=== PATIENT | male | born 1945 | race Caucasian/White ===

== ENCOUNTER → 2019-01-22 12:51 | Outpatient (CLI) | payer MEDICARE, MEDICAID, SELFPAY ==
--- NOTE | 2019-01-22 13:02 | XR_ITS ---
PROCEDURE: XR KNEE LT 3V CLINICAL INDICATION: POST TRAUMATIC OSTEOARTHRITIS COMPARISON: No exams were available for comparison FINDINGS: No fracture or dislocation. No lytic or blastic change. There is normal mineralization. There are mild osteoarthritic changes involving all 3 compartments. Other findings:There is a small suprapatellar effusion. Generalized vascular calcification noted. IMPRESSION: Mild osteoarthritis. Small suprapatellar effusion Dictated by: Joaquin Gonzalez MD 01/22/2019 16:25 Electronically signed by Joaquin Gonzalez MD in [place] 01/22/2019 16:25
--- NOTE | 2019-01-22 13:02 | XR_ITS ---
PROCEDURE: XR CERVICAL SPINE 5V CLINICAL INDICATION: NECK PIN Neck pain COMPARISON: No exams were available for comparison FINDINGS: Normal alignment. No fracture or dislocation. Multilevel degenerative disc disease from C3 to C7. Facet and uncovertebral hypertrophy with mild foraminal narrowing on the right at C3-C4 C4-C5 and C5-C6 and on the left at C3-C4 C4-C5 and C5-C6. Incidental carotid artery calcification noted. IMPRESSION: Degenerative changes of the cervical spine as described above Dictated by: Joaquin Gonzalez MD 01/22/2019 16:24 Electronically signed by Joaquin Gonzalez MD in [place] 01/22/2019 16:24
== END ==
PROVIDERS: PCP Family Medicine; Visit Provider Family Medicine
DX: M54.2 Cervicalgia (principal); M17.32 Unilateral post-traumatic osteoarthritis, left knee
CPT/HCPCS: 72050; 73562

== ENCOUNTER → 2019-02-12 13:25 | Outpatient (CLI) | payer MEDICARE, MEDICAID, SELFPAY ==
--- NOTE | 2019-02-12 13:28 | MR_ITS ---
PROCEDURE: MR CERVICAL SPINE WO CON CLINICAL INDICATION: ARTHROPATHY OF CERVICAL SPINE Neck pain extending to the back of the head COMPARISON: XR CERVICAL SPINE 5V from 01/22/2019 TECHNIQUE: Standard multiplanar multiecho sequences are performed without contrast. 3-D MIP and myelographic images are also rendered and reviewed FINDINGS: Normal alignment. Cranial cervical junction has an unremarkable appearance. There is multilevel degenerative disc disease as outlined below. C2-C3: Unremarkable. C3-C4: There degenerative disc disease with bulging disc and ridging of the endplates which is eccentric toward the right along with facet and uncovertebral hypertrophy with severe right-sided foraminal narrowing and right lateral recess narrowing and moderate to severe left-sided foraminal narrowing. C4-C5: Degenerate disc disease with bulging disc with uncovertebral hypertrophy and bilateral foraminal narrowing. C5-C6: Degenerate disc disease with bulging disc along with facet hypertrophic change with moderate to severe bilateral foraminal narrowing. C6-C7: Degenerate disc disease with bulging disc with October tuber 0 hypertrophy and moderate to severe right foraminal narrowing and severe left-sided foraminal and lateral recess narrowing. C7-T1: Mild degenerative disc disease. T1-T2: Mild degenerative disc disease with 3 mm anterolisthesis of T1. There degenerative disc disease also at T2-T3 and T3-T4. There is bulging disc at T3-T4 which is only imaged in the sagittal plane. The No canal stenosis or extruded herniated disc IMPRESSION: Cervical spondylosis with multilevel degenerative disc disease along with bulging disc and uncovertebral hypertrophy with multiple levels of foraminal and lateral recess narrowing. Please see above for detailed description at each level. Dictated by: Joaquin Gonzalez MD 02/14/2019 09:55 Electronically signed by Joaquin Gonzalez MD in [place] 02/14/2019 09:55
== END ==
PROVIDERS: PCP Psychiatry & Neurology Sleep Medicine; Visit Provider Family Medicine
DX: M47.812 Spondylosis without myelopathy or radiculopathy, cervical region (principal)
CPT/HCPCS: 72141; 76376

== ENCOUNTER → 2020-07-07 07:03 | Outpatient (CLI) | payer MEDICARE, OTHER, SELFPAY ==
[2020-07-07 08:43] LABS: Coronavirus 19 IgG Antibody Negative (Negative); Coronavirus 19 IgM Antibody Negative (Negative)
== END ==
PROVIDERS: Visit Provider Surgery
DX: Z01.812 Encounter for preprocedural laboratory examination (principal); Z20.822 Contact with and (suspected) exposure to COVID-19; Z12.11 Encounter for screening for malignant neoplasm of colon; Z13.810 Encounter for screening for upper gastrointestinal disorder; R10.13 Epigastric pain
CPT/HCPCS: 36415; 86328

== ENCOUNTER 2020-07-08 08:08 | Day surgery (SDC) | payer MEDICARE, OTHER, SELFPAY ==
[2020-07-04 13:36] VITALS: BMI 23.1
[2020-07-08 08:24] VITALS: BP 134/89; PULSE 78; RESP 18; TEMP 36.6; O2SAT 96
--- NOTE | 2020-07-08 08:51 | HMH.ANESCL ---
[facility] Anesthesia Checklist - Patient Identification Patient Identification: Arm Band - Structural Data Admitted From: Home Planned Operative Procedure/s: egd/colonoscopy Consent for Planned Operative Procedure(s) Verified: Yes Verified Documents: Surgical Consent, History and Physical - NPO Status Verified Time NPO: 00:00 - Additional verifications Anesthesia Reactions: No Hx Blood Transfusions: No Blood Transfusion Reaction: No - Airway Assessment C-Spine Mobility Assessed: Yes (mp2) TMJ Mobility Assessed: Yes Dentition: Edentulous - Neurological Assessment Level of Consciousness: Awake, Alert - Anesthesia Plan Anesthesia Risk discussed: Yes Anesthesia Plan: Verified ASA Class: II Anesthesia Type: MAC [facility] History I have reviewed the patient's past medical history: Yes 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: Reports:: Anxiety, Hyperlipidemia, Hypertension Denies:: Cancer, Diabetes Mellitus Type 1, Diabetes Mellitus Type 2, Internal Pacemaker, Lung Disease, MRSA, Seizures *Have you ever received a pneumonia vaccine?: Yes *Have you received a flu vaccine this season?: No Other 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: Reports: Hypothyroidism. Denies: Blood Transfusion Reaction Anesthesia experience/problems:: nac Other Surgeries: Yes: Colonoscopy, Hernia Repair, Other. No: Pacemaker Amputation: No Fractures: No - *Social History Last grade of school completed: 7th or 8th Smoking Status: Never smoker Tobacco Type: cigarettes #Yrs smoked (if former smoker): 25 Alcohol Intake: current Alcohol Intake Frequency:: holidays/special occasions only Substance Use Type: denies use, other *Occupational Status:: retired Housing: house Household Members: family *Travel in the last 8 weeks: None Family Hx:: Cancer
[2020-07-08 09:25] VITALS: O2SAT 97
[2020-07-08 10:16] VITALS: BP 114/81; PULSE 77; RESP 12; TEMP 36.6; O2SAT 92
--- NOTE | 2020-07-08 10:23 | HMH.SCOPE ---
- Procedure: Date: 07/08/20 Patient Date of :: 1945 Procedure Performed:: Esophagogastroduodenoscopy with biopsies Total colonoscopy to terminal ileum with polypectomy using biopsy forceps and snare Indications:: Patient is a 74-year-old male from [facility] referred by Dr. Tidwell at this time due to some symptoms of abdominal cramping and rectal bleeding. Patient is somewhat of a poor historian. I had performed colonoscopy on him on 02/13/2019. He had numerous polyps NINE of which were adenomatous polyps. I had recommended colonoscopy within 2 years. He does have apparent family history of polyps and he states that his father had 2 colon resections for polyps. He was referred because recently he had developed lower abdominal cramping type pain with rectal bleeding. He states that 10 years ago he was clinically diagnosed with an ulcer. He also has associated pain when eating. He is on sucralfate. Performing Provider:: Geoffrey Gomez MD Referring Provider:: Velasquez Tidwell MD Sedation:: MAC sedation Procedure:: He was positioned in lateral decubitus position. Adequate intravenous sedation was achieved. Olympus endoscope was inserted over the oropharynx. Advanced through the esophagus. Esophagus overall appeared normal except distally there was a couple of islands of possible Sanchez's esophagus. Gastroesophageal junction was encountered at approximately 40 cm from the incisors. Stomach was cannulated and insufflated. There is diffuse nonerosive mild to moderate gastritis. Gastric antral mucosal biopsies obtained for CLOtest for H. pylori. Biopsy was obtained of the antrum and mid body and sent as gastric biopsy for histopathologic analysis. Pylorus was traversed. Duodenal bulb and duodenal sweep appeared unremarkable. Endoscope was withdrawn into the distal esophagus and biopsies were obtained at the gastroesophageal junction to rule out Sanchez's esophagus. Endoscope was withdrawn. Next attention was turned to colonoscopy. He was positioned in lateral decubitus position. Adequate intravenous sedation was achieved with anesthesia titration of propofol. Patient did have some visible internal hemorrhoids. Digital examination was performed which was unremarkable. Variable stiffness Olympus colonoscope was inserted via the anus. It was advanced to the cecum with some difficulty due to significant floppiness and redundancy of the sigmoid colon. Ultimately ileocecal valve and appendiceal orifice were identified. Colonic preparation was fair to poor but adequate visualization was achieved with thorough irrigation and suctioning. The colonoscope was advanced a short distance into the terminal ileum which was grossly normal. Colonoscope was withdrawn into the colon. There was a tiny diminutive polyp in the cecum removed with biopsy forceps. He did have some degree of pandiverticulosis. In the sigmoid colon there was an adenomatous polyp removed with cold cutting snare. There was AN area of focal inflammation with minor mucosal irregularity in the sigmoid colon which was biopsied. Retroflexion within the rectum revealed nonpathologic internal hemorrhoids. Colonoscope was withdrawn. 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 This seems to have resolved. If he has H. pylori positivity plan to treat this. If he has evidence of Sanchez's may need proton pump inhibitors. Given the suboptimal preparation and previous history of 9 adenomatous polyps less than 2 years ago recommend repeat colonoscopy in 2 years. Complicat
[2020-07-08 10:25] VITALS: BP 134/94; PULSE 66; RESP 12; O2SAT 93
[2020-07-08 10:35] VITALS: BP 131/85; PULSE 70; RESP 16; O2SAT 96
[2020-07-08 10:45] VITALS: BP 154/88; PULSE 65; RESP 16; TEMP 36.6; O2SAT 100
== END 2020-07-08 10:49 | disposition home or self-care (01) ==
LOC: OUTP 08:10
PROVIDERS: PCP Family Medicine; Visit Provider Surgery
PROC: 0DJ08ZZ Inspection of Upper Intestinal Tract, Via Natural or Artificial Opening Endoscopic (ICD-10-PCS; CPT 43235; principal; 2020-07-08 09:30)
DX: K22.9 Disease of esophagus, unspecified (principal); K29.60 Other gastritis without bleeding; K63.5 Polyp of colon; K63.9 Disease of intestine, unspecified; K57.30 Diverticulosis of large intestine without perforation or abscess without bleeding; K56.2 Volvulus; K64.0 First degree hemorrhoids; Z86.010 Personal history of colon polyps; Z83.71 Family history of colonic polyps; I10 Essential (primary) hypertension; E78.5 Hyperlipidemia, unspecified; F41.9 Anxiety disorder, unspecified
CPT/HCPCS: 43239; 45380; 45385; 87339; 88305; 88342

== ENCOUNTER → 2020-08-01 11:07 | Outpatient (CLI) | payer MEDICARE, OTHER, SELFPAY ==
[2020-08-01 11:28] LABS: Blood Urea Nitrogen 19 mg/dl (9-20); Estimated Glomerular Filt Rate 65 ml/min (>60); GFR (African American) 79 ML/MIN (>60)
== END ==
PROVIDERS: Visit Provider Surgery
DX: R10.9 Unspecified abdominal pain (principal)
CPT/HCPCS: 36415; 82565; 84520

== ENCOUNTER 2020-08-01 11:50 | Inpatient (IN) | payer MEDICARE, OTHER, SELFPAY ==
[2020-08-01] VITALS (11 sets, daily range): BP systolic 105–148; BP diastolic 49–77; PULSE 66–78; RESP 17–20; TEMP 27.2–38.1; O2SAT 89–98; BMI 23.1; BMI 22.8
--- NOTE | 2020-08-01 12:17 | CT_ITS ---
PROCEDURE: CT ABDOMEN PELVIS W CON CLINICAL INDICATION: mid abd pain Left-sided abdominal pain with weight loss COMPARISON: CT CT ANGIO CHEST from 04/11/2019 TECHNIQUE: IV Contrast: 75ML Isovue 370 Oral Contrast None Axial images obtained with sagittal and coronal reformats. All CT scans at the facility use one or more dose reduction, viz: automated exposure control, ma/kV adjustment per patient size (including targeted exams where dose is matched to indication, i.e. head), or iterative reconstruction technique. FINDINGS: LOWER THORAX: There are atelectatic changes involving the right lung base posteriorly. There is dense consolidation involving the left lower lobe lateral basilar segment. This has progressed since an older exam of 04/11/2019. The left hemidiaphragm is elevated. Coronary artery calcifications are noted. ABDOMEN & PELVIS: The liver has an unremarkable appearance. There is focal nodular thickening of the fundus of the gallbladder measuring 1.8 by 1 cm. The adrenal glands have an unremarkable appearance. There is a focal zone of decreased enhancement involving the posterior and inferior aspect of the spleen extending superiorly to the central aspect of the spleen. This is consistent with a splenic infarction. The splenic vein is enlarged with stranding of the fat around the splenic vein. These findings are suggestive of splenic vein thrombosis. The superior mesenteric vein and portal vein have an unremarkable appearance. There is haziness of the mesenteric fat in the left upper quadrant at the hilum of the spleen. The pancreas appears unremarkable. There is some thickening of the left pericolic gutter. There is haziness of the pericolic fat in this region as well and may be due to local reaction/inflammation from the splenic vein pathology as opposed to colonic inflammation.. Unremarkable appearing right kidney. 7.7 cm left renal cyst is noted. There is also a 14 mm left renal cyst. There is a mild amount of retained colonic feces. No evidence of appendicitis. There is colonic diverticulosis but no evidence of diverticulitis. Small amount fluid is present in the pelvis. Urinary bladder is slightly distended. Status post hernia repair with mesh centrally and in the left inguinal region in the lower pelvic area. No acute bony finding. IMPRESSION: 1. 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 2. Focal thickening of the fundus of the gallbladder. Differential diagnosis would include polyp, neoplasm, versus focal inflammatory change. Gallbladder ultrasound initially suggested for further evaluation. MRI may be needed at some point. 3. Increasing consolidation/volume loss of the anterior basilar segment of the left lower lobe with elevated left hemidiaphragm. 4. Colonic diverticulosis without evidence of diverticulitis. 5. Dr. Baird was notified of these findings by telephone 08/01/2020 at 2:15 p.m. Dictated by: Joaquin Gonzalez MD 08/01/2020 14:21 Joaquin Gonzalez MD in [place] 08/01/2020 14:21
[2020-08-01 12:26] LABS: Microscopic, Urine URINE MICROSCOPIC (MICROSCOPIC)
--- NOTE | 2020-08-01 12:29 | HMH.EDABDPAI ---
ED Disposition Clinical Impression: Splenic infarct, Thrombophlebitis Disposition: Admitted As Inpatient Condition on Discharge: Good Referrals: Sherry Tidwell MD [Primary Care Provider] - - Critical Care Critical Care Time: No Attestation: On 08/01/20, the high probability of a clinically significant, sudden or life threatening deterioration of the following system(s) required my full and direct attention, intervention and personal management. The time I documented below is in addition to time spent performing reported procedures but includes the following listed in this critical care notation. Medical Decision Making - Medical Records Medical records reviewed: Yes: I reviewed the patient's medical records. - Ildefonso Inquiry Pt receiving controlled substance: No Vital Signs: 08/01/20 11:51 08/01/20 13:00 08/01/20 13:45 Temperature 98.9 F Temperature Source Oral Pulse Rate 68 78 Pulse Rate [Left Radial] 71 Respiratory Rate 18 20 18 Blood Pressure 148/72 H 135/75 Blood Pressure [Right Arm] 131/75 Blood Pressure Mean [Right Arm] 93 Blood Pressure Source [Right Arm] Automatic Cuff Blood Pressure Position [Right Arm] Sitting 02 Sat by Pulse Oximetry 93 L 96 95 Oxygen Delivery Method Room Air - Lab Data Lab results reviewed: Yes: I reviewed the patient's lab results. Lab Results 08/01/20 12:05: Urine Color Dk yellow, Urine Appearance Clear, Urine pH 6.0, Ur Specific [place] >= 1.030, Urine Protein Trace, Urine Glucose (UA) Negative, Urine Ketones 1+, Urine Blood Trace-i, Urine Nitrate Negative, Urine Bilirubin Negative, Urine Urobilinogen 0.2, Ur Leukocyte Esterase 1+ A, Urine RBC 3-5, Urine WBC 10-20, Ur Squamous Epith Cells Occasional, Amorphous Sediment 1+, Urine Bacteria None 08/01/20 12:05: WBC 13.2 H, RBC 5.13, Hgb 16.0, Hct 47.3, MCV 92.2, MCH 31.1, MCHC 33.8, RDW 13.8, Plt Count 198, MPV 8.0, Neut % (Auto) 73.9, Lymph % (Auto) 17.4, [place] % (Auto) 8.2, Eos % (Auto) 0.3, Baso % (Auto) 0.2, Neut # (Auto) 9.8 H, Lymph # (Auto) 2.3, [place] # (Auto) 1.1 H, Eos # (Auto) 0.0, Baso # (Auto) 0.0 08/01/20 12:05: Sodium 137, Potassium 4.3, Chloride 101, Carbon Dioxide 25, Anion Gap 15.3 H, BUN 19, Creatinine 1.10, Estimated GFR 65, Est GFR ( Amer) 79, Glucose 110 H, Calcium 9.9, Total Bilirubin 1.2, AST 32, ALT 41, Alkaline Phosphatase 113, Total Protein 8.5 H, Albumin 4.7, Globulin 3.8 H, Albumin/Globulin Ratio 1.2, Lipase 65 08/01/20 14:00: Lactate 0.8 Result diagrams: 08/01/20 12:05 08/01/20 12:05 Orders (Tests/Meds): ED MEDICATIONS Generic Name Dose Route Start Last Admin Trade Name Freq PRN Reason Stop Dose Admin Acetaminophen 650 mg 08/01/20 14:54 Acetaminophen 325mg Tab PO 08/31/20 14:53 Q4HP PRN As Needed for Fever or Pain Heparin Sodium/Dextrose 500 mls @ 29 mls/hr 08/01/20 14:45 Heparin 25,000 Units In D5w 500ml Premix IV 08/31/20 14:44 .[id number] TARA 1,450 UNITS/HR Ondansetron HCl 4 mg 08/01/20 14:54 Ondansetron 4mg/2ml Vial IV 08/31/20 14:53 Q8HP PRN Nausea Pantoprazole Sodium 40 mg 08/02/20 09:00 Pantoprazole 40mg Tablet PO 09/01/20 08:59 DAILY TARA Discontinued Medications Generic Name Dose Route Start Last Admin Trade Name Freq PRN Reason Stop Dose Admin Heparin Sodium (Porcine) 6,500 unit 08/01/20 14:45 Heparin Sodium 5,000 Unit/Ml Vial IV 08/01/20 14:46 ONCE ONE Sodium Chloride 1,000 mls @ 999 mls/hr 08/01/20 12:30 08/01/20 12:24 Sod Chlor 0.9% 1000ml Bag IV 08/01/20 13:30 999 mls/hr .Q1H1M TARA Administration Iopamidol 75 ml 08/01/20 13:33 08/01/20 13:33 Iopamidol-370 (76%);100ml Bottle IV 08/01/20 13:34 75 ml ONCE ONE Administration Sodium Chloride 10 ml 08/01/20 13:33 08/01/20 13:33 Sodium Chloride 0.9% 10ml Syr (Rad Only) IV 08/01/20 13:34 10 ml ONCE ONE Administration ORDERS Category Date Time Status Activated Partial Thrombo Time Stat
[2020-08-01 12:31] LABS: Basophils % 0.2 % (0.1-2.0); Eosinophils % 0.3 % (0.1-12.0); Hematocrit 47.3 % (42.0-52.0); Lymphocytes # 2.3 K/mm3 (0.7-4.5); Lymphocytes % 17.4 % (10-50); Mean Corpuscular HGB Conc 33.8 g/dL (31.8-35.4); Mean Corpuscular Hemoglobin 31.1 pg (27.0-31.2); Mean Corpuscular Volume 92.2 fl (80-94); Monocytes # 1.1 K/mm3 (0.1-1.0); Monocytes % 8.2 % (1.7-9.3); Neutrophils # 9.8 K/mm3 (1.8-7.8); Neutrophils % 73.9 % (37.0-80.0); Platelet Count 198 K/mm3 (142-424); Red Blood Count 5.13 M/mm3 (4.60-6.20); Red Cell Distribution Width 13.8 % (11.5-17.5); White Blood Count 13.2 K/mm3 (4.8-10.8)
[2020-08-01 12:33] LABS: Appearance,Urine CLEAR (Clear); Blood, Urine TRACE-I (Negative); Color,Urine DK YELLOW (Yellow); Glucose,Urine (UA) Negative (Negative); Ketones,Urine 1+ (Negative); Leukocyte Esterase,Urine 1+ (Negative); Nitrate,Urine Negative (Negative); Protein,Urine TRACE (Negative); Specific Gravity, Urine >= 1.030 (1.005-1.030); Urobilinogen,Urine 0.2 EU/dl (0.2)
[2020-08-01 12:35] LABS: Potassium 4.3 mmoL/L (3.5-5.1)
[2020-08-01 12:36] LABS: Bilirubin,Urine Negative (Negative); Chloride 101 mmol/L (98-107)
[2020-08-01 12:37] LABS: Blood Urea Nitrogen 19 mg/dl (9-20); Estimated Glomerular Filt Rate 65 ml/min (>60); GFR (African American) 79 ML/MIN (>60)
[2020-08-01 12:38] LABS: Alanine Aminotransferase 41 U/L (12-78); Albumin Level 4.7 g/dl (3.5-5.0); Albumin/Globulin Ratio 1.2 (1.1-1.8); Alkaline Phosphatase 113 U/L (38-126); Aspartate Amino Transferase 32 U/L (17-59); Bilirubin,Total 1.2 mg/dl (0.2-1.3); Calcium 9.9 mg/dl (8.4-10.2); Carbon Dioxide 25 mmol/L (22.0-30.0); Globulin 3.8 g/dL (1.3-3.2); Glucose 110 mg/dl (74-100); Lipase 65 U/L (23-300); Total Protein,Serum 8.5 g/dl (6.3-8.2)
[2020-08-01 12:41] LABS: Amorphous Sediment,Urine 1+ /lpf; Squamous Epithelial Cell,Urine Occasional #/hpf (0-5)
[2020-08-01 13:49] LABS: Anion Gap 15.3 mEq/L (5-15); Sodium 137 mmol/L (136-145)
[2020-08-01 14:14] LABS: Lactic Acid 0.8 mmol/L (0.7-2.1)
--- NOTE | 2020-08-01 14:30 | PC.NURSE ---
Dr Baird spoke with dr lozano
--- NOTE | 2020-08-01 14:46 | PC.NURSE ---
dr francois spoke with [facility].
[2020-08-01 15:07] LABS: Activated Partial Thrombo Time 24.8 seconds (22.8-30.6)
--- NOTE | 2020-08-01 15:08 | PC.NURSE ---
LAb coming to get more blood for labs needed for pt. Waiting on blood work before heparin is started per
--- NOTE | 2020-08-01 15:26 | PC.NURSE ---
COVID SWAB SENT TO LAB
[2020-08-01 15:36] LABS: Activated Partial Thrombo Time 24.4 seconds (22.8-30.6)
--- NOTE | 2020-08-01 16:30 | PC.NURSE ---
FAMILY AT BEDSIDE
--- NOTE | 2020-08-01 16:43 | HMH.HP ---
*Admission Date: 08/01/20 <Lawrence Scanlona - 08/01/20 16:49> *Chief complaint: abdominal pain <Lawrence Scanlona - 08/01/20 17:08> *History of present illness: This is a 74-year-old male with a past medical history significant for hypertension, hyperlipidemia, anxiety, hernia repair with mesh in the remote past who presents to the emergency department for evaluation of umbilical abdominal pain that radiates to the left lower quadrant and has been intermittent over the last 3 weeks. No fevers or vomiting though he has had nausea. Decreased urination, but no dysuria. Was constipated initially, but now has resolved. Had a colonoscopy within the last several weeks that was unremarkable. Just saw Dr. Gomez today, with no acute recommendations, however patient daughter still concerned so present here for evaluation. There are no exacerbating or alleviating factors. Patient with CT scan that shows splenic vein thrombophlebitis with associated splenic infarct, also incidentally some thickening of the gallbladder wall focally. This can be further evaluated with an ultrasound not emergently. No signs of biliary obstruction. Lipase within normal limits. I discussed this case with Dr. Sharma, on-call for general surgery who recommended vascular consult which we do not have here. I have called vascular surgery at [facility], Dr. Tolentino, who did not recommend any vascular intervention: He did recommend evaluation by GI for consideration of cirrhosis or other GI anomalies, a heparin drip with ultimate transition to oral anticoagulants, hypercoagulable work-up and general surgery evaluation to see if they might want to do a splenectomy. I discussed this case with Dr. Tran, on-call for Dr. Tidwell and patient will be admitted for further management. I also let Dr. Gomez know about the patient's condition. Patient remains comfortable here, with a white blood cell count of 13,000, no fever. He does have a concentrated urine, was given fluids for this. (above as per ER physician) <GhislaineLynette - 08/01/20 17:08> [facility] History I have reviewed the patient's past medical history: Yes <GhislaineLynette - 08/01/20 16:49> 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: Reports:: Anxiety, Heart Murmur, Hyperlipidemia, Hypertension, Seizures Denies:: Cancer, Diabetes Mellitus Type 1, Diabetes Mellitus Type 2, Internal Pacemaker, Lung Disease, MRSA <Lynette Scanlon 08/01/20 16:49> *Have you ever received a pneumonia vaccine?: No <Lynette Scanlon 08/01/20 16:49> *Have you received a flu vaccine this season?: No <Lynette Scanlon 08/01/20 16:49> Other 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: Reports: Hypothyroidism. Denies: Blood Transfusion Reaction <Lynette Scanlon 08/01/20 16:49> Other Surgeries: Yes: Colonoscopy, EGD, Hernia Repair, Other. No: Pacemaker <Lynette Scanlon 08/01/20 16:49> Amputation: No <Lynette Scanlon 08/01/20 16:49> Fractures: No <Lynette Scanlon 08/01/20 16:49> - *Social History Smoking Status: Never smoker <Lynette Scanlon 08/01/20 16:49> Tobacco Type: cigarettes <Lynette Scanlon 08/01/20 16:49> #Yrs smoked (if former smoker): 25 <Lynette Scanlon 08/01/20 16:49> Alcohol Intake: current <Lynette Scanlon 08/01/20 16:49> Alcohol Intake Frequency:: holidays/special occasions only <Lynette Scanlon 08/01/20 16:49> Substance Use Type: denies use, other <Lynette Scanlon 08/01/20 16:49> *Occupational Status:: retired <Lynette Scanlon 08/01/20 16:49> Housing: house <Lynette Scanlon 08/01/20 16:49> Household Members: family <Lynette Scanlon 08/01/20 16:49> *Travel in the last 8 weeks: None <Lynette Scanlon 08/01/20 17:08> - Psychiatric History Pschychiatric History:: Reports:: Anxiety <Lynette Scanlon 08/01/20 16:49> Family Hx:: Cancer, Coronary Artery Disease <Lynette Scanlon 08/01/20 16:49> Review of Systems - Constitutional Reports weakness, Denies body ache(s), Denies chills, Denies fever(s) <Lynette Scanlon 08/01/20 17:08> - Eyes Denies blurry vision, Denies
--- NOTE | 2020-08-01 17:30 | PC.NURSE ---
PT GIVEN DIET TRAY
[2020-08-01 17:37] LABS: INR 1.08 (0.9-1.1); Prothrombin Time 12.7 seconds (10.1-12.5)
[2020-08-01 17:40] LABS: Activated Partial Thrombo Time 57.3 seconds (22.8-30.6)
--- NOTE | 2020-08-01 18:07 | PC.NURSE ---
Matti in pharmacy states that the heparin can stay at the rate it is for now. States that they do 4 consecutive ptt draws and then adjust after those. Will continue to monitor
--- NOTE | 2020-08-01 18:44 | PC.NURSE ---
[facility] CALLED ORDERS FOR HEPARIN BOLUS 3000 UNITS, AND INCREASE DRIP TO 1650 UNITS
--- NOTE | 2020-08-01 19:02 | PC.NURSE ---
DR CURRAN AT BEDSIDE
--- NOTE | 2020-08-01 19:19 | PC.NURSE ---
REPORT TO TAVO
--- NOTE | 2020-08-01 19:48 | PC.NURSE ---
PT ARRIVED TO FLOOR VIA W/C FROM ED W/STAFF AT 194
[2020-08-01 20:22] LABS: Activated Partial Thrombo Time 84.8 seconds (22.8-30.6)
--- NOTE | 2020-08-01 20:29 | PC.NURSE ---
Report received from ER. Heparin gtt infusing at 1650 units/hr. Also confirmed with Sherry Plasencia.
--- NOTE | 2020-08-01 21:00 | PC.NURSE ---
pt had no needs,restock gloves in room and snacks. Shreyas
[2020-08-01 21:33] LABS: Activated Partial Thrombo Time 70.5 seconds (22.8-30.6); INR 1.09 (0.9-1.1); Prothrombin Time 12.8 seconds (10.1-12.5)
--- NOTE | 2020-08-01 21:54 | PC.NURSE ---
Continue heparin gtt at 1650 units/hr per Sherry Plasencia.
[2020-08-02 00:51] LABS: Activated Partial Thrombo Time 55.5 seconds (22.8-30.6)
--- NOTE | 2020-08-02 03:08 | PC.NURSE ---
Pt is currently sleeping at this time. C/O abdominal discomfort early in shift. Morphine administered per jul. Pt has not c/o any additional pain thus far. Heparin gtt is infusing @ 1700 units/hr. aPTT and CBC at 0600. Lungs are clear. BS active x4. Pt has ambulated in room without difficulty. Call light within reach. No other concerns at this time. Will continue to monitor.
[2020-08-02 04:00] VITALS: BP 121/76; PULSE 69; RESP 16; TEMP 36.8; O2SAT 93
[2020-08-02 05:20] VITALS: BMI 22.8
--- NOTE | 2020-08-02 05:23 | PC.NURSE ---
pt has no needs. Ice water,trash,dirty linen and room straighten up.Shreyas
[2020-08-02 07:16] LABS: Basophils % 0.4 % (0.1-2.0); Eosinophils # 0.1 K/mm3 (0.0-0.4); Eosinophils % 0.9 % (0.1-12.0); Hematocrit 42.8 % (42.0-52.0); Hemoglobin 14.5 g/dL (14.1-18.0); Lymphocytes # 1.7 K/mm3 (0.7-4.5); Mean Corpuscular HGB Conc 33.7 g/dL (31.8-35.4); Mean Corpuscular Volume 91.9 fl (80-94); Mean Platelet Volume 8.2 fl (7.4-10.4); Monocytes # 1.1 K/mm3 (0.1-1.0); Neutrophils # 7.6 K/mm3 (1.8-7.8); Neutrophils % 72.7 % (37.0-80.0); Platelet Count 168 K/mm3 (142-424); Red Blood Count 4.66 M/mm3 (4.60-6.20); Red Cell Distribution Width 13.8 % (11.5-17.5); White Blood Count 10.4 K/mm3 (4.8-10.8)
[2020-08-02 07:31] LABS: Activated Partial Thrombo Time 50.5 seconds (22.8-30.6)
[2020-08-02 08:00] VITALS: BP 114/65; PULSE 97; RESP 18; TEMP 36.6; O2SAT 94
--- NOTE | 2020-08-02 08:48 | HMH.ACPN2 ---
Internal Medicine - PN: Subj *Date: 08/02/20 *Time: 08:48 Interval history: Patient feels a little better today, ate some breakfast. Exam Vital signs and Labs for Last 24 Hours: Temp Pulse Resp BP Pulse Ox 97.9 F 97 H 18 114/65 94 L 08/02/20 08:00 08/02/20 08:00 08/02/20 08:00 08/02/20 08:00 08/02/20 08:00 Laboratory Results - last 24 hr 08/01/20 12:05: Urine Color Dk yellow, Urine Appearance Clear, Urine pH 6.0, Ur Specific [place] >= 1.030, Urine Protein Trace, Urine Glucose (UA) Negative, Urine Ketones 1+, Urine Blood Trace-i, Urine Nitrate Negative, Urine Bilirubin Negative, Urine Urobilinogen 0.2, Ur Leukocyte Esterase 1+ A, Urine RBC 3-5, Urine WBC 10-20, Ur Squamous Epith Cells Occasional, Amorphous Sediment 1+, Urine Bacteria None 08/01/20 12:05: WBC 13.2 H, RBC 5.13, Hgb 16.0, Hct 47.3, MCV 92.2, MCH 31.1, MCHC 33.8, RDW 13.8, Plt Count 198, MPV 8.0, Neut % (Auto) 73.9, Lymph % (Auto) 17.4, [place] % (Auto) 8.2, Eos % (Auto) 0.3, Baso % (Auto) 0.2, Neut # (Auto) 9.8 H, Lymph # (Auto) 2.3, [place] # (Auto) 1.1 H, Eos # (Auto) 0.0, Baso # (Auto) 0.0 08/01/20 12:05: Sodium 137, Potassium 4.3, Chloride 101, Carbon Dioxide 25, Anion Gap 15.3 H, BUN 19, Creatinine 1.10, Estimated GFR 65, Est GFR ( Amer) 79, Glucose 110 H, Calcium 9.9, Total Bilirubin 1.2, AST 32, ALT 41, Alkaline Phosphatase 113, Total Protein 8.5 H, Albumin 4.7, Globulin 3.8 H, Albumin/Globulin Ratio 1.2, Lipase 65 08/01/20 12:15: APTT 24.8 08/01/20 14:00: Lactate 0.8 08/01/20 15:13: APTT 24.4 08/01/20 17:12: PT 12.7 H, INR 1.08, APTT 57.3 H* D 08/01/20 18:10: APTT 46.0 H D 08/01/20 19:57: APTT 84.8 H* D 08/01/20 21:05: PT 12.8 H, INR 1.09, APTT 70.5 H* D 08/02/20 00:10: APTT 55.5 H* D 08/02/20 06:12: APTT 50.5 H* 08/02/20 06:12: WBC 10.4, RBC 4.66, Hgb 14.5, Hct 42.8, MCV 91.9, MCH 31.0, MCHC 33.7, RDW 13.8, Plt Count 168, MPV 8.2, Neut % (Auto) 72.7, Lymph % (Auto) 16.0, [place] % (Auto) 10.0 H, Eos % (Auto) 0.9, Baso % (Auto) 0.4, Neut # (Auto) 7.6, Lymph # (Auto) 1.7, [place] # (Auto) 1.1 H, Eos # (Auto) 0.1, Baso # (Auto) 0.0 I & O for Last 24 hours: Intake & Output 07/30/20 07/31/20 08/01/20 08/02/20 23:59 23:59 23:59 23:59 Intake Total 240 / 240 Balance 240 / 240 Weight 178 lb 6 oz 178 lb 6.016 oz Microbiology Reports for the Last 24 Hours: Microbiology 08/01/20 15:20 Nasopharyngeal Coronavirus COVID-19 PCR - Final - Constitutional no acute distress - *Routine HEENT Exam Head: Present: normocephalic Eye: Present: EOMI ENT: Present: mucous membranes moist - *Routine Neck Exam Present: supple. Absent: lymphadenopathy - *Routine Respiratory Exam Present: CTA bilaterally - *Routine Cardiovascular Exam Present: RRR - *Routine Abdominal Exam Present: soft, normoactive bowel sounds, tenderness (LUQ) - *Routine Extremities Exam Absent: cyanosis, clubbing, edema - *Routine Skin Exam Present: warm. Absent: rash - *Routine Neurological Exam Present: alert Assessment and Plan (1) Splenic vein thrombosis Status: Acute Category: Medical Code(s): I82.890 - Acute embolism and thrombosis of other specified veins (2) Splenic infarct Status: Acute Category: Medical Code(s): D73.5 - Infarction of spleen (3) Abdominal pain Status: Acute Category: Medical Code(s): R10.9 - Unspecified abdominal pain (4) Hypothyroidism Status: Chronic Category: Medical Code(s): E03.9 - Hypothyroidism, unspecified (5) Hypertension Status: Chronic Category: Medical Code(s): I10 - Essential (primary) hypertension (6) Seizure disorder Status: Acute Category: Medical Code(s): G40.909 - Epilepsy, unspecified, not intractable, without status epilepticus (7) Anxiety Status: Acute Category: Medical Code(s): F41.9 - Anxiety disorder, unspecified - Assessment and plan all Dx Assessment and Plan for all problems:: Plan to start Coumadin this morning.
--- NOTE | 2020-08-02 12:10 | HMH.PHAHEP ---
[facility] Heparin Dosing - Demographic Data Admission date:: 08/01/20 Date: 08/01/20 Time: 15:00 Allergies/Adverse Reactions: Allergies Allergy/AdvReac Type Severity Reaction Status Date / Time No Known Allergies Allergy Verified 08/01/20 10:12 Height: 1.88 m Weight: 80.9 kg - Indication Medication therapy:: Heparin Patient Problems: Current Active Problems Splenic infarct (Acute) Hypothyroidism (Chronic) Hypertension (Chronic) Splenic vein thrombosis (Acute) Seizure disorder (Acute) Anxiety (Acute) Abdominal pain (Acute) Thrombophlebitis (Acute) Constipation (Acute) Gallbladder mass (Acute) CVA?: No Bleeding problem?: No Kidney disease?: No MD?: No Desired PTT range:: 50-70 seconds Comments:: 50-75 - Labs Anticoagulation Lab Results:: 08/01/20 08/02/20 12:05 06:12 Hgb 16.0 14.5 Hct 47.3 42.8 Plt Count 198 168 - Monitoring Dose Monitor 1 Date: 08/01/20 Time: 15:13 PTT Result:: 24.4 Infusion Rate:: 1450 UNITS/HR Comment:: 6500 UNIT BOLUS PLT 198K Dose Monitor 2 Date: 08/01/20 Time: 17:12 PTT Result:: 57.3 Infusion Rate:: 1450 UNITS/HR Dose Monitor 3 Date: 08/01/20 Time: 18:10 PTT Result:: 46.0 Infusion Rate:: 1650 UNITS/HR Comment:: 3000 UNIT BOLUS Dose Monitor 4 Date: 08/01/20 Time: 19:57 PTT Result:: 84.8 Infusion Rate:: 1650 UNITS/HR Dose Monitor 5 Date: 08/01/20 Time: 21:05 PTT Result:: 70.5 Infusion Rate:: 1650 UNITS/HR Dose Monitor 6 Date: 08/02/20 Time: 00:10 PTT Result:: 55.5 Infusion Rate:: 1650 UNITS/HR Dose Monitor 7 Date: 08/02/20 Time: 08:15 PTT Result:: 50.5 Infusion Rate:: INCREASE TO 1700 UNIT/HR Comment:: PLT 168K Dose Monitor 8 Date: 08/02/20 Time: 14:25 PTT Result:: 50.4 Infusion Rate:: PATIENT'S PTT CONTINUES TO DECREASE EVEN WITH SMALL INCREASE OF 50 UNITS/HR OF HEPARIN FROM 1650 UNITS/HR TO 1700 UNITS/HR. WILL INCREASE TO 1900 UNITS/HR AND RECHECK IN 6 HOURS. Dose Monitor 9 Date: 08/02/20 Time: 20:55 PTT Result:: 62.5 Infusion Rate:: CONTINUE WITH HEPARIN 1900 UNITS/HR AT THIS TIME. Dose Monitor 10 Date: 08/03/20 Time: 06:17 PTT Result:: 65.8 Infusion Rate:: RECOMMEND CONTINUING WITH CURRENT RATE OF HEPARIN 1900 UNITS/HR AT THIS TIME. WILL RECHECK TONIGHT AT 1800 AND IN THE AM AT 0600 PATIENT IS ALSO STARTED WARFARIN. Comment:: PLT 170K Dose Monitor 11 Date: 08/03/20 Time: 18:00 PTT Result:: 84.4 Infusion Rate:: DROPPING INFUSION RATE TO 1700 UNIT/HR. PATIENT CURRENTLY RECEIVING WARFARIN 5 MG DAILY AND HAS HAD 2 DOSE THUS FAR. PTT BUMPED UP FROM THE MID 60'S OVER THE LAST 24 HRS WHILE RUNNING AT 1900 UNITS/HR OF HEPARIN. Dose Monitor 12 Date: 08/04/20 Time: 06:00 PTT Result:: 52.2 Infusion Rate:: CONTINUE WITH CURRENT HEPARIN RATE OF 1700 UNITS/HR. WILL RECHECK AT 1800 PATIENT PTT DECREASED EXPECTED AND CONTINUES WITH WARFARIN 5 MG DAILY. Dose Monitor 13 Date: 08/04/20 Time: 18:00 PTT Result:: 51.4 Infusion Rate:: 1700 UNITS/HR Dose Monitor 14 Date: 08/05/20 Time: 06:00 PTT Result:: PTT 66.6 Infusion Rate:: DRIP D/C INR 2.11 - Core Measures Is INR > or = 2 at discharge?: Yes Most Recent Labs:: Laboratory Results - last 24 hr 08/01/20 12:05: Urine Color Dk yellow, Urine Appearance Clear, Urine pH 6.0, Ur Specific [place] >= 1.030, Urine Protein Trace, Urine Glucose (UA) Negative, Urine Ketones 1+, Urine Blood Trace-i, Urine Nitrate Negative, Urine Bilirubin Negative, Urine Urobilinogen 0.2, Ur Leukocyte Esterase 1+ A, Urine RBC 3-5, Urine WBC 10-20, Ur Squamous Epith Cells Occasional, Amorphous Sediment 1+, Urine Bacteria None 08/01/20 12:05: WBC 13.2 H, RBC 5.13, Hgb 16.0, Hct 47.3, MCV 92.2, MCH 31.1, MCHC 33.8, RDW 13.8, Plt Count 198, MPV 8.0, Neut % (Auto) 73.9, Lymph % (Auto) 17.4, [place] %
--- NOTE | 2020-08-02 13:47 | P.CONPHA_ITS ---
[facility] Pharmacy VTE Monitoring - Patient Demographics Admission date: 08/02/20 Report Date: 08/02/20 Time: 13:47 Allergies/Adverse Reactions: Patient Allergies No Known Allergies Allergy (Verified 08/01/20 10:12) Height: 1.88 m Weight: 80.9 kg Patient Problems: Current Active Problems Splenic infarct (Acute) Hypothyroidism (Chronic) Hypertension (Chronic) Splenic vein thrombosis (Acute) Seizure disorder (Acute) Anxiety (Acute) Abdominal pain (Acute) Thrombophlebitis (Acute) - VTE Risk Labs: VTE Related Lab Results Hgb 14.5 g/dL (14.1-18.0) 08/02/20 06:12 Hct 42.8 % (42.0-52.0) 08/02/20 06:12 Plt Count 168 K/mm3 (142-424) 08/02/20 06:12 PT 12.8 seconds (10.1-12.5) H 08/01/20 21:05 INR 1.09 (0.9-1.1) 08/01/20 21:05 APTT 50.5 seconds (22.8-30.6) H* 08/02/20 06:12 BUN 19 mg/dl (9-20) 08/01/20 12:05 Creatinine 1.10 mg/dl (0.66-1.25) 08/01/20 12:05 VTE Risk Level: Low Risk - Prophylaxis Types of VTE Prophylaxis: Pharmacological Pharmacologic Type: Heparin - VTE Diagnosis Confirmed Treatment or plan recommended: Add Heparin, Add Warfarin (PATIENT STARTED ON HEPARIN OVERNIGHT. WARFARIN ADDED THIS AM.)
[2020-08-02 14:44] LABS: Activated Partial Thrombo Time 50.4 seconds (22.8-30.6)
--- NOTE | 2020-08-02 15:20 | PC.NURSE ---
Pt is alert and oriented x4. Lungs are clear, bowel sounds active x4. Lower abdominal quads are tender to palpation. Pt reports some pain in lower abd quads that radiate into his back. He has utilized a urinal at the bedside. Urine is clear and straw in color. He has rested in bed and slept intermittently throughout the shift. Appetite has been good eating most of the food on his tray. He states his last BM was on 08/01. Heparin adjusted per pharmacy instruction. No other complaints verbalized. Will continue to monitor.
[2020-08-02 15:29] VITALS: BP 108/56; PULSE 79; RESP 19; TEMP 36.8; O2SAT 93
[2020-08-02 19:43] VITALS: BP 119/63; PULSE 73; RESP 28; TEMP 37.2; O2SAT 91
[2020-08-02 21:22] LABS: Activated Partial Thrombo Time 62.5 seconds (22.8-30.6)
--- NOTE | 2020-08-02 22:20 | PC.NURSE ---
Spoke with Sherry Plasencia in pharmacy. No changes to Heaprin gtt. Currently infusing at 1900 units/hr.
[2020-08-03] VITALS (8 sets, daily range): BP systolic 117–135; BP diastolic 71–80; PULSE 67–87; RESP 16–20; TEMP 36.6–37.3; O2SAT 88–95; BMI 22.6
--- NOTE | 2020-08-03 04:43 | PC.NURSE ---
No acute changes. Pt has rested well this shift. Continues to c/o discomfort and tenderness to abdomen. Declined pain medication. Pt has had good urine output. 800 cc. Lungs CTA. BS hyperactive. Medications administered per jul. Heparin gtt is infusing @ 1900 units/hr. aPTT to be drawn @ 0600. Will continue to monitor.
--- NOTE | 2020-08-03 06:38 | PC.NURSE ---
Pt placed on 2L O2 NC this AM due to sat of 89%. He is currently 92%.
[2020-08-03 07:14] LABS: Basophils % 0.2 % (0.1-2.0); Eosinophils # 0.1 K/mm3 (0.0-0.4); Eosinophils % 1.5 % (0.1-12.0); Hemoglobin 13.2 g/dL (14.1-18.0); Lymphocytes # 2.1 K/mm3 (0.7-4.5); Lymphocytes % 23.2 % (10-50); Mean Corpuscular HGB Conc 33.8 g/dL (31.8-35.4); Mean Corpuscular Hemoglobin 30.9 pg (27.0-31.2); Mean Corpuscular Volume 91.4 fl (80-94); Mean Platelet Volume 7.9 fl (7.4-10.4); Monocytes # 0.9 K/mm3 (0.1-1.0); Monocytes % 9.7 % (1.7-9.3); Neutrophils % 65.4 % (37.0-80.0); Platelet Count 170 K/mm3 (142-424); Red Blood Count 4.27 M/mm3 (4.60-6.20); Red Cell Distribution Width 13.5 % (11.5-17.5); White Blood Count 9.2 K/mm3 (4.8-10.8)
[2020-08-03 07:27] LABS: Activated Partial Thrombo Time 65.8 seconds (22.8-30.6)
--- NOTE | 2020-08-03 08:21 | PC.NURSE ---
Addendum entered by Cassy Waller RN 08/03/20 15:04: seizure pads removed per MD Original Note: Seizure pads per MD
--- NOTE | 2020-08-03 08:21 | HMH.ACPN2 ---
Internal Medicine - PN: Subj *Date: 08/03/20 *Time: 08:21 Interval history: Patient feels a little better this morning. Had some pain after eating breakfast. Exam Vital signs and Labs for Last 24 Hours: Temp Pulse Resp BP Pulse Ox 97.8 F 78 16 129/78 95 08/03/20 07:51 08/03/20 07:51 08/03/20 07:51 08/03/20 07:51 08/03/20 07:51 Laboratory Results - last 24 hr 08/02/20 14:25: APTT 50.4 H* 08/02/20 20:55: APTT 62.5 H* D 08/03/20 06:17: APTT 65.8 H* 08/03/20 06:17: WBC 9.2, RBC 4.27 L, Hgb 13.2 L, Hct 39.0 L, MCV 91.4, MCH 30.9, MCHC 33.8, RDW 13.5, Plt Count 170, MPV 7.9, Neut % (Auto) 65.4, Lymph % (Auto) 23.2, [place] % (Auto) 9.7 H, Eos % (Auto) 1.5, Baso % (Auto) 0.2, Neut # (Auto) 6.0, Lymph # (Auto) 2.1, [place] # (Auto) 0.9, Eos # (Auto) 0.1, Baso # (Auto) 0.0 I & O for Last 24 hours: Intake & Output 07/31/20 08/01/20 08/02/20 08/03/20 23:59 23:59 23:59 23:59 Intake Total 600 / 600 360 / 360 Output Total 700 / 700 800 / 800 Balance -100 / -100 -440 / -440 Weight 178 lb 6 oz 178 lb 5.663 oz 176 lb 2 oz Microbiology Reports for the Last 24 Hours: Microbiology 08/01/20 12:05 Urine,Clean Catch Urine Culture - Preliminary NO GROWTH AFTER 24 HOURS - Constitutional no acute distress - *Routine HEENT Exam Head: Present: normocephalic Eye: Present: EOMI ENT: Present: mucous membranes moist - *Routine Neck Exam Present: supple. Absent: lymphadenopathy - *Routine Respiratory Exam Present: CTA bilaterally - *Routine Cardiovascular Exam Present: RRR - *Routine Abdominal Exam Present: soft, normoactive bowel sounds, tenderness (LUQ). Absent: rebound, guarding - *Routine Extremities Exam Absent: cyanosis, clubbing, edema - *Routine Skin Exam Present: warm. Absent: rash - *Routine Neurological Exam Present: alert, oriented X3 Assessment and Plan (1) Splenic vein thrombosis Status: Acute Category: Medical Code(s): I82.890 - Acute embolism and thrombosis of other specified veins (2) Splenic infarct Status: Acute Category: Medical Code(s): D73.5 - Infarction of spleen (3) Abdominal pain Status: Acute Category: Medical Code(s): R10.9 - Unspecified abdominal pain (4) Hypothyroidism Status: Chronic Category: Medical Code(s): E03.9 - Hypothyroidism, unspecified (5) Hypertension Status: Chronic Category: Medical Code(s): I10 - Essential (primary) hypertension (6) Seizure disorder Status: Acute Category: Medical Code(s): G40.909 - Epilepsy, unspecified, not intractable, without status epilepticus (7) Anxiety Status: Acute Category: Medical Code(s): F41.9 - Anxiety disorder, unspecified - Assessment and plan all Dx Assessment and Plan for all problems:: Continue Heparin and Coumadin, check INR tomorrow morning.
--- NOTE | 2020-08-03 15:05 | PC.NURSE ---
Pt is alert and oriented x 4. Lungs are clear. He is currently on 1L NC. I attempted to wean O2 today, O2 sats were reading low 90's on 1L NC. RA sats were 86-88% so patient was placed back on 1L NC. He denies chest pain or soa. He states he is feeling better today. He states his appetite is better and abdominal pain isn't as bad. Urine is clear and straw, output this shift thus far has been 1300mls. No complaints verbalized and no change from morning assessment.
[2020-08-03 18:17] LABS: Activated Partial Thrombo Time 84.4 seconds (22.8-30.6)
--- NOTE | 2020-08-03 18:24 | PC.NURSE ---
HEPARIN DECREASED TO 1700 UNITS/HR PER J UPTON, PHARM
[2020-08-04 03:39] VITALS: BP 116/72; PULSE 99; RESP 18; TEMP 36.6; O2SAT 91
[2020-08-04 05:38] VITALS: BMI 22.6
--- NOTE | 2020-08-04 05:38 | PC.NURSE ---
Pt is A&O x4. Currently on RA with O2 sat of 91%. Lungs are CTA. BS active. C/O abdominal tenderness this shift, but declined any pain medication. Pt remains on Heparin gtt infusing @ 1700 units/hr. Pt has ambulated in room. Had one incontinent episode of urine this shift. No other concerns. Call light within reach. Seizure pads off per MD. Will continue to monitor.
[2020-08-04 07:19] LABS: Basophils % 0.3 % (0.1-2.0); Eosinophils # 0.2 K/mm3 (0.0-0.4); Eosinophils % 3.1 % (0.1-12.0); Hemoglobin 13.3 g/dL (14.1-18.0); Lymphocytes # 1.7 K/mm3 (0.7-4.5); Lymphocytes % 23.2 % (10-50); Mean Corpuscular HGB Conc 33.3 g/dL (31.8-35.4); Mean Corpuscular Hemoglobin 30.9 pg (27.0-31.2); Mean Corpuscular Volume 92.8 fl (80-94); Mean Platelet Volume 7.8 fl (7.4-10.4); Monocytes # 0.7 K/mm3 (0.1-1.0); Monocytes % 9.3 % (1.7-9.3); Neutrophils # 4.7 K/mm3 (1.8-7.8); Neutrophils % 64.1 % (37.0-80.0); Platelet Count 202 K/mm3 (142-424); Red Blood Count 4.31 M/mm3 (4.60-6.20); Red Cell Distribution Width 13.6 % (11.5-17.5); White Blood Count 7.3 K/mm3 (4.8-10.8)
[2020-08-04 07:26] LABS: Anion Gap 11.2 mEq/L (5-15); Blood Urea Nitrogen 12 mg/dl (9-20); Carbon Dioxide 25 mmol/L (22.0-30.0); Chloride 105 mmol/L (98-107); Creatinine Clearance Estimated 71 mL/min (50-200); Estimated Glomerular Filt Rate 82 ml/min (>60); GFR (African American) 99 ML/MIN (>60); Glucose 105 mg/dl (74-100); Potassium 4.2 mmoL/L (3.5-5.1); Sodium 137 mmol/L (136-145)
[2020-08-04 07:28] LABS: INR 1.19 (0.9-1.1); Prothrombin Time 13.9 seconds (10.1-12.5)
[2020-08-04 07:30] LABS: Activated Partial Thrombo Time 52.2 seconds (22.8-30.6)
--- NOTE | 2020-08-04 07:53 | HMH.ACPN2 ---
Internal Medicine - PN: Subj *Date: 08/04/20 *Time: 07:53 Interval history: Patient states he did not sleep. He is eating well. Bowels have not moved. He was voiding QS. He states his abdomen feels full after drinking water. He denies shortness of breath. He ambulates to the bathroom without difficulty. INR is 1.19 this a.m. Hemoglobin is 13.3 and hematocrit of 40. Blood chemistries are satisfactory. Exam Vital signs and Labs for Last 24 Hours: Temp Pulse Resp BP Pulse Ox 97.9 F 99 H 18 116/72 91 L 08/04/20 03:39 08/04/20 03:39 08/04/20 03:39 08/04/20 03:39 08/04/20 03:39 Laboratory Results - last 24 hr 08/03/20 17:55: APTT 84.4 H* D 08/04/20 06:47: WBC 7.3, RBC 4.31 L, Hgb 13.3 L, Hct 40.0 L, MCV 92.8, MCH 30.9, MCHC 33.3, RDW 13.6, Plt Count 202, MPV 7.8, Neut % (Auto) 64.1, Lymph % (Auto) 23.2, [place] % (Auto) 9.3, Eos % (Auto) 3.1, Baso % (Auto) 0.3, Neut # (Auto) 4.7, Lymph # (Auto) 1.7, [place] # (Auto) 0.7, Eos # (Auto) 0.2, Baso # (Auto) 0.0 08/04/20 06:47: PT 13.9 H, INR 1.19 H, APTT 52.2 H* D 08/04/20 06:47: Sodium 137, Potassium 4.2, Chloride 105, Carbon Dioxide 25, Anion Gap 11.2, BUN 12 D, Creatinine 0.90, Estimated Creat Clear 71, Estimated GFR 82, Est GFR ( Amer) 99 D, Glucose 105 H, Calcium 9.0 I & O for Last 24 hours: Intake & Output 08/01/20 08/02/20 08/03/20 08/04/20 11:59 11:59 11:59 11:59 Intake Total 240 / 240 720 / 720 1471 / 1471 Output Total 2250 / 2250 1550 / 1550 Balance 240 / 240 -1530 / -1530 -79 / -79 Weight 180 lb 178 lb 6.016 oz 176 lb 2 oz 176 lb 5.917 oz Microbiology Reports for the Last 24 Hours: Microbiology 08/01/20 12:05 Urine,Clean Catch Urine Culture - Final NO GROWTH AFTER 48 HOURS - Constitutional no acute distress Comments: Sitting in chair at bedside eating breakfast and appears comfortable - *Routine Respiratory Exam Present: crackles (Few bibasilar) - *Routine Cardiovascular Exam Present: RRR - *Routine Abdominal Exam Present: soft, normoactive bowel sounds. Absent: tenderness, distended - *Routine Extremities Exam Absent: edema, calf tenderness - *Routine Neurological Exam Present: alert, oriented X3 Assessment and Plan (1) Splenic vein thrombosis Status: Acute Category: Medical Code(s): I82.890 - Acute embolism and thrombosis of other specified veins (2) Splenic infarct Status: Acute Category: Medical Code(s): D73.5 - Infarction of spleen (3) Abdominal pain Status: Acute Category: Medical Code(s): R10.9 - Unspecified abdominal pain (4) Hypothyroidism Status: Chronic Category: Medical Code(s): E03.9 - Hypothyroidism, unspecified (5) Hypertension Status: Chronic Category: Medical Code(s): I10 - Essential (primary) hypertension (6) Seizure disorder Status: Acute Category: Medical Code(s): G40.909 - Epilepsy, unspecified, not intractable, without status epilepticus (7) Anxiety Status: Acute Category: Medical Code(s): F41.9 - Anxiety disorder, unspecified - Assessment and plan all Dx Assessment and Plan for all problems:: INR is not yet therapeutic. We will continue with Coumadin. We will add MiraLAX.
[2020-08-04 08:00] VITALS: BP 136/71; PULSE 88; RESP 18; TEMP 36.7; O2SAT 90
[2020-08-04 16:00] VITALS: BP 146/83; PULSE 87; RESP 20; TEMP 36.9; O2SAT 93
--- NOTE | 2020-08-04 18:27 | PC.NURSE ---
No acute changes. Pt remains on room air. Independent w/ ADL's. Ambulates back and forth to bathroom w/o safety concerns. Pt voiding w/o difficulty. Started on mirilax this AM, has had multiple small stools, was also given prune juice per pt request. Heparin gtt continues to infused @ 1700 units/hr. Call ani w/in reach. No concerns voiced.
[2020-08-04 18:40] LABS: Activated Partial Thrombo Time 51.4 seconds (22.8-30.6)
[2020-08-04 19:50] VITALS: BP 133/69; PULSE 84; RESP 16; TEMP 36.5; O2SAT 94
[2020-08-05 02:15] LABS: Anti-Cardio Antibody IgM <9 MPL U/mL (0-12); Anti-Cardiolipin Antibody IgG <9 GPL U/mL (0-14); Anti-Thrombin III Antigen 93 % (72-124); Anticardiolipin Ab,IgA,Qn <9 APL U/mL (0-11); Antithrombin Activity 96 % (75-135); Protein C Functional 64 % (73-180); Protein S Functional 89 % (63-140)
--- NOTE | 2020-08-05 03:18 | PC.NURSE ---
NO acute changes overnight, pt slept well through the night. Pt has no c/o pain. Lungs CTA, on room air. Pt able to ambulate to BR independently. Heparin gtt @ 1700 units/hr. Bowel sounds x4, abd soft and nontender. VSS, call light in reach, no concerns at this time.
[2020-08-05 03:49] VITALS: BP 133/71; PULSE 80; RESP 18; TEMP 36.6; O2SAT 92
[2020-08-05 04:58] VITALS: BMI 22.6
[2020-08-05 06:55] LABS: Basophils % 0.3 % (0.1-2.0); Eosinophils # 0.3 K/mm3 (0.0-0.4); Eosinophils % 4.1 % (0.1-12.0); Hematocrit 41.5 % (42.0-52.0); Hemoglobin 13.7 g/dL (14.1-18.0); Lymphocytes # 1.4 K/mm3 (0.7-4.5); Mean Corpuscular Hemoglobin 30.8 pg (27.0-31.2); Mean Corpuscular Volume 93.4 fl (80-94); Mean Platelet Volume 8.2 fl (7.4-10.4); Monocytes # 0.8 K/mm3 (0.1-1.0); Monocytes % 11.7 % (1.7-9.3); Neutrophils # 4.3 K/mm3 (1.8-7.8); Platelet Count 220 K/mm3 (142-424); Red Blood Count 4.45 M/mm3 (4.60-6.20); Red Cell Distribution Width 13.8 % (11.5-17.5); White Blood Count 6.8 K/mm3 (4.8-10.8)
[2020-08-05 07:05] LABS: INR 2.11 (0.9-1.1); Prothrombin Time 23.6 seconds (10.1-12.5)
[2020-08-05 07:22] VITALS: BP 135/81; PULSE 74; RESP 18; TEMP 36.6; O2SAT 94
[2020-08-05 07:28] LABS: Activated Partial Thrombo Time 66.6 seconds (22.8-30.6)
--- NOTE | 2020-08-05 08:03 | P.PN_ITS ---
Internal Medicine - PN: Subj *Date: 08/05/20 *Time: 08:03 Interval history: Patient's biggest concern today is that his bowels have not moved. According to nursing documentation he has had 2 stools. He adamantly denies having any. He states he is not passing gas. He says it is a big problem. He does have some abdominal discomfort mainly on the left side. He feels he is breathing okay and denies chest pain. But is afraid to eat. He is ambulated to the bathroom. INR today is 2.11. Exam Vital signs and Labs for Last 24 Hours: Temp Pulse Resp BP Pulse Ox 97.9 F 74 18 135/81 94 L 08/05/20 07:22 08/05/20 07:22 08/05/20 07:22 08/05/20 07:22 08/05/20 07:22 Laboratory Results - last 24 hr 08/01/20 15:13: Functional Protein C 64 L, Functional Protein S 89 08/01/20 15:13: Antithrombin III Ag 93, Antithrombin III Activ 96 08/01/20 15:13: Anti-Cardiolipin IgG Ab <9, Anti-Cardiolipin IgA Ab <9, Anti- Cardiolipin IgM Ab <9 08/04/20 18:13: APTT 51.4 H* 08/05/20 06:12: WBC 6.8, RBC 4.45 L, Hgb 13.7 L, Hct 41.5 L, MCV 93.4, MCH 30.8, MCHC 33.0, RDW 13.8, Plt Count 220, MPV 8.2, Neut % (Auto) 64.0, Lymph % (Auto) 20.0, [place] % (Auto) 11.7 H, Eos % (Auto) 4.1, Baso % (Auto) 0.3, Neut # (Auto) 4.3, Lymph # (Auto) 1.4, [place] # (Auto) 0.8, Eos # (Auto) 0.3, Baso # (Auto) 0.0 08/05/20 06:12: APTT 66.6 H* D 08/05/20 06:12: PT 23.6 H, INR 2.11 H I & O for Last 24 hours: Intake & Output 08/02/20 08/03/20 08/04/20 08/05/20 11:59 11:59 11:59 11:59 Intake Total 240 / 240 720 / 720 1711 / 1711 960 / 960 Output Total 2250 / 2250 1550 / 1950 1550 / 1550 Balance 240 / 240 -1530 / -1530 161 / -239 -590 / -590 Weight 178 lb 6.016 oz 176 lb 2 oz 176 lb 5.917 oz 176 lb 8 oz - Constitutional no acute distress Comments: Sitting up in the bed eating breakfast - *Routine Respiratory Exam Present: crackles (Bibasilar) - *Routine Cardiovascular Exam Present: RRR - *Routine Abdominal Exam Present: soft, normoactive bowel sounds, tenderness (Left quadrant), distended - *Routine Extremities Exam Present: full ROM. Absent: edema, calf tenderness - *Routine Neurological Exam Present: alert, oriented X3 Assessment and Plan (1) Splenic vein thrombosis Status: Acute Category: Medical Code(s): I82.890 - Acute embolism and thrombosis of other specified veins (2) Splenic infarct Status: Acute Category: Medical Code(s): D73.5 - Infarction of spleen (3) Abdominal pain Status: Acute Category: Medical Code(s): R10.9 - Unspecified abdominal pain (4) Hypothyroidism Status: Chronic Category: Medical Code(s): E03.9 - Hypothyroidism, uns pecified (5) Hypertension Status: Chronic Category: Medical Code(s): I10 - Essential (primary) hypertension (6) Seizure disorder Status: Acute Category: Medical Code(s): G40.909 - Epilepsy, unspecified, not intractable, without status epilepticus (7) Anxiety Status: Acute Category: Medical Code(s): F41.9 - Anxiety disorder, unspecified (8) Constipation Status: Acute Category: Medical Code(s): K59.00 - Constipation, unspecified - Assessment and plan all Dx Assessment and Plan for all problems:: INR is therapeutic. Can discontinue heparin drip. Continue with Coumadin. Give a Dulcolax suppository today. He needs to ambulate more today.
--- NOTE | 2020-08-05 09:34 | US_ITS ---
PROCEDURE: US ABDOMEN COMPLETE CLINICAL INDICATION: abnormal CT COMPARISON: CT CT ANGIO CHEST from 04/11/[address] ABDOMEN PELVIS W CON from 08/01/2020 FINDINGS: PANCREAS: The pancreas is not visualized due to the presence of overlying bowel gas. LIVER: No focal liver lesions demonstrated. Homogeneous echogenicity. No intrahepatic biliary ductal dilatation evident. There is appropriate direction of blood flow within a non dilated portal vein RIGHT KIDNEY: Unremarkable. Normal size and echogenicity. No hydronephrosis LEFT KIDNEY: There is focal anechoic lesion noted at the superior left kidney measuring up to 7.8 centimeters, demonstrates evidence of internal septations or complex features. GALLBLADDER: There is a focal nonmobile hyperechoic area noted at the gallbladder fundus measuring 1.5 x 1.2 centimeters. There is internal vascularity. The gallbladder otherwise demonstrates normal moderate wall thickness without evidence of pericholecystic fluid. No other evidence of gallstones. AORTA: No evidence of aneurysmal dilatation. SPLEEN: The spleen is enlarged measuring 13 centimeters in craniocaudal dimension. Heterogeneous echogenicity of the spleen is noted, likely secondary to known infarct. Few splenic calcifications are noted. ASCITES: None demonstrated. IMPRESSION: Focal hyperechoic lesion noted at the gallbladder fundus measuring 1.5 x 1.2 centimeters, demonstrates internal vascularity. This may represent a polyp. Neoplasm should be considered. MRCP and MRI of the gallbladder in liver mass protocol without and with contrast is suggested for further evaluation. Enlarged spleen. Heterogeneous echogenicity of the spleen, likely secondary to known infarct. This can be evaluated further evaluated on the MRI of the abdomen. Left renal anechoic lesion measuring 7.8 centimeters, likely simple cyst. Dictated by: Jessi Bustamante 08/05/2020 13:46 Jessi Bustamante in OV 08/05/2020 13:46
[2020-08-05 15:01] VITALS: BP 142/83; PULSE 107; RESP 19; TEMP 36.4; O2SAT 93
--- NOTE | 2020-08-05 15:21 | PC.NURSE ---
No acute changes this shift. Pt remains on room air. C/o abdominal tenderness in his L side, states he doesn't think pain meds are necessary as the pain comes and goes. Pt ambulates in the room independently w/o safety concerns. Voiding w/o difficulty. Pt reports 2 moderate sized brown soft BM's this shift. This nurse did visualize one BM, no blood or s/s of bleeding noted. Pt ambulated w/ standby assistance of staff in hallway. No needs voiced this shift. Currently sitting up in chair. Call ani w/in reach.
[2020-08-05 20:00] VITALS: BP 151/89; PULSE 89; RESP 17; TEMP 36.6; O2SAT 92
--- NOTE | 2020-08-06 03:36 | PC.NURSE ---
no acute changes overnight, pt slept well through the night. lungs CTA, on room air. No c/o pain. IV patent, SL. PT able to ambulate independently in in the room. bowel sounds x4, abd soft and nontender. VSS, call light in reach, no concerns at this time.
[2020-08-06 03:42] VITALS: BP 138/70; PULSE 80; RESP 21; TEMP 36.8; O2SAT 92
[2020-08-06 04:47] VITALS: BMI 22.6
[2020-08-06 07:23] VITALS: BP 141/71; PULSE 92; RESP 18; TEMP 36.7; O2SAT 93
--- NOTE | 2020-08-06 08:21 | HMH.ACPN2 ---
Internal Medicine - PN: Subj *Date: 08/06/20 *Time: 08:21 Interval history: Patient continues to have abdominal discomfort but nothing he cannot tolerate. He remains concerned about his bowels. He does admit to having a bowel movement but states it was not very much. He is eating okay. He did sleep during the night. He thinks he might be going home today. He denies chest pain and shortness of breath. He ambulates in the room without problems. He had an abdominal ultrasound yesterday With the following results: IMPRESSION: Focal hyperechoic lesion noted at the gallbladder fundus measuring 1.5 x 1.2 centimeters, demonstrates internal vascularity. This may represent a polyp. Neoplasm should be considered. MRCP and MRI of the gallbladder in liver mass protocol without and with contrast is suggested for further evaluation. Enlarged spleen. Heterogeneous echogenicity of the spleen, likely secondary to known infarct. This can be evaluated further evaluated on the MRI of the abdomen. Left renal anechoic lesion measuring 7.8 centimeters, likely simple cyst. Exam Vital signs and Labs for Last 24 Hours: Temp Pulse Resp BP Pulse Ox 98.0 F 92 H 18 141/71 H 93 L 08/06/20 07:23 08/06/20 07:23 08/06/20 07:23 08/06/20 07:23 08/06/20 07:23 I & O for Last 24 hours: Intake & Output 08/03/20 08/04/20 08/05/20 08/06/20 11:59 11:59 11:59 11:59 Intake Total 720 / 720 1711 / 1711 960 / 960 600 / 600 Output Total 2250 / 2250 1550 / 1950 2250 / 2250 1025 / 1025 Balance -1530 / -1530 161 / -239 -1290 / -1290 -425 / -425 Weight 176 lb 2 oz 176 lb 5.917 oz 176 lb 8 oz 176 lb - Constitutional no acute distress Comments: Sitting in comfort chair at bedside and appears comfortable - *Routine Respiratory Exam Present: crackles (Few bibasilar) - *Routine Cardiovascular Exam Present: RRR - *Routine Abdominal Exam Present: soft, normoactive bowel sounds, tenderness (Left quadrants), organomegaly (Large spleen palpable) - *Routine Extremities Exam Absent: edema, calf tenderness - *Routine Neurological Exam Present: alert, oriented X3 Assessment and Plan (1) Splenic vein thrombosis Status: Acute Category: Medical Code(s): I82.890 - Acute embolism and thrombosis of other specified veins (2) Splenic infarct Status: Acute Category: Medical Code(s): D73.5 - Infarction of spleen (3) Abdominal pain Status: Acute Category: Medical Code(s): R10.9 - Unspecified abdominal pain (4) Hypothyroidism Status: Chronic Category: Medical Code(s): E03.9 - Hypothyroidism, unspecified (5) Hypertension Status: Chronic Category: Medical Code(s): I10 - Essential (primary) hypertension (6) Seizure disorder Status: Acute Category: Medical Code(s): G40.909 - Epilepsy, unspecified, not intractable, without status epilepticus (7) Anxiety Status: Acute Category: Medical Code(s): F41.9 - Anxiety disorder, unspecified (8) Constipation Status: Acute Category: Medical Code(s): K59.00 - Constipation, unspecified - Assessment and plan all Dx Assessment and Plan for all problems:: Patient to be seen by gastroenterology today. INR is pending this a.m.
[2020-08-06 08:47] LABS: INR 3.05 (0.9-1.1); Prothrombin Time 30.1 seconds (10.1-12.5)
[2020-08-06 12:27] VITALS: BMI 22.6
[2020-08-06 16:00] VITALS: BP 122/86; PULSE 75; RESP 18; TEMP 36.9; O2SAT 94
--- NOTE | 2020-08-06 17:24 | PC.NURSE ---
Pt is alert and oriented x4 and able to voice his needs. He has ambulated in his room independently without complaints. He states he is feeling better today although he still has some abd pain in his LLQ at times. There has been no change from morning assessment. He is currently resting in his bed watching TV. Will continue to monitor.
[2020-08-06 19:31] VITALS: BP 141/79; PULSE 90; RESP 18; TEMP 36.6; O2SAT 94
[2020-08-07 04:00] VITALS: BP 116/69; PULSE 71; RESP 17; TEMP 36.7; O2SAT 92
[2020-08-07 05:00] VITALS: BMI 22.6
--- NOTE | 2020-08-07 05:29 | PC.NURSE ---
Pt resting comfortably with eyes closed. No laborious breathing noted. 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 Patient will have ABD MRI this am with possibility of ERCP. Will continue to monitor for any acute changes.
[2020-08-07 07:03] LABS: INR 2.44 (0.9-1.1)
[2020-08-07 07:33] VITALS: BP 124/74; PULSE 75; RESP 19; TEMP 36.6; O2SAT 96
--- NOTE | 2020-08-07 08:30 | HMH.ACPN2 ---
Internal Medicine - PN: Subj *Date: 08/07/20 *Time: 08:30 Interval history: Patient states he is having abdominal pain in his left lower quadrant that radiates to his groin. He states the pain was very significant last night bad last night and he was unable to sleep. He states he thinks it is due to his bowels as he has not had a bowel movement in 6 days. He denies any other pain and is n.p.o. for an abdominal MRI today. Exam Vital signs and Labs for Last 24 Hours: Temp Pulse Resp BP Pulse Ox 97.9 F 75 19 124/74 96 08/07/20 07:33 08/07/20 07:33 08/07/20 07:33 08/07/20 07:33 08/07/20 07:33 Laboratory Results - last 24 hr 08/06/20 07:32: PT 30.1 H, INR 3.05 H 08/07/20 05:55: PT 27.0 H, INR 2.44 H I & O for Last 24 hours: Intake & Output 08/04/20 08/05/20 08/06/20 08/07/20 11:59 11:59 11:59 11:59 Intake Total 1711 / 1711 960 / 960 600 / 600 480 / 480 Output Total 1550 / 1950 2250 / 2250 1250 / 1250 2325 / 2325 Balance 161 / -239 -1290 / -1290 -650 / -650 -1845 / -1845 Weight 176 lb 5.917 oz 176 lb 8 oz 176 lb 176 lb - Constitutional no acute distress - *Routine Respiratory Exam Present: rales (faint bibasilar) - *Routine Cardiovascular Exam Present: RRR - *Routine Abdominal Exam Present: soft, normoactive bowel sounds, tenderness (LLQ) - *Routine Extremities Exam Absent: cyanosis, clubbing, edema - *Routine Skin Exam Present: warm. Absent: rash - *Routine Neurological Exam Present: alert, oriented X3 Assessment and Plan (1) Splenic vein thrombosis Status: Acute Category: Medical Code(s): I82.890 - Acute embolism and thrombosis of other specified veins (2) Splenic infarct Status: Acute Category: Medical Code(s): D73.5 - Infarction of spleen (3) Abdominal pain Status: Acute Category: Medical Code(s): R10.9 - Unspecified abdominal pain (4) Hypothyroidism Status: Chronic Category: Medical Code(s): E03.9 - Hypothyroidism, unspecified (5) Hypertension Status: Chronic Category: Medical Code(s): I10 - Essential (primary) hypertension (6) Seizure disorder Status: Acute Category: Medical Code(s): G40.909 - Epilepsy, unspecified, not intractable, without status epilepticus (7) Anxiety Status: Acute Category: Medical Code(s): F41.9 - Anxiety disorder, unspecified (8) Constipation Status: Acute Category: Medical Code(s): K59.00 - Constipation, unspecified - Assessment and plan all Dx Assessment and Plan for all problems:: Patient is n.p.o. this morning for an abdominal MRI. Will start on stool softeners and MiraLAX has already been ordered for his constipation which is likely the etiology of his left lower quadrant pain.
--- NOTE | 2020-08-07 09:40 | PC.NURSE ---
Pt alert to person place and time.Fine crackles to left lower base. S1,S2. BS x4,abd soft. RR even and unlabored. Remains on RA. CB in reach. Pt walks ad catarino in room and stated he had a bm this am. Pt does c/o of mild pain in LLQ into groin. PO meds given per jul. Mx continues. VSS.
--- NOTE | 2020-08-07 10:28 | MR_ITS ---
PROCEDURE: MR ABDOMEN WO/W CON CLINICAL INDICATION: ABNORMAL CT COMPARISON: CT CT ABDOMEN PELVIS W CON from 08/01/2020 TECHNIQUE: Routine multiplanar multi echo sequences are performed without gadolinium enhancement. FINDINGS: Slightly motion limited study. There is heterogeneous T2 signal intensity is noted at the fundus of the gallbladder measuring approximately 1.3 x 1 centimeter. Post-contrast images demonstrate heterogeneous enhancement of the lesion at the fundus of the gallbladder. No significant stranding or focal lesions noted in the gallbladder fossa. No evidence of lymphadenopathy. Rest of the gallbladder demonstrates no evidence of abnormal enhancement. The findings are suspicious for sessile polyp versus neoplastic process. The common bile duct is normal in caliber. No intra or extrahepatic biliary dilation. The liver demonstrates homogeneous signal intensity without evidence of focal lesions. The pancreas appears unremarkable without evidence of focal lesions. No abnormal hypoenhancing lesions are noted. The pancreatic duct is not dilated. There is complex non opacification of the splenic vein on the delayed phase images consistent with known splenic vein thrombosis. Multiple focal areas of nonenhancing areas noted in the spleen with the T1 hyperintensity, consists stent with infarcts. No abnormal enhancement is noted. Bilateral adrenal glands are unremarkable. Multiple T2 hyperintense lesions are noted in the kidneys bilaterally, largest in the superior pole of the left kidney measuring 7.6 times 6.8 centimeters, demonstrates no evidence of enhancement, represent cysts. The visualized large and small bowel loops demonstrate no focal wall thickening, obstruction or adjacent inflammatory changes. The visualized lung bases are clear. IMPRESSION: Focal enhancing heterogeneous signal intensity lesion at the fundus of the gallbladder measuring 1.3 x 1 centimeter, raises the concern for sessile polyp versus mass lesion. Findings are consistent with splenic vein thrombosis, as noted on the prior CT. Multiple focal areas of wedge-shaped hypoenhancement noted on multiphasic images in the spleen, consistent with known infarcts. Bilateral renal cysts. Dictated by: Jessi Bustamante 08/07/2020 14:57 Jessi Bustamante in OV 08/07/2020 14:57
--- NOTE | 2020-08-07 11:07 | PC.NURSE ---
Pt off floor to MRI at this time.
--- NOTE | 2020-08-07 14:14 | PC.NURSE ---
Pt up to chair at this time with NAD. CB in reach. Pt denies pain at this time. Pt has had bm, but did go on and give stool softener per mar. Awaiting MRI results currently. Have given report to Diego Naidu RN
[2020-08-07 16:00] VITALS: BP 128/100; PULSE 80; RESP 16; TEMP 36.4; O2SAT 92
[2020-08-07 20:00] VITALS: BP 122/77; PULSE 80; PULSE 81; RESP 16; RESP 17; TEMP 36.6; O2SAT 92; O2SAT 94
[2020-08-08] VITALS: O2SAT 92
[2020-08-08 04:00] VITALS: BP 126/66; PULSE 80; RESP 17; TEMP 36.6; O2SAT 94
--- NOTE | 2020-08-08 04:46 | PC.NURSE ---
Spoke with Dr. Tran at 20:19 r/t NPO status; having been NPO since midnight prior evening for testing today. Dr. Tran gave v.o. for patient to have food until midnight on 08/07/20 just in case it is warranted for 08/08/20. Patient concerned and inquiring of test results and advised that physician will discuss with him in the AM. Patient verbalized understanding. Shows no s/s of acute distress noted at this time. Call light within reach, bed at lowest level for safety. Will continue to monitor.
[2020-08-08 05:00] VITALS: BMI 22.5
[2020-08-08 06:40] LABS: INR 2.61 (0.9-1.1); Prothrombin Time 28.7 seconds (10.1-12.5)
[2020-08-08 07:32] VITALS: BP 121/74; PULSE 74; RESP 18; TEMP 36.8; O2SAT 93
--- NOTE | 2020-08-08 08:17 | HMH.ACPN2 ---
Internal Medicine - PN: Subj *Date: 08/08/20 *Time: 08:17 Interval history: Patient states he slept very well last night. He is still having abdominal pain on his entire left side. He was able to have a bowel movement yesterday. Exam Vital signs and Labs for Last 24 Hours: Temp Pulse Resp BP Pulse Ox 98.2 F 74 18 121/74 93 L 08/08/20 07:32 08/08/20 07:32 08/08/20 07:32 08/08/20 07:32 08/08/20 07:32 Laboratory Results - last 24 hr 08/01/20 15:13: Factor V Leiden Interp Comment 08/08/20 06:14: PT 28.7 H, INR 2.61 H I & O for Last 24 hours: Intake & Output 08/05/20 08/06/20 08/07/20 08/08/20 11:59 11:59 11:59 11:59 Intake Total 960 / 960 600 / 600 480 / 480 Output Total 2250 / 2250 1250 / 1250 2575 / 2575 650 / 650 Balance -1290 / -1290 -650 / -650 -2095 / -2095 -650 / -650 Weight 176 lb 8 oz 176 lb 176 lb 175 lb 8 oz Radiology Reports for the Last 24 Hours: Abdominal MRI Focal enhancing heterogeneous signal intensity lesion at the fundus of the gallbladder measuring 1.3 x 1 centimeter, raises the concern for sessile polyp versus mass lesion. Findings are consistent with splenic vein thrombosis, as noted on the prior CT. Multiple focal areas of wedge-shaped hypoenhancement noted on multiphasic images in the spleen, consistent with known infarcts. Bilateral renal cysts. - Constitutional no acute distress - *Routine Respiratory Exam Present: CTA bilaterally - *Routine Cardiovascular Exam Present: RRR - *Routine Abdominal Exam Present: soft, normoactive bowel sounds, tenderness (LUQ and LLQ) - *Routine Extremities Exam Absent: cyanosis, clubbing, edema - *Routine Skin Exam Present: warm. Absent: rash - *Routine Neurological Exam Present: alert, oriented X3 Assessment and Plan (1) Splenic vein thrombosis Status: Acute Category: Medical Code(s): I82.890 - Acute embolism and thrombosis of other specified veins (2) Splenic infarct Status: Acute Category: Medical Code(s): D73.5 - Infarction of spleen (3) Abdominal pain Status: Acute Category: Medical Code(s): R10.9 - Unspecified abdominal pain (4) Hypothyroidism Status: Chronic Category: Medical Code(s): E03.9 - Hypothyroidism, unspecified (5) Hypertension Status: Chronic Category: Medical Code(s): I10 - Essential (primary) hypertension (6) Seizure disorder Status: Acute Category: Medical Code(s): G40.909 - Epilepsy, unspecified, not intractable, without status epilepticus (7) Anxiety Status: Acute Category: Medical Code(s): F41.9 - Anxiety disorder, unspecified (8) Constipation Status: Acute Category: Medical Code(s): K59.00 - Constipation, unspecified (9) Gallbladder mass Status: Acute Category: Medical Code(s): K82.8 - Other specified diseases of gallbladder - Assessment and plan all Dx Assessment and Plan for all problems:: Dr. Quispe is not available for consult this week. Abdominal MRI showed a lesion at the fundus of the gallbladder raising concern for a polyp versus a mass. Findings were also consistent with splenic vein thrombosis. Will discuss further care with Dr. Tidwell. Will start the patient on a diet. He can likely discharge and f/u outpatient with Jose Enrique.
[2020-08-08 08:36] LABS: Microscopic, Urine URINE MICROSCOPIC (MICROSCOPIC)
[2020-08-08 08:39] LABS: Appearance,Urine SL CLOUDY (Clear); Bilirubin,Urine Negative (Negative); Blood, Urine Negative (Negative); Color,Urine YELLOW (Yellow); Glucose,Urine (UA) Negative (Negative); Ketones,Urine Negative (Negative); Leukocyte Esterase,Urine Negative (Negative); Nitrate,Urine POSITIVE (Negative); Protein,Urine Negative (Negative); Specific Gravity, Urine 1.015 (1.005-1.030)
[2020-08-08 09:18] LABS: Bacteria,Urine 4+ /lpf; Triple Phosphate Crystal,Urine 2+ /lpf
--- NOTE | 2020-08-08 09:42 | HMH.PHAINT ---
DISCHARGE COUNSELING COMPLETED ON PATIENT. NEW PRESCRIPTIONS FOR MIRALAX, DOCUSATE, AND WARFARIN. NEW PRESCRIPTIONS SENT TO [facility] IN [place]. EDUCATION PROVIDED TO PATIENT FOR WARFARIN. PATIENT IS TO CONTINUE ALL OTHER HOME MEDICATIONS. PATIENT VERBALIZED UNDERSTANDING AND HAD NO QUESTIONS AT THIS TIME. -CHAGO SINGLETON, LINOD
--- NOTE | 2020-08-08 13:09 | HMH.DCSUM ---
General - General Admission date:: 08/01/20 Discharge date: 08/08/20 HPI HPI: This is a 74-year-old male with a past medical history significant for hypertension, hyperlipidemia, anxiety, hernia repair with mesh in the remote past who presents to the emergency department for evaluation of umbilical abdominal pain that radiates to the left lower quadrant and has been intermittent over the last 3 weeks. No fevers or vomiting though he has had nausea. Decreased urination, but no dysuria. Was constipated initially, but now has resolved. Had a colonoscopy within the last several weeks that was unremarkable. Just saw Dr. Gomez today, with no acute recommendations, however patient daughter still concerned so present here for evaluation. There are no exacerbating or alleviating factors. Patient with CT scan that shows splenic vein thrombophlebitis with associated splenic infarct, also incidentally some thickening of the gallbladder wall focally. This can be further evaluated with an ultrasound not emergently. No signs of biliary obstruction. Lipase within normal limits. I discussed this case with Dr. Sharma, on-call for general surgery who recommended vascular consult which we do not have here. I have called vascular surgery at [facility], Dr. Tolentino, who did not recommend any vascular intervention: He did recommend evaluation by GI for consideration of cirrhosis or other GI anomalies, a heparin drip with ultimate transition to oral anticoagulants, hypercoagulable work-up and general surgery evaluation to see if they might want to do a splenectomy. I discussed this case with Dr. Tran, on-call for Dr. Tidwell and patient will be admitted for further management. I also let Dr. Gomez know about the patient's condition. Patient remains comfortable here, with a white blood cell count of 13,000, no fever. He does have a concentrated urine, was given fluids for this. (above as per ER physician) Hospital Course Hospital Course: The patient was admitted and started on a heparin drip. Labs for hypercoagulation condition were ordered. The patient stated his daughter had from a thromboembolic event. A PPI as well as Tylenol were added. Patient did feel a little bit better by 08/02/2020 and was able to eat. He was started on Coumadin. He continued to have some pain in his abdomen. His bowels were not moving. MiraLAX was added for constipation. His INR became therapeutic and his heparin drip was discontinued. He was given a Dulcolax suppository due to continued constipation. He had a small bowel movement but continued with some left-sided abdominal pain. He had an abdominal ultrasound showing a hyperechoic lesion at the gallbladder fundus. Radiology recommended an MRI of the gallbladder. The ultrasound also showed an enlarged spleen. The patient had his abdominal MRI which showed a lesion at the fundus of the gallbladder raising concern for a polyp versus a mass. It also showed splenic vein thrombosis and bilateral renal cysts. He did continue to complain of constipation and was started on stool softeners as well as the MiraLAX. GI was consulted to see the patient, but Dr. Quispe was not available. The patient was feeling better and wanted to be discharged home. He was stable to be discharged as he was therapeutic on 3 mg of warfarin daily and he will follow-up with Dr. Quispe as well as with Dr. Tidwell. Objective Vital signs: Temp Pulse Resp BP Pulse Ox 98.2 F 74 18 121/74 93 L 08/08/20 07:32 08/08/20 07:32 08/08/20 07:32 08/08/20 07:32 08/08/20 07:32 Narrative: - Constitutional no acute distress - *Routine HEENT Exam Head: Present: normocephalic Eye: Present: EOMI, PERRL ENT: Present: mucous membranes dry - *Routine Neck Exam Present: supple. Absent: lymphadenopathy - *Routine Respiratory Exam Present: CTA bilaterally - *Routine Cardiovascular Exam Present: RRR
== END 2020-08-08 11:28 | disposition home or self-care (01) | DRG 816 ==
LOC: ER 15:02 → 2ND 16:59
PROVIDERS: Nurse Practitioner Family; Admitting Provider Family Medicine; Emergency Provider Emergency Medicine; PCP Family Medicine; Visit Provider Family Medicine
DX: D73.5 Infarction of spleen (principal); I80.8 Phlebitis and thrombophlebitis of other sites; F41.9 Anxiety disorder, unspecified; E78.5 Hyperlipidemia, unspecified; I10 Essential (primary) hypertension; E03.9 Hypothyroidism, unspecified; K59.00 Constipation, unspecified; K82.8 Other specified diseases of gallbladder
CPT/HCPCS: 36415; 74177; 74183; 76376; 76700; 80048; 80053; 81001; 81241; 82565; 83605; 83690; 84520; 85025; 85300; 85301; 85302; 85306; 85610; 85730; 86147; 87086; 87088; 87186; 96365; 96375; 96376; 99284; A9576; J2405; Q9967; U0003

== ENCOUNTER → 2020-10-04 08:59 | Outpatient (CLI) | payer MEDICARE, OTHER, SELFPAY ==
[2020-10-04 09:28] LABS: Prothrombin Time 17.8 seconds (10.1-12.5)
[2020-10-04 09:29] LABS: Basophils # 0.1 K/mm3 (0-0.2); Basophils % 0.7 % (0.1-2.0); Eosinophils # 0.3 K/mm3 (0.0-0.4); Eosinophils % 4.1 % (0.1-12.0); Lymphocytes # 2.9 K/mm3 (0.7-4.5); Lymphocytes % 41.2 % (10-50); Mean Corpuscular HGB Conc 37.2 g/dL (31.8-35.4); Mean Corpuscular Hemoglobin 34.2 pg (27.0-31.2); Mean Corpuscular Volume 91.8 fl (80-94); Mean Platelet Volume 7.3 fl (7.4-10.4); Monocytes # 0.6 K/mm3 (0.1-1.0); Monocytes % 7.8 % (1.7-9.3); Neutrophils # 3.3 K/mm3 (1.8-7.8); Neutrophils % 46.2 % (37.0-80.0); Platelet Count 156 K/mm3 (142-424); Red Blood Count 4.68 M/mm3 (4.60-6.20); Red Cell Distribution Width 14.8 % (11.5-17.5); White Blood Count 7.1 K/mm3 (4.8-10.8)
[2020-10-04 09:34] LABS: INR 1.56 (0.9-1.1)
[2020-10-04 09:43] LABS: Chloride 107 mmol/L (98-107); Potassium 4.6 mmoL/L (3.5-5.1); Sodium 142 mmol/L (136-145)
[2020-10-04 09:46] LABS: Alanine Aminotransferase 31 U/L (12-78); Albumin Level 4.8 g/dl (3.5-5.0); Albumin/Globulin Ratio 1.5 (1.1-1.8); Alkaline Phosphatase 71 U/L (38-126); Anion Gap 15.6 mEq/L (5-15); Aspartate Amino Transferase 33 U/L (17-59); Bilirubin,Total 0.5 mg/dl (0.2-1.3); Blood Urea Nitrogen 24 mg/dl (9-20); Calcium 10.2 mg/dl (8.4-10.2); Carbon Dioxide 24 mmol/L (22.0-30.0); Estimated Glomerular Filt Rate 54 ml/min (>60); GFR (African American) 65 ML/MIN (>60); Globulin 3.1 g/dL (1.3-3.2); Glucose 97 mg/dl (74-100); Total Protein,Serum 7.9 g/dl (6.3-8.2)
== END ==
PROVIDERS: Visit Provider Surgery
DX: R93.2 Abnormal findings on diagnostic imaging of liver and biliary tract (principal); R07.9 Chest pain, unspecified; Z01.812 Encounter for preprocedural laboratory examination; Z20.822 Contact with and (suspected) exposure to COVID-19
CPT/HCPCS: 80053; 85025; 85610; U0003

== ENCOUNTER 2020-10-07 07:16 | Day surgery (SDC) | payer MEDICARE, OTHER, SELFPAY ==
[2020-09-30 10:48] VITALS: BMI 23.7
[2020-10-07] VITALS (9 sets, daily range): BP systolic 123–161; BP diastolic 51–92; PULSE 47–86; RESP 16–18; TEMP 36.4–36.9; O2SAT 93–98
[2020-10-07 08:33] LABS: Prothrombin Time 12.4 seconds (10.1-12.5)
[2020-10-07 08:49] LABS: INR 1.06 (0.9-1.1)
--- NOTE | 2020-10-07 09:28 | P.PN_ITS ---
[facility] Anesthesia Checklist - Patient Identification Patient Identification: Arm Band - Structural Data Admitted From: Home Planned Operative Procedure/s: Lap. cholecystectomy Consent for Planned Operative Procedure(s) Verified: Yes - NPO Status Verified Time NPO: 00:00 - Additional verifications Anesthesia Reactions: No Hx Blood Transfusions: No Blood Transfusion Reaction: No - Airway Assessment C-Spine Mobility Assessed: Yes TMJ Mobility Assessed: Yes Dentition: Edentulous - Neurological Assessment Level of Consciousness: Awake Hx Seizures: Yes (Possibly. On sz medications) Numbness or tingling in extremities: No - Anesthesia Plan Anesthesia Risk discussed: Yes Anesthesia Plan: Verified ASA Class: III Anesthesia Type: General [facility] History I have reviewed the patient's past medical history: Yes 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: Reports:: Anxiety, Heart Murmur, Hyperlipidemia, Hypertension, Seizures, Transient Ischemic Attacks (TIA) (x 3) Denies:: Cancer, Diabetes Mellitus Type 1, Diabetes Mellitus Type 2, Internal Pacemaker, Lung Disease, MRSA *Have you ever received a pneumonia vaccine?: Yes *Have you received a flu vaccine this season?: No Other 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: Reports: Hypothyroidism. Denies: Blood Transfusion Reaction Anesthesia experience/problems:: None Other Surgeries: Yes: Colonoscopy, EGD, Hernia Repair, Other. No: Pacemaker Amputation: No Fractures: Yes - *Social History Last grade of school completed: 9th or 10th Smoking Status: Never smoker Tobacco Type: cigarettes #Yrs smoked (if former smoker): 25 Alcohol Intake: never Alcohol Intake Frequency:: holidays/special occasions only Substance Use Type: denies use, other *Occupational Status:: retired Housing: house Household Members: spouse *Travel in the last 8 weeks: None - Psychiatric History Pschychiatric History:: Reports:: Anxiety Family Hx:: Stroke
--- NOTE | 2020-10-07 11:10 | P.PN_ITS ---
[facility] Anesthesia Record Part I Intake, IV Amount: 1,200 Estimated blood loss (mL): 10 Urine output (mL): 0 Blood Pressure: 123/51 SaO2: 96 Pulse Rate: 86 Respiratory Rate: 16 Temperature: 98.2 F Patient is:: Drowsy, Stable Stable to PACU at:: 11:10
--- NOTE | 2020-10-07 11:10 | HMH.OPNOTE ---
Date of procedure: 10/07/20 Pre-op Diagnosis:: Gallbladder disease Post-op Diagnosis:: Same Procedure performed:: Laparoscopic cholecystectomy Surgeon:: Geoffrey Gomez MD POOL ATTENDANT:: Marvel Mariee Anesthesia: MARC Estimated blood loss (mL): 20 Clinical Note:: Patient is a 74-year-old male from [place] who is an extremely poor historian. I had seen him in July and performed upper endoscopy and colonoscopy for abdominal pain. When he presented to the office for follow-up at that time he was having significantly increasing abdominal pain and he therefore presented to the emergency department where he was seen and evaluated. He was found to have on CT scan findings of splenic vein thrombosis with some splenic infarcts. He was admitted for inpatient management and started on warfarin. He has seen gastroenterology. He has had now some more right-sided pain. He underwent gallbladder ultrasound which revealed findings of a 15 mm lesion in the fundus of the gallbladder. It was felt this could be polyp versus neoplasm. He underwent MRI which confirmed. He was sent for surgical consultation. Patient has abnormality in gallbladder on ultrasound with right upper quadrant pain. This could be a neoplasm versus benign polyp or other lesion. I do feel that cholecystectomy would be warranted. Plan for laparoscopic possibly open cholecystectomy. If this does return as a gallbladder carcinoma, pending the staging, could require additional surgery such as lymphadenectomy and liver resection which would require referral to surgical oncology. Also explained to the patient that cholecystectomy may not alleviate all of his abdominal symptomatology. Operative findings:: Somewhat distended gallbladder with minimal omental adhesions. There was a relatively focal firm area at the apex of the gallbladder area clearly separate from the liver however. Liver was somewhat nodular. Operative note:: Patient was taken to the operating room. He was given preoperative intravenous antibiotics. In the operating room he was placed in a supine position. General anesthesia was induced via endotracheal tube. Abdomen was prepped and draped in the standard surgical fashion. Subumbilical skin incision was made and while performing abdominal wall lift Veress needle was inserted. CO2 pneumoperitoneum was achieved to 15 mmHg. 11 mm optical trocar was inserted at the umbilicus. Intraperitoneal contents were visualized. He was positioned in reverse Trendelenburg left side down. A couple of 5 mm trochars were inserted in the right upper abdomen. 10 mm trocar was inserted in the epigastrium. Gallbladder was identified and grasped retracted anteriorly and superiorly over the dome of the liver. Gallbladder was somewhat distended with some minimal omental adhesions. There was a firm relatively focal lesion at the apex of the gallbladder clearly away from the liver. Gallbladder was grasped retracted anteriorly and superiorly over the dome of the liver. Infundibulum of the gallbladder was retracted anterolaterally. Blunt dissection was carried out the neck of the gallbladder bluntly incising the visceral peritoneum. Dissection was carried out ultimately isolating the cystic duct and cystic artery. Cystic duct was multiply clipped and sharply divided. Dissection was carried out and the cystic artery was identified and carefully coagulated with TRICIA ultrasonic harmonic beckie and divided. Gallbladder was dissected free from the liver in a retrograde fashion using TRICIA ultrasonic harmonic beckie. Gallbladder was placed within an Endo Catch retrieval device and removed from the peritoneal cavity via the umbilical trocar site. Use of electrocautery was used on the gallbladder fossa to ensure hemostasis. Irrigation and suctioning was carried out until clear. Trochars were removed as CO2 pneumoperitoneum was evacuated. Fascia at the umbilicus was closed with a couple of interrupted 0 Vicryl
--- NOTE | 2020-10-07 11:39 | PC.NURSE ---
[id number]-detailed report called to Raisa,RN [id number]-pt transported to post op via stretcher w/cristofer rails up, vss, pt stable upon discharge from pacu
--- NOTE | 2020-10-07 11:44 | HMH.ANESII ---
[facility] Anesthesia Record Part II Discharge Time: 11:40 Destination: Surgical Day Care (OP Surgery) PACU nurse assessment reviewed?: Yes Patient Condition:: Good Anesthesia Complications:: None Swallowing reflex intact?: Yes Cyanosis?: No Blood Pressure: 140/82 Pulse Rate: 60 Temperature: 97.6 F Mental Status: Alert & Oriented Pain level:: 0 Nausea and/or vomitting:: None Intake, IV Amount: 0
== END 2020-10-07 12:15 | disposition home or self-care (01) ==
LOC: OR 07:18
PROVIDERS: PCP Family Medicine; Visit Provider Surgery
PROC: 0FT44ZZ Resection of Gallbladder, Percutaneous Endoscopic Approach (ICD-10-PCS; CPT 47562; principal; 2020-10-07 09:30)
DX: K82.9 Disease of gallbladder, unspecified (principal); F41.9 Anxiety disorder, unspecified; E78.5 Hyperlipidemia, unspecified; I10 Essential (primary) hypertension; R01.1 Cardiac murmur, unspecified; R56.9 Unspecified convulsions; E03.9 Hypothyroidism, unspecified; Z79.899 Other long term (current) drug therapy; Z79.01 Long term (current) use of anticoagulants; Z82.3 Family history of stroke; Z82.49 Family history of ischemic heart disease and other diseases of the circulatory system; Z83.438 Family history of other disorder of lipoprotein metabolism and other lipidemia
CPT/HCPCS: 47562; 36415; 85610; 88304; 96374; J2405; J2710

== ENCOUNTER 2021-06-19 07:59 | Emergency (ER) | payer MEDICARE, OTHER, SELFPAY ==
[2021-06-19 08:00] VITALS: BP 165/92; PULSE 69; RESP 20; TEMP 36.5; O2SAT 95; BMI 23.2
--- NOTE | 2021-06-19 08:07 | ECG_ITS ---
APPROVED REPORT Exam: Resting ECG HR:64 bpm ECG Measurements Heart Rate 64 AXES NE 167 P 45 QRSd 89 QRS 47 QT 391 T 55 QTc 401 Conclusion SINUS RHYTHM NONSPECIFIC T-WAVE ABNORMALITY BORDERLINE ECG UNCONFIRMED REPORT Electronically signed by : Adrian Modi MD 06/20/2021 07:37:13
--- NOTE | 2021-06-19 08:24 | XR_ITS ---
FINAL REPORT CLINICAL HISTORY: Dyspnea COMPARISON: April 11, 2019 FINDINGS: Two views of the chest were obtained. The heart size and pulmonary vascularity are within normal limits. The mediastinum is normal. There is mild right lung base atelectasis or pneumonia. There is overall improved aeration of the lung bases since the prior examination. There is no pneumothorax. The bony thorax is intact. IMPRESSION: Mild right lung base atelectasis or pneumonia. Reviewed, Interpreted and Dictated by Geoffrey Bentley III, MD Transcribed by Lesa Carlos Authenticated by Geoffrey Bentley III, MD on 06/19/2021 09:35:[address] [facility]
--- NOTE | 2021-06-19 08:25 | HMH.EDGENADL ---
ED Disposition Clinical Impression: Musculoskeletal chest pain Hematuria Qualifiers: Hematuria type: gross Qualified Code(s): R31.0 - Gross hematuria Disposition: Home, Self-Care Condition on Discharge: Good Additional Instructions: Please continue to closely monitor your symptoms at home especially for development of fever, productive cough and worsening shortness of breath. If any of these symptoms arise or additional concerns arise, please return to the emergency department or see your primary care physician for reassessment. Additionally, please follow-up with your primary care physician regarding blood in your urine. This could be a sign of a serious medical condition and will need further work-up. Continue supportive care at home including Tylenol, ibuprofen. You may take a muscle relaxer if your symptoms are not relieved with ibuprofen or Tylenol. Referrals: Sherry Tidwell MD [Primary Care Provider] - - Critical Care Critical Care Time: No Attestation: On 06/19/21, the high probability of a clinically significant, sudden or life threatening deterioration of the following system(s) required my full and direct attention, intervention and personal management. The time I documented below is in addition to time spent performing reported procedures but includes the following listed in this critical care notation. Medical Decision Making - Medical Records Medical records reviewed: Yes: I reviewed the patient's medical records. - Ildefonso Inquiry Pt receiving controlled substance: No Vital Signs: 06/19/21 08:00 06/19/21 08:30 06/19/21 09:00 Temperature 97.7 F Temperature Source Oral Pulse Rate 58 L 56 L Pulse Rate [Right] 69 Respiratory Rate 20 17 Blood Pressure 128/74 118/74 Blood Pressure [Right Arm] 165/92 H Blood Pressure Mean [Right Arm] 116 Blood Pressure Source [Right Arm] Automatic Cuff 02 Sat by Pulse Oximetry 95 96 94 L Oxygen Delivery Method Room Air Room Air Room Air 06/19/21 09:30 Temperature Temperature Source Pulse Rate 52 L Pulse Rate [Right] Respiratory Rate 16 Blood Pressure 158/87 H Blood Pressure [Right Arm] Blood Pressure Mean [Right Arm] Blood Pressure Source [Right Arm] 02 Sat by Pulse Oximetry 95 Oxygen Delivery Method Room Air - Lab Data Lab results reviewed: Yes: I reviewed the patient's lab results. Lab Results 06/19/21 08:09: WBC 9.2, RBC 5.27, Hgb 17.2, Hct 50.7, MCV 96.1 H, MCH 32.7 H, MCHC 34.0, RDW 13.9, Plt Count 216, MPV 8.7, Neut % (Auto) 54.1, Lymph % (Auto) 33.2, [place] % (Auto) 8.8, Eos % (Auto) 3.3, Baso % (Auto) 0.6, Neut # (Auto) 5.0, Lymph # (Auto) 3.0, Wayne # (Auto) 0.8, Eos # (Auto) 0.3, Baso # (Auto) 0.1 06/19/21 08:09: D-Dimer 0.75 H 06/19/21 08:09: Sodium 136, Potassium 4.6, Chloride 104, Carbon Dioxide 24, Anion Gap 12.6, BUN 21 H, Creatinine 1.20, Estimated Creat Clear 60, Estimated GFR 59, Est GFR ( Amer) 71, Glucose 113 H, Calcium 9.5, Total Bilirubin 1.2, AST 34, ALT 39, Alkaline Phosphatase 65, Troponin I < 0.01, Total Protein 8.7 H, Albumin 5.0, Globulin 3.7 H, Albumin/Globulin Ratio 1.4 06/19/21 09:22: Urine Color Yellow, Urine Appearance Sl cloudy, Urine pH 6.0, Ur Specific [place] 1.025, Urine Protein Trace, Urine Glucose (UA) Negative, Urine Ketones Trace, Urine Blood 3+, Urine Nitrate Negative, Urine Bilirubin 1+ A, Urine Urobilinogen 0.2, Ur Leukocyte Esterase 2+ A, Urine RBC 5-10, Urine WBC Occasional, Ur Squamous Epith Cells None, Amorphous Sediment Trace, Urine Bacteria 1+ Result diagrams: 06/19/21 08:09 06/19/21 08:09 Orders (Tests/Meds): ED MEDICATIONS Generic Name Dose Route Start Last Admin Trade Name Freq PRN Reason Stop Dose Admin Methocarbamol 750 mg 06/19/21 21:00 06/19/21 09:45 Methocarbamol 500mg Tablet PO 07/19/21 20:59 750 mg BID TARA Administration Discontinued Medications Generic Name Dose Route Start Last Admin Trade Name Freq PRN Reason Stop Dose Admin Acetamin
[2021-06-19 08:30] VITALS: BP 128/74; PULSE 58; O2SAT 96
--- NOTE | 2021-06-19 08:33 | PC.NURSE ---
Pt gone to rad for xray.
--- NOTE | 2021-06-19 08:39 | PC.NURSE ---
Pt back from rad.
[2021-06-19 08:42] LABS: Basophils # 0.1 K/mm3 (0-0.2); Basophils % 0.6 % (0.1-2.0); Eosinophils # 0.3 K/mm3 (0.0-0.4); Eosinophils % 3.3 % (0.1-12.0); Hematocrit 50.7 % (42.0-52.0); Hemoglobin 17.2 g/dL (14.1-18.0); Lymphocytes % 33.2 % (10-50); Mean Corpuscular Hemoglobin 32.7 pg (27.0-31.2); Mean Corpuscular Volume 96.1 fl (80-94); Mean Platelet Volume 8.7 fl (7.4-10.4); Monocytes # 0.8 K/mm3 (0.1-1.0); Monocytes % 8.8 % (1.7-9.3); Neutrophils % 54.1 % (37.0-80.0); Platelet Count 216 K/mm3 (142-424); Red Blood Count 5.27 M/mm3 (4.60-6.20); Red Cell Distribution Width 13.9 % (11.5-17.5); White Blood Count 9.2 K/mm3 (4.8-10.8)
[2021-06-19 08:43] LABS: Chloride 104 mmol/L (98-107); Potassium 4.6 mmoL/L (3.5-5.1); Sodium 136 mmol/L (136-145)
[2021-06-19 08:46] LABS: Alanine Aminotransferase 39 U/L (12-78); Albumin/Globulin Ratio 1.4 (1.1-1.8); Alkaline Phosphatase 65 U/L (38-126); Anion Gap 12.6 mEq/L (5-15); Aspartate Amino Transferase 34 U/L (17-59); Bilirubin,Total 1.2 mg/dl (0.2-1.3); Blood Urea Nitrogen 21 mg/dl (9-20); Calcium 9.5 mg/dl (8.4-10.2); Carbon Dioxide 24 mmol/L (22.0-30.0); Creatinine Clearance Estimated 60 mL/min (50-200); Estimated Glomerular Filt Rate 59 ml/min (>60); GFR (African American) 71 ML/MIN (>60); Globulin 3.7 g/dL (1.3-3.2); Glucose 113 mg/dl (74-100); Total Protein,Serum 8.7 g/dl (6.3-8.2)
[2021-06-19 08:52] LABS: D-Dimer 0.75 ug/mL (0.0-0.5)
[2021-06-19 09:00] VITALS: BP 118/74; PULSE 56; RESP 17; O2SAT 94
[2021-06-19 09:02] LABS: Troponin I < 0.01 ng/ml (0.00-0.034)
[2021-06-19 09:29] LABS: Microscopic, Urine URINE MICROSCOPIC (MICROSCOPIC)
[2021-06-19 09:30] VITALS: BP 158/87; PULSE 52; RESP 16; O2SAT 95
[2021-06-19 09:36] LABS: Appearance,Urine SL CLOUDY (Clear); Blood, Urine 3+ (Negative); Color,Urine YELLOW (Yellow); Glucose,Urine (UA) Negative (Negative); Ketones,Urine TRACE (Negative); Leukocyte Esterase,Urine 2+ (Negative); Nitrate,Urine Negative (Negative); Protein,Urine TRACE (Negative); Specific Gravity, Urine 1.025 (1.005-1.030); Urobilinogen,Urine 0.2 EU/dl (0.2)
[2021-06-19 09:52] LABS: Bilirubin,Urine 1+ (Negative)
[2021-06-19 09:53] LABS: Amorphous Sediment,Urine Trace /lpf; Bacteria,Urine 1+ /lpf; WBC,Urine Occasional #/hpf (0-3)
[2021-06-19 10:25] VITALS: BP 135/75; PULSE 87; RESP 16; TEMP 36.9; O2SAT 95
== END 2021-06-19 10:26 | disposition home or self-care (01) ==
PROVIDERS: Emergency Provider Emergency Medicine; PCP Family Medicine
DX: R07.89 Other chest pain (principal); R31.0 Gross hematuria; E78.5 Hyperlipidemia, unspecified; R56.9 Unspecified convulsions; Z86.73 Personal history of transient ischemic attack (TIA), and cerebral infarction without residual deficits; E03.9 Hypothyroidism, unspecified
CPT/HCPCS: 71046; 80053; 81001; 84484; 85025; 85378; 87086; 93005; 99282

== ENCOUNTER 2021-07-12 13:20 | Emergency (ER) | payer MEDICARE, OTHER, SELFPAY ==
[2021-07-12 13:29] VITALS: BP 127/79; PULSE 76; RESP 17; O2SAT 95; BMI 20.5
[2021-07-12 13:40] VITALS: BP 127/79; PULSE 76; RESP 17; TEMP 36.7; O2SAT 95; BMI 21.8
--- NOTE | 2021-07-12 13:48 | HMH.EDUTC ---
[facility] [place] Disposition Clinical Impression: Strep sore throat Disposition: Home, Self-Care Condition on Discharge: Good Instructions: DI for Strep Throat Additional Instructions: Start antibiotics today be sure to take it as ordered with the full length of time although you should start feeling better in 24-48 hours. Change toothbrush and toothpaste 24-48 hours after starting antibiotics Tylenol or Motrin as needed for fever or pain Encourage fluids, water, Gatorade, Powerade, try cold fluids, popsicles, ice cream will make it feel better You are contagious for 24 hours. Avoid kissing anyone, no eating or drinking after anyone. You are contagious. Follow-up the ER for new or worsening symptoms or no noticeable improvement over the next 24-48 hours. Follow-up with PCP this week. Prescriptions: Azithromycin [Zithromax 250mg tab] 250 mg PO DIRECTED #6 tab Prescription Printed Referrals: Sherry Tidwell MD [Primary Care Provider] - Time of Disposition: 13:57 Medical Decision Making - Ildefonso Inquiry Pt receiving controlled substance: No Vital Signs: 07/12/21 13:29 07/12/21 13:40 Temperature 98.1 F Temperature Source Oral Pulse Rate [Left Radial] 76 76 Respiratory Rate 17 17 Blood Pressure [Right Arm] 127/79 127/79 Blood Pressure Mean [Right Arm] 95 95 Blood Pressure Source [Right Arm] Automatic Cuff Blood Pressure Position [Right Arm] Sitting 02 Sat by Pulse Oximetry 95 95 Oxygen Delivery Method Room Air Room Air - Lab Data Lab Results 07/12/21 13:35: Strep Scn Rapid Clinic Positive A [facility] [place] HPI - General Chief complaint: Urgent [facility] Stated complaint: difficulty eating/swallowing Time Seen by Provider: 07/12/21 13:49 Mode of Arrival: Ambulatory Source of Information: Patient Limitations: No Limitations Description of Symptoms (Recalled from Triage Doc. by RN): pt c/o sore throat since tuesday. pt states it is tender when he swallows. - History of Present Illness Provider Complaint: 75 yr old male presents for sore throat, cristofer ear pain, difficulty swallowing and throat pain. - Related Data Home Medications Medication Instructions Recorded Confirmed divalproex 250 mg tablet,delayed 250 mg PO TID 02/05/19 06/19/21 release gabapentin 100 mg tablet 300 mg PO DAILY 02/05/19 06/19/21 levothyroxine 25 mcg tablet 25 mcg PO DAILY 02/05/19 06/19/21 lisinopril 2.5 mg tablet 2.5 mg PO DAILY 02/05/19 06/19/21 Metoprolol Succinate [Metoprolol 25 mg PO DAILY 08/02/20 06/19/21 Succinate 25mg Tablet*] Rosuvastatin Calcium [Crestor 10mg 10 mg PO HS 08/02/20 06/19/21 Tablets] Warfarin Sodium [Coumadin 3mg 3 mg PO COUMADIN 10/07/20 06/19/21 tablet] polyethylene glycoL 3350 [Miralax 17 gm PO DAILYP PRN 10/07/20 06/19/21 17gm Packet] Linaclotide [Linzess] 145 mcg PO DAILY 06/19/21 06/19/21 Previous Rx's Medication Instructions Recorded Docusate Sodium [Docusate Sodium 100 mg PO BIDP PRN #60 cap 08/08/20 100mg Cap] methocarbamoL [Methocarbamol 500mg 500 mg PO QID #20 tab 06/19/21 Tablet] Azithromycin [Zithromax 250mg 250 mg PO DIRECTED #6 tab 07/12/21 tab] Allergies Allergy/AdvReac Type Severity Reaction Status Date / Time No Known Allergies Allergy Verified 10/27/20 10:04 [facility] History - Hepatitis A Screen Attestation statement:: This patient has been screened for Hepatitis A risk factors. I have reviewed the patient's past medical history: Yes 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: Reports:: Anxiety, Heart Murmur, Hyperlipidemia, Hypertension, Seizures, Transient Ischemic Attacks (TIA) Denies:: Cancer, Diabetes Mellitus Type 1, Diabetes Mellitus Type 2, Internal Pacemaker, Lung Disease, MRSA Other 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: Reports: Hypothyroidism. Denies: Blood Transfusion Reaction Other Surgeries: Yes: Cholecystectomy, Colonoscopy, EGD, Hernia Repair, Other. No: Pacemaker Amputation: No Fractures: Yes Comment: lt arm fx - Social History Smoki
[2021-07-12 13:53] LABS: UTC Strep Screen (Rapid) Positive (Negative)
[2021-07-12 13:54] VITALS: BP 127/79; PULSE 76; RESP 17; TEMP 36.7; O2SAT 95
== END 2021-07-12 14:02 | disposition home or self-care (01) ==
PROVIDERS: Emergency Provider Nurse Practitioner Family; PCP Family Medicine
DX: J02.0 Streptococcal pharyngitis (principal); B95.0 Streptococcus, group A, as the cause of diseases classified elsewhere; I10 Essential (primary) hypertension; I25.2 Old myocardial infarction; E78.5 Hyperlipidemia, unspecified; E03.9 Hypothyroidism, unspecified; G40.909 Epilepsy, unspecified, not intractable, without status epilepticus; F41.9 Anxiety disorder, unspecified; Z79.01 Long term (current) use of anticoagulants; Z79.899 Other long term (current) drug therapy; Z87.891 Personal history of nicotine dependence
CPT/HCPCS: 87880; 99213; G0463

== ENCOUNTER 2021-07-14 17:26 | Emergency (ER) | payer MEDICARE, MEDICAID, SELFPAY ==
[2021-07-14 17:28] VITALS: BP 168/97; PULSE 76; RESP 16; TEMP 36.7; O2SAT 96; BMI 21.3
[2021-07-14 17:35] VITALS: BP 168/97; PULSE 79; O2SAT 96
--- NOTE | 2021-07-14 17:47 | HMH.EDGENADL ---
ED Disposition Clinical Impression: Strep pharyngitis Disposition: Home, Self-Care Condition on Discharge: Good Instructions: DI for Strep Throat Additional Instructions: Take amoxicillin as prescribed. Tylenol with codeine as needed for pain. Follow-up with primary care provider if not improved in 2 to 3 days. Additional instructions for UPPER RESPIRATORY INFECTION: See your physician if not improving in 2-3 days or if worsening. Rest and drink plenty of fluids. Return if unable to swallow or difficulty opening mouth, any difficulty breathing. Additional instructions for CONTROLLED SUBSTANCES: You have been prescribed a medication that is a controlled substance. Controlled substances include pain medications known as opiates and sedative nerve medications known as benzodiazepines. Tramadol, fioricet, and gabapentin are also controlled substances. Some common opiates include: Codeine (such as Tylenol #3) Hydrocodone (Vicodin, Lortab, Lorcet, [place]) Oxycodone (Percocet, Percodan, Oxycodone, Oxy IR) Some common benzodiazepines include: Diazepam (Valium) Lorazepam (Ativan) Alprazolam (Xanax) Clonazepam (Klonopin) Oxazepam (Serax) All of these controlled substances are highly addictive and frequently abused. Misuse can and frequently does lead to addiction as well as overdose and . Medication should be stored in a locked cabinet or other secure storage unit. Do not store the medication in a motor vehicle. Short term supplies, 3 days or less, are prescribed because of the highly addictive nature of the medication. Any of the controlled substance medication NOT taken should be disposed of properly and NOT SAVED. The recommended method of disposing of unused medications is: Place the medicines in a sealable plastic bag. If the medicine is a solid, crush it or add water to dissolve it. Add something undesirable (cat litter, coffee grounds, etc.) Dispose of sealed bag in household trash Do not flush or pour unused medicines down a sink or drain. Controlled substances should not be shared, given away or sold. Because of the addictive nature and frequent abuse, these medications are sometimes stolen. These medications should be kept in a safe place where they cannot be stolen. Do not keep them in your car or purse. Lost or stolen prescriptions for controlled substances WILL NOT BE REFILLED in this emergency department, regardless of whether a police report was filed. Prescriptions: Amoxicillin [Amoxicillin 500mg Cap] 500 mg PO TID #30 cap Transmission Status: Pending to [id number] Referrals: Sherry Tidwell MD [Primary Care Provider] - - Critical Care Critical Care Time: No Attestation: On 07/14/21, the high probability of a clinically significant, sudden or life threatening deterioration of the following system(s) required my full and direct attention, intervention and personal management. The time I documented below is in addition to time spent performing reported procedures but includes the following listed in this critical care notation. Medical Decision Making - Ildefonso Inquiry Pt receiving controlled substance: Yes Ildefonso was queried for this patient: Yes Risks and benefits of using a controlled substance: were discussed with pt by me Vital Signs: 07/14/21 17:28 Temperature 98.0 F Temperature Source Oral Pulse Rate [Right Radial] 76 Respiratory Rate 16 Blood Pressure [Right Arm] 168/97 H Blood Pressure Mean [Right Arm] 120 Blood Pressure Source [Right Arm] Automatic Cuff Blood Pressure Position [Right Arm] Sitting 02 Sat by Pulse Oximetry 96 Oxygen Delivery Method Room Air Orders (Tests/Meds): ED MEDICATIONS Discontinued Medications Generic Name Dose Route Start Last Admin Trade Name Freq PRN Reason Stop Dose Admin Acetaminophen/Codeine Phosphate 1 each 07/14/21 17:54 Acetaminophen/Codeine #3 Tab PO 07/14/21 17:55 ONCE ONE
[2021-07-14 18:00] VITALS: BP 140/75; PULSE 59; O2SAT 97
[2021-07-14 18:02] VITALS: BP 130/80
[2021-07-14 18:33] VITALS: BP 154/82; PULSE 69; RESP 19; TEMP 36.6; O2SAT 96
== END 2021-07-14 18:46 | disposition home or self-care (01) ==
PROVIDERS: Emergency Provider Emergency Medicine; PCP Family Medicine
DX: J02.9 Acute pharyngitis, unspecified (principal); H92.01 Otalgia, right ear; I10 Essential (primary) hypertension; E78.5 Hyperlipidemia, unspecified; Z79.899 Other long term (current) drug therapy
CPT/HCPCS: 96372; 99283; J0696

== ENCOUNTER 2021-08-03 20:18 | Emergency (ER) | payer MEDICARE, MEDICAID, SELFPAY ==
[2021-08-03 20:20] VITALS: BP 160/90; PULSE 86; RESP 18; TEMP 36.3; O2SAT 95; BMI 23.3
--- NOTE | 2021-08-03 20:26 | ECG_ITS ---
APPROVED REPORT Exam: Resting ECG HR:89 bpm ECG Measurements Heart Rate 89 AXES AK 166 P 52 QRSd 90 QRS 62 QT 345 T 52 QTc 391 Conclusion SINUS RHYTHM WITH OCCASIONAL VENTRICULAR PREMATURE COMPLEXES MINIMAL VOLTAGE CRITERIA FOR LVH, CONSIDER NORMAL VARIANT [MEETS CRITERIA IN ONE OF: R(aVL), S(V1), R(V5), R(V5/V6)+S(V1)] MINIMAL ST DEPRESSION [0.025+ mV ST DEPRESSION] BORDERLINE ECG UNCONFIRMED REPORT Electronically signed by : Adrian Modi MD 08/06/2021 16:21:28
--- NOTE | 2021-08-03 20:49 | HMH.EDNECK ---
ED Disposition Clinical Impression: Cervical radicular pain Disposition: Home, Self-Care Condition on Discharge: Good Instructions: DI for Cervical Radiculopathy Additional Instructions: use meds and call pcp for follow up Prescriptions: predniSONE [Prednisone 20mg Tab] 20 mg PO BID #10 tab Transmission Status: Pending to [facility] Referrals: Sherry Tidwell MD [Primary Care Provider] - - Critical Care Critical Care Time: No Attestation: On 08/03/21, the high probability of a clinically significant, sudden or life threatening deterioration of the following system(s) required my full and direct attention, intervention and personal management. The time I documented below is in addition to time spent performing reported procedures but includes the following listed in this critical care notation. Medical Decision Making - Medical Records Medical records reviewed: Yes: I reviewed the patient's medical records. - Ildefonso Inquiry Pt receiving controlled substance: No Vital Signs: 08/03/21 20:20 Temperature 97.4 F L Temperature Source Oral Pulse Rate [Left Radial] 86 Respiratory Rate 18 Blood Pressure [Right Arm] 160/90 H Blood Pressure Mean [Right Arm] 113 Blood Pressure Position [Right Arm] Sitting 02 Sat by Pulse Oximetry 95 Oxygen Delivery Method Room Air - Lab Data Lab results reviewed: Yes: I reviewed the patient's lab results. Lab Results 08/03/21 20:34: WBC 7.2, RBC 5.16, Hgb 16.5, Hct 48.8, MCV 94.5 H, MCH 31.9 H, MCHC 33.8, RDW 14.2, Plt Count 209, MPV 8.2, Neut % (Auto) 53.4, Lymph % (Auto) 34.5, [place] % (Auto) 8.4, Eos % (Auto) 2.8, Baso % (Auto) 0.9, Neut # (Auto) 3.9, Lymph # (Auto) 2.5, [place] # (Auto) 0.6, Eos # (Auto) 0.2, Baso # (Auto) 0.1, ESR 16 08/03/21 20:34: Sodium 142, Potassium 3.5, Chloride 107, Carbon Dioxide 25, Anion Gap 13.5, BUN 22 H, Creatinine 1.10, Estimated Creat Clear 66, Estimated GFR 65, Est GFR ( Amer) 79, Glucose 130 H, Calcium 9.8, Total Bilirubin 0.7, AST 30, ALT 33, Alkaline Phosphatase 62, Troponin I < 0.01, Total Protein 8.0, Albumin 4.6, Globulin 3.4 H, Albumin/Globulin Ratio 1.4 Result diagrams: 08/03/21 20:34 08/03/21 20:34 Orders (Tests/Meds): ED MEDICATIONS Generic Name Dose Route Start Last Admin Trade Name Freq PRN Reason Stop Dose Admin Methocarbamol 500 mg 08/03/21 21:45 08/03/21 21:43 Methocarbamol 500mg Tablet PO 09/02/21 21:44 500 mg BID TARA Administration Sodium Chloride 10 ml 08/03/21 21:05 Sodium Chloride 0.9% 10ml Flush Syringe IV 09/02/21 21:04 NEEDED PRN Maintain IV Site Discontinued Medications Generic Name Dose Route Start Last Admin Trade Name Freq PRN Reason Stop Dose Admin Acetaminophen 1,000 mg 08/03/21 21:40 08/03/21 21:43 Acetaminophen 500mg Tab PO 08/03/21 21:41 1,000 mg ONCE ONE Administration Methylprednisolone Sodium Succinate 125 mg 08/03/21 21:40 08/03/21 21:43 Methylprednisolone Sod Succ 125mg Vial IV 08/03/21 21:41 125 mg ONCE ONE Administration ORDERS Category Date Time Status PT/INR [Prothrombin Time INR] Stat Lab 08/03/21 20:34 Received Troponin I Q3H Lab 08/04/21 00:15 Ordered Troponin I Q3H Lab 08/04/21 03:15 Ordered - Radiology Data #1 Image(s): Chest Image Reviewed: Yes I have reviewed radiologist's interpretation Preliminary Findings: Normal/NAD - CT Data CT Scan: Head, C-Spine Time Received: 22:[address] Reviewed: Yes: I have viewed the radiologist's interpretation Preliminary Findings: Abnormal, No Fracture Seen - ECG Data Tracing #1 Normal Sinus Rhythm: Yes Ischemic changes: non-specific ST-T wave changes - BRENDA Score for Non-Stemi Age of Patient: 70-79 years old Heart Rate: 70-89 bpm Systolic Blood Pressure: 160-199 mmHg Serum Creatinine: 0.80-1.19 mg/dl CHF [place] Class: I-No CHF Other Risk Factors: None Non-Stemi Risk Score: 101 Neck Pain/Injury HPI - General Chief Comp
--- NOTE | 2021-08-03 21:05 | CT_ITS ---
PROCEDURE INFORMATION: Exam: CT Head Without Contrast Exam date and time: 08/03/2021 9:28 PM Age: 75 years old Clinical indication: Other: Head/neck pain TECHNIQUE: Imaging protocol: Computed tomography of the head without contrast. Radiation optimization: All CT scans at this facility use at least one of these dose optimization techniques: automated exposure control; mA and/or kV adjustment per patient size (includes targeted exams where dose is matched to clinical indication); or iterative reconstruction. COMPARISON: MR CERVICAL SPINE WO CON 02/12/2019 1:43 PM FINDINGS: Brain: Moderate to severe atrophy. No intracranial hemorrhage. No mass. Encephalomalacia within LEFT frontal, LEFT parietal regions. 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 Few scattered foci of decreased attenuation within periventricular/subcortical white matter. No edema. Cerebral ventricles: No hydrocephalus. Paranasal sinuses: Scattered minimal mucosal thickening. Mastoid air cells: No significant effusion. Orbital cavities: Unremarkable as visualized. Vasculature: Atherosclerotic disease of intracranial arteries. Bones/joints: No acute fracture. Soft tissues: Minimal scalp swelling. IMPRESSION: 1. No intracranial hemorrhage. 2. Probable chronic microvascular ischemic changes.
--- NOTE | 2021-08-03 21:05 | CT_ITS ---
PROCEDURE INFORMATION: Exam: CT Cervical Spine Without Contrast Exam date and time: 08/03/2021 9:28 PM Age: 75 years old Clinical indication: Neck pain; Additional info: Head/neck pain TECHNIQUE: Imaging protocol: Computed tomography images of the cervical spine without contrast. Radiation optimization: All CT scans at this facility use at least one of these dose optimization techniques: automated exposure control; mA and/or kV adjustment per patient size (includes targeted exams where dose is matched to clinical indication); or iterative reconstruction. COMPARISON: MR CERVICAL SPINE WO CON 02/12/2019 1:43 PM FINDINGS: Bones/joints: No acute fracture. Normal alignment. Discs/Spinal canal/Neural foramina: Mild to moderate degenerative disc disease/uncovertebral osteoarthrosis within mid cervical spine. Moderate to severe degenerative disc disease/uncovertebral osteoarthrosis within lower cervical spine. Mild indentation thecal sac/cord mid and lower cervical spine. Neuroforaminal narrowing within mid and lower cervical spine. Sinuses: Scattered minimal mucosal thickening. Lungs: Unremarkable as visualized. Vasculature: Mild atherosclerotic disease of carotid arteries. Soft tissues: Unremarkable. IMPRESSION: No fracture.
--- NOTE | 2021-08-03 21:05 | XR_ITS ---
PROCEDURE INFORMATION: Exam: XR Chest Exam date and time: 08/03/2021 9:18 PM Age: 75 years old Clinical indication: Left-sided; Patient HX: Left sided chest pain since last week. TECHNIQUE: Imaging protocol: XR of the chest. Views: 2 views. COMPARISON: CR XR CHEST 2V 06/19/2021 8:25 AM FINDINGS: Lungs: Mild hypoinflation and bibasilar atelectasis or scarring, similar to prior. No consolidation. Pleural spaces: No pleural effusion. No pneumothorax. Heart/Mediastinum: Normal heart size. Bones/joints: Spondylosis. Secondary findings of chronic bilateral rotator cuff tendon tears. Old rib fractures. IMPRESSION: Hypoinflation with mild bibasilar atelectasis or scarring.
[2021-08-03 21:26] LABS: Basophils # 0.1 K/mm3 (0-0.2); Basophils % 0.9 % (0.1-2.0); Eosinophils # 0.2 K/mm3 (0.0-0.4); Eosinophils % 2.8 % (0.1-12.0); Hematocrit 48.8 % (42.0-52.0); Hemoglobin 16.5 g/dL (14.1-18.0); Lymphocytes # 2.5 K/mm3 (0.7-4.5); Lymphocytes % 34.5 % (10-50); Mean Corpuscular HGB Conc 33.8 g/dL (31.8-35.4); Mean Corpuscular Hemoglobin 31.9 pg (27.0-31.2); Mean Corpuscular Volume 94.5 fl (80-94); Mean Platelet Volume 8.2 fl (7.4-10.4); Monocytes # 0.6 K/mm3 (0.1-1.0); Monocytes % 8.4 % (1.7-9.3); Neutrophils # 3.9 K/mm3 (1.8-7.8); Neutrophils % 53.4 % (37.0-80.0); Platelet Count 209 K/mm3 (142-424); Red Blood Count 5.16 M/mm3 (4.60-6.20); Red Cell Distribution Width 14.2 % (11.5-17.5); White Blood Count 7.2 K/mm3 (4.8-10.8)
[2021-08-03 21:31] LABS: Alanine Aminotransferase 33 U/L (12-78); Albumin Level 4.6 g/dl (3.5-5.0); Albumin/Globulin Ratio 1.4 (1.1-1.8); Alkaline Phosphatase 62 U/L (38-126); Anion Gap 13.5 mEq/L (5-15); Aspartate Amino Transferase 30 U/L (17-59); Bilirubin,Total 0.7 mg/dl (0.2-1.3); Blood Urea Nitrogen 22 mg/dl (9-20); Calcium 9.8 mg/dl (8.4-10.2); Carbon Dioxide 25 mmol/L (22.0-30.0); Chloride 107 mmol/L (98-107); Creatinine Clearance Estimated 66 mL/min (50-200); Estimated Glomerular Filt Rate 65 ml/min (>60); GFR (African American) 79 ML/MIN (>60); Globulin 3.4 g/dL (1.3-3.2); Glucose 130 mg/dl (74-100); Potassium 3.5 mmoL/L (3.5-5.1); Sodium 142 mmol/L (136-145)
[2021-08-03 21:43] LABS: Troponin I < 0.01 ng/ml (0.00-0.034)
[2021-08-03 22:24] LABS: Erythrocyte Sedimentation Rate 16 mm/hr (0-20)
[2021-08-03 22:41] LABS: Prothrombin Time 17.5 seconds (10.1-12.5)
[2021-08-03 22:56] VITALS: BP 133/111; PULSE 55; RESP 14; TEMP 36.9; O2SAT 93
== END 2021-08-03 23:04 | disposition home or self-care (01) ==
PROVIDERS: Emergency Provider Emergency Medicine; PCP Family Medicine
DX: M54.12 Radiculopathy, cervical region (principal); G45.9 Transient cerebral ischemic attack, unspecified; R51.9 Headache, unspecified; R01.1 Cardiac murmur, unspecified; E78.5 Hyperlipidemia, unspecified; E03.9 Hypothyroidism, unspecified; G40.909 Epilepsy, unspecified, not intractable, without status epilepticus; F41.9 Anxiety disorder, unspecified; F17.210 Nicotine dependence, cigarettes, uncomplicated; Z79.52 Long term (current) use of systemic steroids; Z79.899 Other long term (current) drug therapy
CPT/HCPCS: 70450; 71046; 72125; 80053; 84484; 85025; 85610; 85651; 93005; 96365; 96374; 99285

== ENCOUNTER → 2021-11-09 08:40 | Outpatient (CLI) | payer MEDICARE, MEDICAID, SELFPAY ==
[2021-11-06 15:15] LABS: INR 2.15 (0.9-1.1)
== END ==
PROVIDERS: Visit Provider Family Medicine
DX: R07.89 Other chest pain (principal); Z51.81 Encounter for therapeutic drug level monitoring; Z79.01 Long term (current) use of anticoagulants
CPT/HCPCS: 36415; 85610

== ENCOUNTER → 2021-11-14 08:53 | Outpatient (CLI) | payer MEDICARE, MEDICAID, SELFPAY | PROVIDERS: PCP Family Medicine; Visit Provider Family Medicine | DX: R30.0 Dysuria (principal); B95.8 Unspecified staphylococcus as the cause of diseases classified elsewhere | CPT/HCPCS: 87086; 87088; 87186 ==

== ENCOUNTER → 2021-11-16 12:12 | Outpatient (CLI) | payer MEDICARE, OTHER, SELFPAY ==
--- NOTE | 2021-11-16 12:21 | XR_ITS ---
FINAL REPORT CLINICAL HISTORY: Pneumonia COMPARISON: 08/04/2021 FINDINGS: 2 views of the chest were obtained . The heart is normal in size. The mediastinum is within normal limits. There are mild chronic changes. The lungs are otherwise clear. There is no pneumothorax. Osseous structures are unremarkable. IMPRESSION: No acute cardiopulmonary process. Reviewed, Interpreted and Dictated by Slava Leon MD Transcribed by Shelley Lane Authenticated and [facility]
== END ==
PROVIDERS: PCP Family Medicine; Visit Provider Family Medicine
DX: J18.9 Pneumonia, unspecified organism (principal)
CPT/HCPCS: 71046

== ENCOUNTER → 2021-12-05 09:18 | Outpatient (CLI) | payer MEDICARE, MEDICAID, SELFPAY ==
[2021-12-04 17:30] LABS: INR 1.09 (0.9-1.1); Prothrombin Time 12.2 seconds (10.1-12.5)
== END ==
PROVIDERS: PCP Family Medicine; Visit Provider Family Medicine
DX: R07.89 Other chest pain (principal); Z51.81 Encounter for therapeutic drug level monitoring; Z79.01 Long term (current) use of anticoagulants
CPT/HCPCS: 85610

== ENCOUNTER → 2021-12-25 13:20 | Outpatient (CLI) | payer MEDICARE, MEDICAID, SELFPAY ==
[2021-12-25 15:48] LABS: INR 1.89 (0.9-1.1); Prothrombin Time 20.4 seconds (10.1-12.5)
== END ==
PROVIDERS: PCP Family Medicine; Visit Provider Family Medicine
DX: Z79.01 Long term (current) use of anticoagulants (principal); Z51.81 Encounter for therapeutic drug level monitoring
CPT/HCPCS: 85610

== ENCOUNTER → 2022-01-08 | Outpatient (CLI) | payer MEDICARE, OTHER, SELFPAY ==
[2022-01-08 15:11] LABS: Basophils # 0.1 K/mm3 (0-0.2); Basophils % 0.7 % (0.1-2.0); Eosinophils # 0.3 K/mm3 (0.0-0.4); Eosinophils % 3.5 % (0.1-12.0); Hematocrit 47.9 % (42.0-52.0); Hemoglobin 15.4 g/dL (14.1-18.0); Lymphocytes # 2.1 K/mm3 (0.7-4.5); Lymphocytes % 27.2 % (10-50); Mean Corpuscular HGB Conc 32.2 g/dL (31.8-35.4); Mean Corpuscular Hemoglobin 31.2 pg (27.0-31.2); Mean Corpuscular Volume 96.9 fl (80-94); Mean Platelet Volume 8.1 fl (7.4-10.4); Monocytes # 0.6 K/mm3 (0.1-1.0); Monocytes % 7.5 % (1.7-9.3); Neutrophils # 4.8 K/mm3 (1.8-7.8); Neutrophils % 61.2 % (37.0-80.0); Platelet Count 205 K/mm3 (142-424); Red Blood Count 4.94 M/mm3 (4.60-6.20); Red Cell Distribution Width 14.1 % (11.5-17.5); White Blood Count 7.8 K/mm3 (4.8-10.8)
[2022-01-08 15:16] LABS: INR 1.79 (0.9-1.1); Prothrombin Time 18.7 seconds (10.1-12.5)
== END ==
PROVIDERS: PCP Family Medicine; Visit Provider Family Medicine
DX: R07.9 Chest pain, unspecified (principal); E03.9 Hypothyroidism, unspecified; Z51.81 Encounter for therapeutic drug level monitoring; Z79.01 Long term (current) use of anticoagulants
CPT/HCPCS: 85025; 85610

== ENCOUNTER → 2022-01-19 06:33 | Outpatient (CLI) | payer MEDICARE, OTHER, SELFPAY ==
[2022-01-19 15:58] LABS: INR 1.61 (0.9-1.1); Prothrombin Time 16.9 seconds (10.1-12.5)
[2022-01-19 16:26] LABS: Anion Gap 21.3 mEq/L (5-15); Blood Urea Nitrogen 17 mg/dl (9-20); Calcium 9.6 mg/dl (8.4-10.2); Carbon Dioxide 22 mmol/L (22.0-30.0); Chloride 100 mmol/L (98-107); Estimated Glomerular Filt Rate 82 ml/min (>60); GFR (African American) 99 ML/MIN (>60); Glucose 82 mg/dl (74-100); Potassium 5.3 mmoL/L (3.5-5.1); Sodium 138 mmol/L (136-145)
== END ==
PROVIDERS: PCP Family Medicine; Visit Provider Family Medicine
DX: Z79.01 Long term (current) use of anticoagulants (principal); R10.9 Unspecified abdominal pain; Z51.81 Encounter for therapeutic drug level monitoring
CPT/HCPCS: 80048; 85610

== ENCOUNTER → 2022-04-13 14:02 | Outpatient (CLI) | payer MEDICARE, OTHER, SELFPAY ==
[2022-04-13 19:24] LABS: INR 1.42 (0.9-1.1)
[2022-04-13 19:44] LABS: Chloride 103 mmol/L (98-107); Sodium 136 mmol/L (136-145)
[2022-04-13 19:47] LABS: Blood Urea Nitrogen 24 mg/dl (9-20); Carbon Dioxide 23 mmol/L (22.0-30.0); Estimated Glomerular Filt Rate 65 ml/min (>60); GFR (African American) 78 ML/MIN (>60)
[2022-04-13 19:48] LABS: Calcium 10.2 mg/dl (8.4-10.2); Glucose 81 mg/dl (74-100)
== END ==
PROVIDERS: PCP Family Medicine; Visit Provider Family Medicine
DX: D69.9 Hemorrhagic condition, unspecified (principal); E87.5 Hyperkalemia; Z51.81 Encounter for therapeutic drug level monitoring
CPT/HCPCS: 80048; 85610

== ENCOUNTER → 2022-06-15 23:00 | Outpatient (CLI) | payer MEDICARE, OTHER, SELFPAY ==
[2022-06-15 14:48] LABS: INR 1.93 (0.9-1.1); Prothrombin Time 20.1 seconds (10.1-12.5)
[2022-06-15 20:02] LABS: Anion Gap 13.1 mEq/L (5-15); Blood Urea Nitrogen 24 mg/dl (9-20); Carbon Dioxide 24 mmol/L (22.0-30.0); Chloride 106 mmol/L (98-107); Estimated Glomerular Filt Rate 72 ml/min (>60); GFR (African American) 87 ML/MIN (>60); Glucose 83 mg/dl (74-100); Potassium 4.1 mmoL/L (3.5-5.1); Sodium 139 mmol/L (136-145)
== END ==
PROVIDERS: PCP Family Medicine; Visit Provider Family Medicine
DX: R07.9 Chest pain, unspecified (principal); I10 Essential (primary) hypertension
CPT/HCPCS: 80048; 85610

== ENCOUNTER 2022-08-27 07:29 | Emergency (ER) | payer MEDICARE, OTHER, SELFPAY ==
[2022-08-27 07:36] VITALS: BP 165/83; PULSE 76; RESP 16; TEMP 36.6; O2SAT 96; BMI 22.1
--- NOTE | 2022-08-27 08:03 | PC.NURSE ---
Dr. Tripp at
--- NOTE | 2022-08-27 08:05 | HMH.EDNECK ---
Discharge Plan Disposition Patient Disposition: Home, Self-Care Condition: Fair Prescriptions Prescriptions: New hydrocodone-acetaminophen 5-325 mg tablet 1 tab PO Q6H PRN (Reason: pain) Qty: 14 0RF No Action Linzess 145 mcg capsule 145 mcg PO DAILY diazepam 2 mg tablet 4 mg PO HS PRN warfarin 3 mg tablet 3 mg PO .QSNMWF Qty: 90 3RF warfarin 3 mg tablet 6 mg PO .QTUWTHSA Qty: 180 3RF sucralfate 1 gram tablet 1 g PO QACHS Qty: 120 3RF docusate sodium 100 mg capsule 100 mg PO BIDP PRN (Reason: Constipation) Qty: 60 3RF lisinopril 2.5 mg tablet 2.5 mg PO DAILY Qty: 30 5RF divalproex 250 mg tablet,delayed release (DR/EC) 250 mg PO TID Qty: 90 2RF cholecalciferol (vitamin D3) 125 mcg (5,000 unit) capsule 125 mcg PO DAILY Qty: 90 0RF rosuvastatin 10 mg tablet See Rx Instructions .ROUTE .COMPLEX Qty: 90 2RF Dose Instruction: Take 1 Tablet by mouth at bedtime for cholesterol. Rx Instructions: Take 1 Tablet by mouth at bedtime for cholesterol. gabapentin 300 mg capsule 300 mg PO TID PRN (Reason: pain) Qty: 90 2RF levothyroxine 25 mcg tablet See Rx Instructions .ROUTE .COMPLEX Qty: 90 0RF Dose Instruction: Take 1 tablet by mouth once daily for THYROID Rx Instructions: Take 1 tablet by mouth once daily for THYROID Referrals Follow up/Referrals: Sherry Tidwell MD [Primary Care Provider] - See instructions Activity Restrictions/Add. Instructions Additional Instructions/Restrictions: Please follow-up with your primary care doctor in about 2 to 3 days if you do not improve. Return to the emergency department immediately if you worsen in any way. You have been prescribed Lortab. Lortab is a medication which can cause addiction, constipation, drowsiness. Please do not drive or operate any heavy machinery while taking this medication. Clinical Impressions Clinical Impression: Acute neck pain, Strain of neck muscle Instructions Patient Instructions: DI for Neck Pain Discharge ED Provider: Danish Tripp Neck Pain/Injury [facility] General Chief Complaint: Neck Pain/Injury Stated Complaint: Possible neck spasms Time Seen by Provider: 08/27/22 08:06 Source of Information: Patient and Relative Limitations: No Limitations Description of Symptoms (Recalled from ER Triage Doc. by RN): Presents via POV d/t neck pain that started while weed eating x 2 days ago. Pt states lying down or rotating neck worsens the pain. Tx Gabapentin without relief. Denies tingling/numbness to extremities. History of Present Illness HPI Narrative: The patient presents to the emergency department complaining of posterior neck pain predominantly on the right side. He stated that this got worse after weed eating yesterday. He denies any falls or injuries. The pain is worse when he moves his neck, especially when he turns his face to the right. He denies any neurologic deficits or symptoms. MD complaint: neck pain Related Data Home Medications Medication Instructions Recorded Confirmed linaclotide 145 mcg capsule 145 mcg PO DAILY 11/13/21 08/24/22 (Linzess) diazepam 2 mg tablet 4 mg PO HS PRN 01/19/22 08/24/22 Previous Rx's Medication Instructions Recorded docusate sodium 100 mg capsule 100 mg PO BIDP PRN Constipation 12/03/21 #60 caps sucralfate 1 gram tablet 1 g PO QACHS #120 tabs 12/04/21 lisinopril 2.5 mg tablet 2.5 mg PO DAILY BP #30 tabs 03/19/22 cholecalciferol (vitamin D3) 125 125 mcg PO DAILY #90 caps 04/14/22 mcg (5,000 unit) capsule divalproex 250 mg tablet,delayed 250 mg PO TID seizures #90 tabs 04/14/22 release gabapentin 300 mg capsule 300 mg PO TID PRN pain #90 caps 06/15/22 rosuvastatin 10 mg tablet See Rx Instructions .Route 06/15/22 .COMPLEX #90 tabs warfarin 3 mg tablet 3 mg PO .QSNMWF #90 tabs 07/13/22 levothyroxine 25 mcg tablet See Rx Instructions .Route 08/11/22 .COMPLEX #90 tabs warfarin 3 mg tablet 6
[2022-08-27 08:34] VITALS: BP 132/72; PULSE 69; O2SAT 95
--- NOTE | 2022-08-27 08:37 | PC.NURSE ---
Rounded on patient and hooked patient back up to monitor. No needs at this time, call light within reach. Family at reports no needs at this time as well.
[2022-08-27 09:00] VITALS: BP 135/82; PULSE 78; O2SAT 96
--- NOTE | 2022-08-27 09:08 | PC.NURSE ---
notified of minimal improvement post Toradol IM. VO Morphine 4mg IM.
[2022-08-27 09:30] VITALS: BP 135/75; PULSE 78; O2SAT 98
--- NOTE | 2022-08-27 09:44 | PC.NURSE ---
REJI Tena rounded on patient. Call light within reach. Pt requesting no needs at this time. Family at BS
--- NOTE | 2022-08-27 09:49 | PC.NURSE ---
Improvement with Morphine IM. Pt able to rotate neck at this point. MD notified.
--- NOTE | 2022-08-27 09:51 | PC.NURSE ---
rounded on pt no complaints at this time, visitor at bs
[2022-08-27 10:15] VITALS: BP 137/86; PULSE 75; RESP 16; TEMP 36.7; O2SAT 99
== END 2022-08-27 10:17 | disposition home or self-care (01) ==
PROVIDERS: Emergency Provider Emergency Medicine; PCP Family Medicine
DX: S16.1XXA Strain of muscle, fascia and tendon at neck level, initial encounter (principal); X50.1XXA Overexertion from prolonged static or awkward postures, initial encounter
CPT/HCPCS: 96372; 99283; 99284

== ENCOUNTER → 2022-12-14 23:21 | Outpatient (CLI) | payer MEDICARE, OTHER, SELFPAY ==
[2022-12-14 19:28] LABS: Alanine Aminotransferase 26 U/L (12-78); Albumin Level 4.1 g/dl (3.5-5.0); Albumin/Globulin Ratio 1.6 (1.1-1.8); Alkaline Phosphatase 67 U/L (38-126); Anion Gap 13.6 mEq/L (5-15); Aspartate Amino Transferase 30 U/L (17-59); Bilirubin,Total 0.5 mg/dl (0.2-1.3); Blood Urea Nitrogen 20 mg/dl (9-20); Calcium 9.6 mg/dl (8.4-10.2); Carbon Dioxide 26 mmol/L (22.0-30.0); Chloride 108 mmol/L (98-107); Estimated Glomerular Filt Rate 81 ml/min (>60); GFR (African American) 98 ML/MIN (>60); Globulin 2.6 g/dL (1.3-3.2); Glucose 79 mg/dl (74-100); Potassium 4.6 mmoL/L (3.5-5.1); Sodium 143 mmol/L (136-145); Total Protein,Serum 6.7 g/dl (6.3-8.2)
[2022-12-14 19:30] LABS: Basophils % 0.3 % (0.1-2.0); Eosinophils # 0.2 K/mm3 (0.0-0.4); Eosinophils % 2.4 % (0.1-12.0); Hematocrit 44.4 % (42.0-52.0); Hemoglobin 14.2 g/dL (14.1-18.0); Lymphocytes # 2.1 K/mm3 (0.7-4.5); Lymphocytes % 31.2 % (10-50); Mean Corpuscular Hemoglobin 30.7 pg (27.0-31.2); Mean Corpuscular Volume 95.9 fl (80-94); Monocytes # 0.5 K/mm3 (0.1-1.0); Monocytes % 7.6 % (1.7-9.3); Neutrophils % 58.5 % (37.0-80.0); Platelet Count 184 K/mm3 (142-424); Red Blood Count 4.63 M/mm3 (4.60-6.20); Red Cell Distribution Width 14.1 % (11.5-17.5); White Blood Count 6.8 K/mm3 (4.8-10.8)
== END ==
PROVIDERS: PCP Family Medicine; Visit Provider Family Medicine
DX: M79.604 Pain in right leg (principal); M79.605 Pain in left leg; I10 Essential (primary) hypertension
CPT/HCPCS: 80053; 85025

== ENCOUNTER → 2023-03-15 09:26 | Outpatient (CLI) | payer MEDICARE, OTHER, SELFPAY ==
[2023-03-15 18:54] LABS: Adenovirus,PCR Not Detected (NotDetected); Coronavirus 19, PCR Not Detected (NotDetected); Coronavirus 229E Not Detected (NotDetected); Coronavirus NL63 Not Detected (NotDetected); Coronavirus OC43 Not Detected (NotDetected); Coronovirus HKU1,PCR Not Detected (NotDetected); Human Metapneumovirus Not Detected (NotDetected); Influenza A, PCR Not Detected (NotDetected); Influenza AH1, 2009 Not Detected (NotDetected); Influenza AH1, PCR Not Detected (NotDetected); Influenza AH3,PCR Not Detected (NotDetected); Influenza B, PCR Not Detected (NotDetected); Parainfluenza 1, PCR Not Detected (NotDetected); Parainfluenza 2, PCR Not Detected (NotDetected); Parainfluenza 3, PCR Not Detected (NotDetected); Parainfluenza 4, PCR Not Detected (NotDetected); Respiratory Syncytial Virus Not Detected (NotDetected); Rhinovirus/Enterovirus Not Detected (NotDetected)
[2023-03-15 19:05] LABS: Basophils % 0.4 % (0.1-2.0); Eosinophils # 0.2 K/mm3 (0.0-0.4); Eosinophils % 1.5 % (0.1-12.0); Hematocrit 43.4 % (42.0-52.0); Hemoglobin 14.8 g/dL (14.1-18.0); Lymphocytes # 2.5 K/mm3 (0.7-4.5); Lymphocytes % 26.2 % (10-50); Mean Corpuscular HGB Conc 34.1 g/dL (31.8-35.4); Mean Corpuscular Volume 96.8 fl (80-94); Mean Platelet Volume 9.2 fl (7.4-10.4); Monocytes # 0.8 K/mm3 (0.1-1.0); Monocytes % 8.4 % (1.7-9.3); Neutrophils # 6.1 K/mm3 (1.8-7.8); Neutrophils % 63.4 % (37.0-80.0); Platelet Count 162 K/mm3 (142-424); Red Blood Count 4.49 M/mm3 (4.60-6.20); Red Cell Distribution Width 13.6 % (11.5-17.5); White Blood Count 9.6 K/mm3 (4.8-10.8)
== END ==
PROVIDERS: PCP Family Medicine; Visit Provider Family Medicine
DX: J40 Bronchitis, not specified as acute or chronic (principal); R07.0 Pain in throat; R05.9 Cough, unspecified; R68.89 Other general symptoms and signs
CPT/HCPCS: 85025; 87632; 87635

== ENCOUNTER 2023-06-18 11:46 | Emergency (ER) | payer MEDICARE, OTHER, SELFPAY ==
[2023-06-18 11:47] VITALS: BP 166/88; PULSE 79; RESP 18; TEMP 36.4; O2SAT 94; BMI 21.8
[2023-06-18 12:30] VITALS: BP 153/79; PULSE 72; O2SAT 93
--- NOTE | 2023-06-18 12:51 | XR_ITS ---
PROCEDURE INFORMATION: Exam: XR Left Foot Exam date and time: 06/18/2023 12:59 PM Age: 77 years old Clinical indication: Pain; Foot; Left; Additional info: Pain with ambulation TECHNIQUE: Imaging protocol: Radiologic exam of the left foot. Views: 3 or more views. COMPARISON: CR XR ANKLE LT MIN 3V 06/18/2023 12:59 PM FINDINGS: Bones/joints: Hindfoot-midfoot and midfoot-forefoot articulations normal. Metatarsals and phalanges without an acute process. Subtalar and tibiotalar joint normal. Mild degenerative changes at the first metatarsal phalangeal joint. Mild soft tissue swelling about the joint space medially. Early spur formation at the insertion of the Achilles' tendon and plantar aponeurosis. Soft tissues: See Bones/joints finding. IMPRESSION: 1. Mild degenerative changes at the first metatarsal phalangeal joint. Mild soft tissue swelling about the joint space medially. 2. Early spur formation at the insertion of the Achilles' tendon and plantar aponeurosis.
--- NOTE | 2023-06-18 12:51 | XR_ITS ---
PROCEDURE INFORMATION: Exam: XR Left Tibia and Fibula Exam date and time: 06/18/2023 12:59 PM Age: 77 years old Clinical indication: Pain; Lower leg; Left; Additional info: Pain with ambulation TECHNIQUE: Imaging protocol: Radiologic exam of the left tibia and fibula. Views: 2 views. COMPARISON: CR XR ANKLE LT MIN 3V 06/18/2023 12:59 PM FINDINGS: Bones/joints: Osseous structures unremarkable. No erosive changes. No periosteal response. No fracture. No soft tissue calcifications. Moderate degenerative changes within the knee. Spur formation at the insertion of the Achilles' tendon and plantar aponeurosis. Soft tissues: See Bones/joints finding. IMPRESSION: 1. Osseous structures unremarkable. No erosive changes. No periosteal response. No fracture. No soft tissue calcifications. 2. Moderate degenerative changes within the knee. 3. Spur formation at the insertion of the Achilles' tendon and plantar aponeurosis.
--- NOTE | 2023-06-18 12:51 | XR_ITS ---
PROCEDURE INFORMATION: Exam: XR Left Ankle Exam date and time: 06/18/2023 12:59 PM Age: 77 years old Clinical indication: Pain; Ankle; Left; Additional info: Pain with ambulation TECHNIQUE: Imaging protocol: Radiologic exam of the left ankle. Views: 3 or more views. COMPARISON: CR XR FOOT LT MIN 3V 06/18/2023 12:59 PM FINDINGS: Bones/joints: medial and lateral malleoli are normal. Ankle mortise is symmetrical. No fracture. Hindfoot is unremarkable. Tibiotalar joint and the subtalar joint appears normal. Spur formation at the insertion of the Achilles' tendon and plantar aponeurosis. Soft tissues: Normal. IMPRESSION: 1. Normal osseous ankle. 2. Spur formation at the insertion of the Achilles' tendon and plantar aponeurosis.
--- NOTE | 2023-06-18 12:53 | HMH.EDGENADL ---
Discharge Plan Disposition Patient Disposition: Home, Self-Care Prescriptions Prescriptions: New ibuprofen 800 mg tablet 800 mg PO TID PRN (Reason: pain) 7 Days Qty: 20 0RF cyclobenzaprine 5 mg tablet 5 mg PO TID PRN (Reason: muscle spasm) 5 Days Qty: 15 0RF No Action Linzess 145 mcg capsule 145 mcg PO DAILY diazepam 2 mg tablet 4 mg PO HS PRN lisinopril 2.5 mg tablet 2.5 mg PO DAILY Qty: 30 5RF cholecalciferol (vitamin D3) 125 mcg (5,000 unit) capsule See Rx Instructions .ROUTE .COMPLEX Qty: 90 2RF Dose Instruction: Take 1 Capsule by mouth once daily. Rx Instructions: Take 1 Capsule by mouth once daily. warfarin 3 mg tablet 3 mg PO DAILY Qty: 180 3RF docusate sodium 100 mg capsule 100 mg PO BIDP PRN (Reason: Constipation) Qty: 60 3RF gabapentin 300 mg capsule 300 mg PO TID PRN (Reason: pain) Qty: 90 2RF divalproex 250 mg tablet,delayed release (DR/EC) See Rx Instructions .ROUTE .COMPLEX Qty: 90 4RF Dose Instruction: TAKE 1 TABLET BY MOUTH 3 TIMES DAILY Rx Instructions: TAKE 1 TABLET BY MOUTH 3 TIMES DAILY sucralfate 1 gram tablet See Rx Instructions .ROUTE .COMPLEX Qty: 120 3RF Dose Instruction: Take 1 Tablet by mouth before meals and at bedtime. Rx Instructions: Take 1 Tablet by mouth before meals and at bedtime. rosuvastatin 10 mg tablet See Rx Instructions .ROUTE .COMPLEX Qty: 90 2RF Dose Instruction: Take 1 Tablet by mouth at bedtime for cholesterol. Rx Instructions: Take 1 Tablet by mouth at bedtime for cholesterol. levothyroxine 25 mcg tablet See Rx Instructions .ROUTE .COMPLEX Qty: 90 0RF Dose Instruction: Take 1 Tablet by mouth once daily for THYROID. Rx Instructions: Take 1 Tablet by mouth once daily for THYROID. hydrocodone-acetaminophen 5-325 mg tablet 1 tab PO Q6H PRN (Reason: pain) Qty: 14 0RF Referrals Follow up/Referrals: Sherry Tidwell MD [Primary Care Provider] - See instructions Kale Rocha DO [Staff Physician] - See instructions Lila Pringle DPM [Staff Physician] - See instructions Activity Restrictions/Add. Instructions Additional Instructions/Restrictions: Your symptoms are consistent with insertional Achilles tendinopathy. Please follow-up with Dr. Jackson or Dr. Rocha as needed for further evaluation and treatment of this which would include possible MRI physical therapy etc. In the meantime he may take anti-inflammatory medication muscle laxer that are prescribed. Clinical Impressions Clinical Impression: Acute left ankle pain, Insertional Achilles tendinopathy Discharge ED Provider: Fritz Klein General Adult HPI General Chief complaint: PAIN Stated complaint: Pain in L leg/History of BC Time Seen by Provider: 06/18/23 12:48 Mode of Arrival: Ambulatory Source of Information: Patient Limitations: No Limitations Description of Symptoms (Recalled from ER Triage Doc. by RN): patient presents to ER left leg pain from knee to ankle states he is concerned for blood clots due to history of blood clots. States walkingmakes it worse. History of Present Illness HPI narrative: Patient is a 77-year-old who presents today with pain in the left ankle with ambulation. He has a history of a clot in his abdomen but has never had a DVT or any type of left lower extremity or lower extremity clot. States has had no swelling. No injuries that he is aware of. Just has pain only with bearing weight and is only in the ankle. States he does have some difficulty with range of motion of the left knee as well. Patient denies any redness any swelling fevers any other injuries etc. Related Data Home Medications Medication Instructions Recorded Confirmed linaclotide 145 mcg capsule 145 mcg PO DAILY 11/13/21 06/07/23 (Linzess) diazepam 2 mg tablet 4 mg PO HS PRN 01/19/22 06/07/23 Previous Rx's Medication Instructions Recorded docusate sodium 100 mg capsule 100 mg PO BIDP PRN Constipation 12/03/21 #60 caps hydrocodone 5 mg-acetaminophen 325 1 tab PO Q6H PRN pain #14 tabs 08/27/22 mg tablet lisinopril 2.5 mg tablet 2.5 mg PO DAILY BP #30 tabs 09/14/22 gabapentin 300 mg capsule 300 mg PO TID PRN pain #90 caps 12/21/22 divalproex 250 mg tablet,delayed See Rx Instructions .Route 01/14/23 release .COMPLEX #90 tabs cholecalciferol (vitamin D3) 125 See Rx Instructions .Route 01/25/23 mcg (5,000 unit) capsule .COMPLEX #90 caps sucralfate 1 gram tablet See Rx Instructions .Route 03/22/23 .COMPLEX #120 tabs rosuvastatin 10 mg tablet See Rx Instructions .Route 04/14/23 .COMPLEX #90 tabs warfarin 3 mg tablet 3 mg PO DAILY Blood thinner #180 05/12/23 tabs levothyroxine 25 mcg tablet See Rx Instructions .Route 06/11/23 .COMPLEX #90 tabs cyclobenzaprine 5 mg tablet 5 mg PO TID PRN muscle spasm 5 06/18/23 days #15 tabs ibuprofen 800 mg tablet 800 mg PO TID PRN pain 7 days #20 06/18/23 tabs Allergies Allergy/AdvReac Type Severity Reaction Status Date / Time No Known Allergies Allergy Verified 06/07/23 11:52 [facility] Disclaimer: The information contained in this section may have been updated after the patient was seen, as this information can be updated by other users. 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 Musculoskeletal chest pain Pneumonia Supratherapeutic INR Surgical History History of cholecystectomy Family History Other Cancer Diabetes Social History Smoking Status: Never smoker second hand exposure: No alcohol intake: never substance use type: denies use current occupational status: retired Travel in the last 8 weeks: None household members: spouse housing: house current occupational exposures/hazards: No caffeine: Yes ROS Obtained: Yes All systems reviewed & no additional complaints except as documented Physical Exam General General appearance: alert Respiratory Respiratory exam: Present normal lung sounds bilaterally Cardiovascular Cardiovascular exam: Present regular rate Extremities Exam Extremities exam: Present other (Symmetric lower extremities no swelling, no erythema or soft tissue abnormalities. He has pain with compression of bilateral malleoli and distal tib-fib) Neurological Exam Neurological exam: Present alert and oriented X3 Medical Decision Making Ildefonso Inquiry Pt receiving controlled substance: No Vital Signs: 06/18/23 11:47 06/18/23 12:30 Temperature 97.5 F L Temperature Source Oral Pulse Rate 72 Pulse Rate [Right] 79 Respiratory Rate 18 Blood Pressure 153/79 H Blood Pressure [Left Arm] 166/88 H Blood Pressure Mean [Left Arm] 114 Blood Pressure Source [Left Arm] Automatic Cuff 02 Sat by Pulse Oximetry 94 L 93 L Oxygen Delivery Method Room Air Room Air Orders (Tests/Meds): ORDERS Category Date Time Status Ankle XR - Left minimum 3 Views [XR ankle LT min 3V] Exams 06/18/23 12:51 Completed Stat Foot XR left minimum 3 views [XR foot LT min 3V] Stat Exams 06/18/23 12:51 Completed Tibia/fibula XR left 2 views [XR tibia fibula LT 2V] Exams 06/18/23 12:51 Completed Stat Medical Decision Narrative: 77-year-old with localized musculoskeletal pain to the left distal tib-fib and bilateral malleoli that is only worsening with bearing weight. No pain without bearing weight. This is not consistent with a DVT he had a normal neurovascular exam as well not consistent with arterial insufficiency. Will get plain films and reassess. X-ray performed which I personally turbid shows no acute fracture or dislocation. There is a spur formation at the insertion of the Achilles tendon on reevaluation this is focally where he is tender. Clinically this is consistent with Achilles tendinopathy. He has been advised to follow-up with our patient account analyst or orthopedic surgeon and to discuss physical therapy take NSAIDs as needed for this as well. No other emergent medical condition notified. Critical Care Critical Care Time Critical Care Time: No
--- NOTE | 2023-06-18 13:03 | PC.NURSE ---
XR AT BEDSIDE
[2023-06-18 14:48] VITALS: BP 150/88; PULSE 68; RESP 16; TEMP 36.7; O2SAT 95
== END 2023-06-18 14:49 | disposition home or self-care (01) ==
PROVIDERS: Emergency Provider Student in an Organized Health Care Education/Training Program; PCP Family Medicine
DX: M25.572 Pain in left ankle and joints of left foot (principal); M76.62 Achilles tendinitis, left leg; I10 Essential (primary) hypertension; E03.9 Hypothyroidism, unspecified
CPT/HCPCS: 73590; 73610; 73630; 99284

== ENCOUNTER 2023-07-12 18:31 | Emergency (ER) | payer MEDICARE, OTHER, SELFPAY ==
[2023-07-12 18:31] VITALS: BP 154/78; PULSE 91; RESP 15; TEMP 36.7; O2SAT 95; BMI 22.4
[2023-07-12] MEDS: KETOROLAC 30MG/ML VIAL 30 MG IM (19:47)
--- NOTE | 2023-07-12 20:27 | HMH.EDGENADL ---
Discharge Plan Disposition Patient Disposition: Home, Self-Care Condition: Good Prescriptions Prescriptions: No Action Linzess 145 mcg capsule 145 mcg PO DAILY diazepam 2 mg tablet 4 mg PO HS PRN lisinopril 2.5 mg tablet 2.5 mg PO DAILY Qty: 30 5RF cholecalciferol (vitamin D3) 125 mcg (5,000 unit) capsule See Rx Instructions .ROUTE .COMPLEX Qty: 90 2RF Dose Instruction: Take 1 Capsule by mouth once daily. Rx Instructions: Take 1 Capsule by mouth once daily. warfarin 3 mg tablet 3 mg PO DAILY Qty: 180 3RF gabapentin 300 mg capsule 300 mg PO TID Qty: 90 2RF cyclobenzaprine 5 mg tablet 5 mg PO TID PRN (Reason: muscle spasm) 5 Days Qty: 15 0RF docusate sodium 100 mg capsule 100 mg PO BIDP PRN (Reason: Constipation) Qty: 60 3RF divalproex 250 mg tablet,delayed release (DR/EC) See Rx Instructions .ROUTE .COMPLEX Qty: 90 4RF Dose Instruction: TAKE 1 TABLET BY MOUTH 3 TIMES DAILY Rx Instructions: TAKE 1 TABLET BY MOUTH 3 TIMES DAILY sucralfate 1 gram tablet See Rx Instructions .ROUTE .COMPLEX Qty: 120 3RF Dose Instruction: Take 1 Tablet by mouth before meals and at bedtime. Rx Instructions: Take 1 Tablet by mouth before meals and at bedtime. rosuvastatin 10 mg tablet See Rx Instructions .ROUTE .COMPLEX Qty: 90 2RF Dose Instruction: Take 1 Tablet by mouth at bedtime for cholesterol. Rx Instructions: Take 1 Tablet by mouth at bedtime for cholesterol. levothyroxine 25 mcg tablet See Rx Instructions .ROUTE .COMPLEX Qty: 90 0RF Dose Instruction: Take 1 Tablet by mouth once daily for THYROID. Rx Instructions: Take 1 Tablet by mouth once daily for THYROID. hydrocodone-acetaminophen 5-325 mg tablet 1 tab PO Q6H PRN (Reason: pain) Qty: 14 0RF ibuprofen 800 mg tablet 800 mg PO TID PRN (Reason: pain) 7 Days Qty: 20 0RF Referrals Follow up/Referrals: Sherry Tidwell MD [Primary Care Provider] - See instructions Activity Restrictions/Add. Instructions Additional Instructions/Restrictions: Please follow-up with Dr. Rocha in the morning regarding your MRI. Please return to the as needed ER for any worsening or change in your symptoms. Clinical Impressions Clinical Impression: Sciatica Qualifiers: Laterality: left Qualified Code(s): M54.32 - Sciatica, left side Discharge ED Provider: Tosha Collazo General Adult HPI <SOBEIDA Boland - Last Filed: 07/12/23 22:22> General Chief complaint: PAIN Stated complaint: back,hip leg pain Time Seen by Provider: 07/12/23 18:41 Mode of Arrival: Ambulatory Source of Information: Patient Limitations: No Limitations Description of Symptoms (Recalled from ER Triage Doc. by RN): pt sent from dr sumner office for xray on back. pt reports symptoms ongoing for 3 weeks. pain located on left side. History of Present Illness HPI narrative: Patient presents initially with a chief complaint of sciatic pain. Patient saw his PCP and they both agreed that something needed to be done and so he he states that he was sent to the ER by Dr. Tidwell for x-rays. She gives a history of burning leg pain that radiates from his left-sided low back down his left leg. He denies loss of bladder or bowel function, loss of motor, however states that it hurts so bad to walk that he has to use a cane. This has been going on for more than a week. He was evaluated by Dr. Rocha and an MRI has been ordered and has been prior approved by his insurance but there is still seems to be a problem that we are unable to determine at this time. Related Data Home Medications Medication Instructions Recorded Confirmed linaclotide 145 mcg capsule 145 mcg PO DAILY 11/13/21 07/12/23 (Linzess) diazepam 2 mg tablet 4 mg PO HS PRN 01/19/22 07/12/23 Previous Rx's Medication Instructions Recorded docusate sodium 100 mg capsule 100 mg PO BIDP PRN Constipation 12/03/21 #60 caps hydrocodone 5 mg-acetaminophen 325 1 tab PO Q6H PRN pain #14 tabs 08/27/22 mg tablet lisinopril 2.5 mg tablet 2.5 mg PO DAILY BP #30 tabs 09/14/22 divalproex 250 mg tablet,delayed See Rx Instructions .Route 01/14/23 release .COMPLEX #90 tabs cholecalciferol (vitamin D3) 125 See Rx Instructions .Route 01/25/23 mcg (5,000 unit) capsule .COMPLEX #90 caps sucralfate 1 gram tablet See Rx Instructions .Route 03/22/23 .COMPLEX #120 tabs rosuvastatin 10 mg tablet See Rx Instructions .Route 04/14/23 .COMPLEX #90 tabs warfarin 3 mg tablet 3 mg PO DAILY Blood thinner #180 05/12/23 tabs levothyroxine 25 mcg tablet See Rx Instructions .Route 06/11/23 .COMPLEX #90 tabs ibuprofen 800 mg tablet 800 mg PO TID PRN pain 7 days #20 06/18/23 tabs cyclobenzaprine 5 mg tablet 5 mg PO TID PRN muscle spasm 5 07/12/23 days #15 tabs gabapentin 300 mg capsule 300 mg PO TID pain #90 caps 07/12/23 Allergies Allergy/AdvReac Type Severity Reaction Status Date / Time No Known Allergies Allergy Verified 07/12/23 14:15 PFS <SOBEIDA Boland - Last Filed: 07/12/23 22:22> PFS Disclaimer: The information contained in this section may have been updated after the patient was seen, as this information can be updated by other users. 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, bilateral [facility] current use of anticoagulant Musculoskeletal chest pain Pneumonia Supratherapeutic INR Surgical History History of cholecystectomy Family History Other Cancer Diabetes Social History Smoking Status: Never smoker second hand exposure: No alcohol intake: never substance use type: denies use current occupational status: retired Travel in the last 8 weeks: None household members: spouse housing: house current occupational exposures/hazards: No caffeine: Yes <SOBEIDA Boland - Last Filed: 07/12/23 22:22> ROS Obtained: Yes Systems reviewed as appropriate & no additional complaints except as documented Physical Exam <SOBEIDA Boland - Last Filed: 07/12/23 22:22> General General appearance: alert and in no apparent distress Head Head exam: atraumatic and normal inspection Eye Eye exam: Present normal appearance and PERRL ENT ENT exam: Present normal exam, normal oropharynx and mucous membranes moist Neck Neck exam: Present normal inspection, full ROM and other (No nuchal rigidity or meningismus signs); Absent lymphadenopathy Chest Chest inspection: Present normal inspection and symmetric chest wall rise Respiratory Respiratory exam: Present normal lung sounds bilaterally; Absent respiratory distress, wheezes, stridor or accessory muscle use Cardiovascular Cardiovascular exam: Present regular rate, normal rhythm and normal heart sounds Abdominal Exam Abdominal exam: Present soft and normal bowel sounds; Absent tenderness Extremities Exam Extremities exam: Present normal inspection and full ROM; Absent tenderness, joint swelling or calf tenderness Back Exam Back exam: Present normal inspection, full ROM and tenderness (Left-sided paraspinals down to the SI joint. Patient has an antalgic gait.); Absent muscle spasm Neurological Exam Neurological exam: Present alert, oriented X3 and CN II-XII intact Psychiatric Psychiatric exam: Present normal affect and normal mood Skin Skin exam: Present warm, dry and normal color Lymphatic Lymphatic Findings: no adenopathy Medical Decision Making <SOBEIDA Boland - Last Filed: 07/12/23 22:22> Ildefonso Inquiry Pt receiving controlled substance: No Vital Signs: 07/12/23 18:31 07/12/23 20:56 Temperature 98.1 F 98.1 F Temperature Source Oral Oral Pulse Rate 87 Pulse Rate [Left Radial] 91 H Respiratory Rate 15 16 Blood Pressure 145/73 H Blood Pressure [Right Arm] 154/78 H Blood Pressure Mean [Right Arm] 103 02 Sat by Pulse Oximetry 95 Oxygen Delivery Method Room Air Orders (Tests/Meds): ED MEDICATIONS Discontinued Medications Generic Name Dose Route Start Last Admin Trade Name Freq PRN Reason Stop Dose Admin Ketorolac Tromethamine 30 mg 07/12/23 19:44 07/12/23 19:47 Ketorolac 30mg/Ml Vial IM 07/12/23 19:45 30 mg ONCE ONE Administration Medical Decision Narrative: In summary patient is a 77-year-old male who presents to the emergency department for evaluation of sciatic pain. Patient is hemodynamically stable upon arrival, and afebrile. Physical exam is remarkable for sciatic symptoms with antalgic gait but no focal neurologic findings and no focal neurologic deficits. Patient has been diagnosed with sciatica and is being worked up for same by orthopedic surgery and an MRI as an outpatient has already been ordered and in the process of being completed. There seems to be a lack of insight on the behalf of the patient but not his daughter in regards to the symptoms and the workup required. There also appears to be a difference in communication from the orthopedist to his primary care physician on what type of imaging would benefit and whom. I offered multiple options including opiate analgesia, hospitalization, lidocaine patch or a trial of nonsteroidal medication for now. Patient elected to try the nonsteroidal medication and he felt he could manage himself at home and would return to the ER if he had any worsening or change in his symptoms. Patient's daughter verbalized her understanding of the same. <Tosha Collazo, DO - Last Filed: 07/12/23 23:04> Vital Signs: 07/12/23 18:31 07/12/23 20:56 Temperature 98.1 F 98.1 F Temperature Source Oral Oral Pulse Rate 87 Pulse Rate [Left Radial] 91 H Respiratory Rate 15 16 Blood Pressure 145/73 H Blood Pressure [Right Arm] 154/78 H Blood Pressure Mean [Right Arm] 103 02 Sat by Pulse Oximetry 95 Oxygen Delivery Method Room Air Orders (Tests/Meds): ED MEDICATIONS Discontinued Medications Generic Name Dose Route Start Last Admin Trade Name Freq PRN Reason Stop Dose Admin Ketorolac Tromethamine 30 mg 07/12/23 19:44 07/12/23 19:47 Ketorolac 30mg/Ml Vial IM 07/12/23 19:45 30 mg ONCE ONE Administration Medical Decision Narrative: In summary patient is a 77-year-old male who presents to the emergency department for evaluation of sciatic pain. Patient is hemodynamically stable upon arrival, and afebrile. Physical exam is remarkable for sciatic symptoms with antalgic gait but no focal neurologic findings and no focal neurologic deficits. Patient has been diagnosed with sciatica and is being worked up for same by orthopedic surgery and an MRI as an outpatient has already been ordered and in the process of being completed. There seems to be a lack of insight on the behalf of the patient but not his daughter in regards to the symptoms and the workup required. There also appears to be a difference in communication from the orthopedist to his primary care physician on what type of imaging would benefit and whom. I offered multiple options including opiate analgesia, hospitalization, lidocaine patch or a trial of nonsteroidal medication for now. Patient elected to try the nonsteroidal medication and he felt he could manage himself at home and would return to the ER if he had any worsening or change in his symptoms. Patient's daughter verbalized her understanding of the same. I was consulted by the [facility], and we discussed the complexity of the problems being addressed. I approved the treatment and management plan for this patient's care in the emergency department, thus performing a substantive portion of the medical decision making. No emergent indications for spine imaging, as patient has no alarm findings such as unintentional weight loss, neurologic symptoms, or other concerns. Patient did be appropriate for discharge with outpatient follow-up and outpatient imaging as already scheduled. Tosha Collazo, DO Critical Care <SOBEIDA Boland - Last Filed: 07/12/23 22:22> Critical Care Time Critical Care Time: No
[2023-07-12 20:56] VITALS: BP 145/73; PULSE 87; RESP 16; TEMP 36.7; O2SAT 95
== END 2023-07-12 20:57 | disposition home or self-care (01) ==
PROVIDERS: Emergency Provider Emergency Medicine; PCP Family Medicine
DX: M54.32 Sciatica, left side (principal); I10 Essential (primary) hypertension; E03.9 Hypothyroidism, unspecified; Z86.79 Personal history of other diseases of the circulatory system; Z79.01 Long term (current) use of anticoagulants
CPT/HCPCS: 96372; 99283

== ENCOUNTER 2023-07-16 12:04 | Emergency (ER) | payer MEDICARE, OTHER, SELFPAY ==
[2023-07-16 12:30] VITALS: BP 153/88; PULSE 96; RESP 18; TEMP 36.9; O2SAT 91; BMI 21.9
[2023-07-16 12:43] LABS: UTC Influenza A Antigen Negative (Negative)
[2023-07-16 12:44] LABS: UTC Influenza B Antigen Negative (Negative)
--- NOTE | 2023-07-16 12:51 | XR_ITS ---
PROCEDURE INFORMATION: Exam: XR Chest Exam date and time: 07/16/2023 12:53 PM Age: 77 years old Clinical indication: Cough TECHNIQUE: Imaging protocol: Radiologic exam of the chest. Views: 2 views. COMPARISON: CR XR CHEST 2V 11/16/2021 12:22 PM FINDINGS: Lungs: Unremarkable. No consolidation. Pleural spaces: Unremarkable. No pleural effusion. No pneumothorax. Heart/Mediastinum: Unremarkable. No cardiomegaly. Bones/joints: Thoracic spondylosis IMPRESSION: No evidence of acute cardiopulmonary disease.
--- NOTE | 2023-07-16 12:53 | PC.NURSE ---
Called RAD for xray
--- NOTE | 2023-07-16 13:03 | EXP.UTC ---
Discharge Plan Disposition Patient Disposition: Home, Self-Care Condition: Good Prescriptions Prescriptions: New oseltamivir [Tamiflu] 75 mg capsule 75 mg PO BID 5 Days Qty: 10 0RF No Action Linzess 145 mcg capsule 145 mcg PO DAILY diazepam 2 mg tablet 4 mg PO HS PRN lisinopril 2.5 mg tablet 2.5 mg PO DAILY Qty: 30 5RF cholecalciferol (vitamin D3) 125 mcg (5,000 unit) capsule See Rx Instructions .ROUTE .COMPLEX Qty: 90 2RF Dose Instruction: Take 1 Capsule by mouth once daily. Rx Instructions: Take 1 Capsule by mouth once daily. warfarin 3 mg tablet 3 mg PO DAILY Qty: 180 3RF gabapentin 300 mg capsule 300 mg PO TID Qty: 90 2RF cyclobenzaprine 5 mg tablet 5 mg PO TID PRN (Reason: muscle spasm) 5 Days Qty: 15 0RF docusate sodium 100 mg capsule 100 mg PO BIDP PRN (Reason: Constipation) Qty: 60 3RF divalproex 250 mg tablet,delayed release (DR/EC) See Rx Instructions .ROUTE .COMPLEX Qty: 90 4RF Dose Instruction: TAKE 1 TABLET BY MOUTH 3 TIMES DAILY Rx Instructions: TAKE 1 TABLET BY MOUTH 3 TIMES DAILY sucralfate 1 gram tablet See Rx Instructions .ROUTE .COMPLEX Qty: 120 3RF Dose Instruction: Take 1 Tablet by mouth before meals and at bedtime. Rx Instructions: Take 1 Tablet by mouth before meals and at bedtime. rosuvastatin 10 mg tablet See Rx Instructions .ROUTE .COMPLEX Qty: 90 2RF Dose Instruction: Take 1 Tablet by mouth at bedtime for cholesterol. Rx Instructions: Take 1 Tablet by mouth at bedtime for cholesterol. levothyroxine 25 mcg tablet See Rx Instructions .ROUTE .COMPLEX Qty: 90 0RF Dose Instruction: Take 1 Tablet by mouth once daily for THYROID. Rx Instructions: Take 1 Tablet by mouth once daily for THYROID. hydrocodone-acetaminophen 5-325 mg tablet 1 tab PO Q6H PRN (Reason: pain) Qty: 14 0RF ibuprofen 800 mg tablet 800 mg PO TID PRN (Reason: pain) 7 Days Qty: 20 0RF Referrals Follow up/Referrals: Sherry Tidwell MD [Primary Care Provider] - See instructions Activity Restrictions/Add. Instructions Additional Instructions/Restrictions: No sign of a bacterial infection. Likely viral. Viruses can take 7-14 days to run their course. Nasal saline and bulb syringe or nose Deborah to remove nasal drainage to help with nasal congestion. Hard to eat, drink, sleep with nasal congestion so important to keep this cleaned out. Monitor temp. Tylenol or Motrin as needed for pain or fever Encourage fluids, water, Gatorade, Powerade, Pedialyte if /toddler/child Warm salt water gargles Warm fluids Sore throat lozenges Sleep elevated Humidifier/vaporizer Follow-up immediately for new or worsening symptoms or no noticeable improvement over the next 48-72 hours. Clinical Impressions Clinical Impression: Exposure to influenza, Upper respiratory disease Instructions Patient Instructions: DI for Viral Upper Respiratory Infection -- Adult Discharge ED Provider: Hosea ([facility]Lexie [place] HPI General Stated complaint: flu expsoure fever 100.4 ba cough Mode of Arrival: Ambulatory Source of Information: Patient Limitations: No Limitations Time Seen by Provider: 07/16/23 13:03 Description of Symptoms (Recalled from Triage Doc. by RN): Pt's symptoms are fever, cough, and body aches. HEENT Symptoms (Recalled from RN notes): Yes Resp Symptoms (Recalled from RN notes): No Skin Symptoms (Recalled from RN notes): No MS Symptoms (Recalled from RN notes): No Functional Status (Recalled from RN notes): n/a History of Present Illness Provider Complaint: 77 yr old male presents for c/o fever, cough, and body aches. family all have flu Related Data Home Medications Medication Instructions Recorded Confirmed linaclotide 145 mcg capsule 145 mcg PO DAILY 11/13/21 07/12/23 (Linzess) diazepam 2 mg tablet 4 mg PO HS PRN 01/19/22 07/12/23 Previous Rx's Medication Instructions Recorded docusate sodium 100 mg capsule 100 mg PO BIDP PRN Constipation 12/03/21 #60 caps hydrocodone 5 mg-acetaminophen 325 1 tab PO Q6H PRN pain #14 tabs 08/27/22 mg tablet lisinopril 2.5 mg tablet 2.5 mg PO DAILY BP #30 tabs 09/14/22 divalproex 250 mg tablet,delayed See Rx Instructions .Route 01/14/23 release .COMPLEX #90 tabs cholecalciferol (vitamin D3) 125 See Rx Instructions .Route 01/25/23 mcg (5,000 unit) capsule .COMPLEX #90 caps sucralfate 1 gram tablet See Rx Instructions .Route 03/22/23 .COMPLEX #120 tabs rosuvastatin 10 mg tablet See Rx Instructions .Route 04/14/23 .COMPLEX #90 tabs warfarin 3 mg tablet 3 mg PO DAILY Blood thinner #180 05/12/23 tabs levothyroxine 25 mcg tablet See Rx Instructions .Route 06/11/23 .COMPLEX #90 tabs ibuprofen 800 mg tablet 800 mg PO TID PRN pain 7 days #20 06/18/23 tabs cyclobenzaprine 5 mg tablet 5 mg PO TID PRN muscle spasm 5 07/12/23 days #15 tabs gabapentin 300 mg capsule 300 mg PO TID pain #90 caps 07/12/23 oseltamivir 75 mg capsule (Tamiflu) 75 mg PO BID 5 days #10 caps 07/16/23 Allergies Allergy/AdvReac Type Severity Reaction Status Date / Time No Known Allergies Allergy Verified 07/12/23 14:15 Worker's Comp Is this a Worker's Comp case?: No [facility] Disclaimer: The information contained in this section may have been updated after the patient was seen, as this information can be updated by other users. 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) Smoking Status: Never smoker second hand exposure: No alcohol intake: never substance use type: denies use current occupational status: retired Travel in the last 8 weeks: None household members: spouse housing: house current occupational exposures/hazards: No caffeine: Yes ROS Obtained: Yes All systems reviewed & no additional complaints except as documented Constitutional Constitutional: Reports system reviewed and no additional complaints, except as documented, Reports as per HPI, Reports body ache and Reports fever(s) Eyes Eyes: Reports system reviewed and no additional complaints, except as documented ENT Ears, Nose, Mouth, and Throat: Reports system reviewed and no additional complaints, except as documented and Reports as per HPI Cardiovascular Cardiovascular: Reports system reviewed and no additional complaints, except as documented Respiratory Respiratory: Reports system reviewed and no additional complaints, except as documented, Reports as per HPI and Reports cough Integumentary/Breasts Skin/Breast: Reports system reviewed and no additional complaints, except as documented Neurologic Neurologic: Reports system reviewed and no additional complaints, except as documented Hematologic/Lymphatic Henatologic/Lymphatic: Reports system reviewed and no additional complaints, except as documented Physical Exam General General appearance: alert and in no apparent distress Head Head exam: atraumatic Eye Eye exam: Present normal appearance and PERRL ENT ENT exam: Present normal exam, normal oropharynx, mucous membranes moist and TM's normal bilaterally Respiratory Respiratory exam: Present normal lung sounds bilaterally and respiratory distress Cardiovascular Cardiovascular exam: Present regular rate and normal rhythm Neurological Exam Neurological exam: Present alert and oriented X3 Skin Skin exam: Present warm and intact Medical Decision Making Medical Records Medical records reviewed: Yes I reviewed the patient's medical records. Ildefonso Inquiry Pt receiving controlled substance: No Ildefonso was queried for this patient: No Vital Signs: 07/16/23 12:30 Temperature 98.4 F Temperature Source Oral Pulse Rate [Right Radial] 96 H Respiratory Rate 18 Blood Pressure [Right Arm] 153/88 H Blood Pressure Mean [Right Arm] 109 Blood Pressure Source [Right Arm] Automatic Cuff Blood Pressure Position [Right Arm] Sitting 02 Sat by Pulse Oximetry 91 L Oxygen Delivery Method Room Air Lab Data Lab results reviewed: Yes I reviewed the patient's lab results. Lab Results 07/16/23 12:24: Influenza Type A Ag Negative, Influenza Type B Ag Negative Orders (Tests/Meds): ORDERS Category Date Time Status Chest XR 2 view (NOT portable) [XR chest 2V] Stat Exams 07/16/23 12:51 Ordered Radiology Data #1: Image(s): Chest Image Reviewed: Yes I reviewed the patient's radiology results Preliminary Findings: Normal/NAD
[2023-07-16 13:36] VITALS: BP 153/88; PULSE 96; RESP 18; TEMP 36.9; O2SAT 92
== END 2023-07-16 13:36 | disposition home or self-care (01) ==
PROVIDERS: Emergency Provider Nurse Practitioner Family; PCP Family Medicine
DX: R05.9 Cough, unspecified (principal); R50.9 Fever, unspecified; J06.9 Acute upper respiratory infection, unspecified; M79.18 Myalgia, other site; I10 Essential (primary) hypertension; E03.9 Hypothyroidism, unspecified; Z20.828 Contact with and (suspected) exposure to other viral communicable diseases; B34.9 Viral infection, unspecified
CPT/HCPCS: 71046; 87804; 99212; 99214; G0463

== ENCOUNTER 2023-07-26 07:25 | Outpatient (CLI) | payer MEDICARE, SELFPAY ==
--- NOTE | 2023-07-26 07:25 | MR_ITS ---
FINAL REPORT CLINICAL HISTORY: Lumbar Spine Pain. left leg pain, numbness and tingling COMPARISON: None FINDINGS: Multiplanar MR imaging of the lumbar spine was performed without contrast. On the sagittal T2-weighted images, disc degeneration is seen throughout. There are multilevel moderate and severe endplate degenerative changes present. Dextroscoliosis is present. There is mild retrolisthesis of L1 on L2, L2 on L3, and L3 on L4. There is no evidence of fracture. No bony mass is identified. The conus has an unremarkable appearance. T11-12: An annular bulge is present with facet osteoarthropathy and osteophytes. No significant canal stenosis or neural foraminal narrowing is present. T12-L1: An annular bulge is present with facet osteoarthropathy and osteophytes. No significant canal stenosis or neural foraminal narrowing is present. L1-2: An annular bulge is present with facet osteoarthropathy and osteophytes. There is moderate bilateral neural foraminal narrowing. L2-3: An annular bulge is present with facet osteoarthropathy and osteophytes. There is moderate right and mild left neural foraminal narrowing. L3-4: An annular bulge is present with facet osteoarthropathy and osteophytes. There is mild right and moderate left neural foraminal narrowing. L4-5: An annular bulge is present with facet osteoarthropathy and osteophytes. There is a left foraminal disc protrusion which impinges on the left L4 nerve root in the foramen, and likely also the L5 nerve root. There is moderate right and severe left neural foraminal narrowing. L5-S1: An annular bulge is present with facet osteoarthropathy and osteophytes. There is severe right and mild left neural foraminal narrowing. IMPRESSION: Multilevel degenerative disc disease and spondylosis as described, most severe at the L4-5 level. Reviewed, Interpreted and Dictated by Geoffrey Bentley III, MD Transcribed by Hilda Morales Authenticated and [facility]
== END 2023-07-26 23:59 ==
LOC: RAD 07:25
PROVIDERS: PCP Family Medicine; Visit Provider Orthopaedic Surgery
DX: M54.42 Lumbago with sciatica, left side (principal)
CPT/HCPCS: 72148; 76376

== ENCOUNTER 2023-09-17 13:51 | Emergency (ER) | payer MEDICARE, SELFPAY ==
[2023-09-17] VITALS (9 sets, daily range): BP systolic 116–168; BP diastolic 73–98; PULSE 75–104; RESP 16–20; TEMP 36.7; O2SAT 88–95; BMI 21.5
--- NOTE | 2023-09-17 14:08 | CT_ITS ---
PROCEDURE INFORMATION: Exam: CTA Neck With Contrast Exam date and time: 09/17/2023 2:48 PM Age: 77 years old Clinical indication: Pain; Other: Neck; Additional info: Severe neck pn following chriopractor manipulation TECHNIQUE: Imaging protocol: Computed tomographic angiography of the neck with contrast. Exam focused on the cervical segments of the vasculature. 3D rendering (Not supervised by radiologist): MIP and/or 3D reconstructed images were created by the technologist. Radiation optimization: All CT scans at this facility use at least one of these dose optimization techniques: automated exposure control; mA and/or kV adjustment per patient size (includes targeted exams where dose is matched to clinical indication); or iterative reconstruction. Contrast material: ISOVUE 370; Contrast volume: 100 ml; Contrast route: INTRAVENOUS (IV); COMPARISON: CT CERVICAL SPINE WO CON 08/03/2021 9:28 PM FINDINGS: Right common carotid artery: No stenosis. No dissection or occlusion. Right internal carotid artery: No stenosis of the extracranial segment. No dissection or occlusion. Right external carotid artery: No occlusion or stenosis of the origin. Left common carotid artery: No stenosis. No dissection or occlusion. Left internal carotid artery: No stenosis of the extracranial segment. No dissection or occlusion. Left external carotid artery: No occlusion or stenosis of the origin. Right vertebral artery: No stenosis. No dissection or occlusion. Left vertebral artery: No stenosis. No dissection or occlusion. Soft tissues: Normal. No significant soft tissue swelling. Bones/joints: There are diffuse degenerative changes of the cervical spine. No acute fracture is visualized. IMPRESSION: No acute arterial abnormality identified in the neck. REFERENCES: NASCET CRITERIA. The degree of stenosis in the cervical segment of the internal carotid artery is based on NASCET criteria. Normal is no stenosis. Mild is less than 50% stenosis. Moderate is 50-69% stenosis. Severe is 70% to 99% stenosis. Total occlusion is no detectable patent lumen.
--- NOTE | 2023-09-17 14:08 | CT_ITS ---
PROCEDURE INFORMATION: Exam: CTA Head With Contrast, Arteriography Exam date and time: 09/17/2023 2:48 PM Age: 77 years old Clinical indication: Pain; Other: Neck; Additional info: Severe neck pn following chriopractor manipulation TECHNIQUE: Imaging protocol: Computed tomographic angiography of the head with contrast. Exam focused on the arteries. 3D rendering (Not supervised by radiologist): MIP and/or 3D reconstructed images were created by the technologist. Radiation optimization: All CT scans at this facility use at least one of these dose optimization techniques: automated exposure control; mA and/or kV adjustment per patient size (includes targeted exams where dose is matched to clinical indication); or iterative reconstruction. Contrast material: ISOVUE 370; Contrast volume: 100 ml; Contrast route: INTRAVENOUS (IV); COMPARISON: CT HEAD/BRAIN WO CON 09/17/2023 2:42 PM FINDINGS: ANTERIOR CIRCULATION: Right internal carotid artery: Calcified plaque causes moderate stenosis of the right intracranial ICA. Right middle cerebral artery: No occlusion or significant stenosis. No aneurysm. Right anterior cerebral artery: No occlusion or significant stenosis. No aneurysm. Left internal carotid artery: Calcified plaque causes moderate stenosis of the left intracranial ICA. Left middle cerebral artery: No occlusion or significant stenosis. No aneurysm. Left anterior cerebral artery: No occlusion or significant stenosis. No aneurysm. POSTERIOR CIRCULATION: Right vertebral artery: No occlusion or significant stenosis. No aneurysm. Left vertebral artery: There is moderate stenosis of the left vertebral artery at the level of the foramen magnum. Basilar artery: No occlusion or significant stenosis. No aneurysm. Right posterior cerebral artery: No occlusion or significant stenosis. No aneurysm. Left posterior cerebral artery: No occlusion or significant stenosis. No aneurysm. Brain: Areas of chronic encephalomalacia are seen on the left. Cerebral ventricles: No ventriculomegaly. Bones/joints: Unremarkable. No acute fracture. Soft tissues: Unremarkable. IMPRESSION: 1. 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 2. 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
--- NOTE | 2023-09-17 14:08 | CT_ITS ---
PROCEDURE INFORMATION: Exam: CT Head Without Contrast Exam date and time: 09/17/2023 2:42 PM Age: 77 years old Clinical indication: Pain; Other: Neck; Additional info: Severe neck pn following chriopractor manipulation TECHNIQUE: Imaging protocol: Computed tomography of the head without contrast. Radiation optimization: All CT scans at this facility use at least one of these dose optimization techniques: automated exposure control; mA and/or kV adjustment per patient size (includes targeted exams where dose is matched to clinical indication); or iterative reconstruction. COMPARISON: CT HEAD/BRAIN WO CON 08/03/2021 9:28 PM FINDINGS: Brain: There is age-appropriate cerebral atrophy. Moderate changes of chronic small vessel ischemia within the cerebral white matter regions bilaterally. No acute infarct or hemorrhage. 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 Cerebral ventricles: No ventriculomegaly. Paranasal sinuses: Minor chronic bilateral maxillary sinus disease. No fluid levels. Mastoid air cells: Visualized mastoid air cells are well aerated. Bones: Unremarkable. No acute fracture. Soft tissues: Unremarkable. IMPRESSION: No acute intracranial abnormality.
--- NOTE | 2023-09-17 14:11 | ED_ITS ---
Discharge Plan Disposition Patient Disposition: Home, Self-Care Prescriptions Prescriptions: New methocarbamol 500 mg tablet 1,000 mg PO Q8H PRN (Reason: muscle spasm) Qty: 90 0RF Rx Instructions: Do not combine with cyclobenzaprine No Action Linzess 145 mcg capsule 145 mcg PO DAILY diazepam 2 mg tablet 4 mg PO HS PRN lisinopril 2.5 mg tablet 2.5 mg PO DAILY Qty: 30 5RF cholecalciferol (vitamin D3) 125 mcg (5,000 unit) capsule See Rx Instructions .ROUTE .COMPLEX Qty: 90 2RF Dose Instruction: Take 1 Capsule by mouth once daily. Rx Instructions: Take 1 Capsule by mouth once daily. warfarin 3 mg tablet 3 mg PO DAILY Qty: 180 3RF gabapentin 300 mg capsule 300 mg PO TID Qty: 90 2RF cyclobenzaprine 5 mg tablet 5 mg PO TID PRN (Reason: muscle spasm) 5 Days Qty: 15 0RF sucralfate 1 gram tablet See Rx Instructions .ROUTE .COMPLEX Qty: 120 3RF Dose Instruction: Take 1 Tablet by mouth before meals and at bedtime. Rx Instructions: Take 1 Tablet by mouth before meals and at bedtime. rosuvastatin 10 mg tablet See Rx Instructions .ROUTE .COMPLEX Qty: 90 2RF Dose Instruction: Take 1 Tablet by mouth at bedtime for cholesterol. Rx Instructions: Take 1 Tablet by mouth at bedtime for cholesterol. levothyroxine 25 mcg tablet See Rx Instructions .ROUTE .COMPLEX Qty: 90 0RF Dose Instruction: Take 1 Tablet by mouth once daily for THYROID. Rx Instructions: Take 1 Tablet by mouth once daily for THYROID. hydrocodone-acetaminophen 5-325 mg tablet 1 tab PO Q6H PRN (Reason: pain) Qty: 20 0RF divalproex 250 mg tablet,delayed release (DR/EC) See Rx Instructions .ROUTE .COMPLEX Qty: 90 4RF Dose Instruction: TAKE 1 TABLET BY MOUTH 3 TIMES DAILY Rx Instructions: TAKE 1 TABLET BY MOUTH 3 TIMES DAILY docusate sodium 100 mg capsule See Rx Instructions .ROUTE .COMPLEX Qty: 60 3RF Dose Instruction: Take 1 Capsule by mouth twice daily as needed for constipation. Rx Instructions: Take 1 Capsule by mouth twice daily as needed for constipation. ibuprofen 800 mg tablet 800 mg PO TID PRN (Reason: pain) 7 Days Qty: 20 0RF Referrals Follow up/Referrals: Sherry Tidwell MD [Primary Care Provider] - See instructions Activity Restrictions/Add. Instructions Additional Instructions/Restrictions: At this time it was felt you are safe to be discharged home. If new or worsening symptoms please do not hesitate to return the emergency department. If symptoms persist please follow-up with your family doctor as you are able. Please take your medications as prescribed. Clinical Impressions Clinical Impression: Injury of neck Instructions Patient Instructions: DI for Neck Pain Discharge ED Provider: Tino Agosto General Adult HPI <Fritz Klein MD - Last Filed: 09/17/23 14:14> General Chief complaint: Neck Pain/Injury Stated complaint: pain in back of neck Time Seen by Provider: 09/17/23 14:01 Mode of Arrival: Wheelchair Source of Information: Patient Limitations: No Limitations Description of Symptoms (Recalled from ER Triage Doc. by RN): neck pain. chiropractor popped it on History of Present Illness HPI narrative: Patient is a 77-year-old male presenting today with severe neck pain following a chiropractic cervical manipulation on . States that he was laying on the lateral aspect and that a downward force was placed quickly onto his neck and he felt a pop. Patient states that he did not have any severe immediate pain or any neurologic symptoms. States he is having problems moving his entire body largely secondary to pain not due to weakness. Pain is localized to the midline in the back of the neck. Denies any numbness weakness tingling in the arms or legs changes in vision coordination etc. Related Data Home Medications Medication Instructions Recorded Confirmed linaclotide 145 mcg capsule 145 mcg PO DAILY 11/13/21 09/06/23 (Linzess) diazepam 2 mg tablet 4 mg PO HS PRN 01/19/22 09/06/23 Previous Rx's Medication Instructions Recorded lisinopril 2.5 mg tablet 2.5 mg PO DAILY BP #30 tabs 09/14/22 cholecalciferol (vitamin D3) 125 See Rx Instructions .Route 01/25/23 mcg (5,000 unit) capsule .COMPLEX #90 caps sucralfate 1 gram tablet See Rx Instructions .Route 03/22/23 .COMPLEX #120 tabs rosuvastatin 10 mg tablet See Rx Instructions .Route 04/14/23 .COMPLEX #90 tabs warfarin 3 mg tablet 3 mg PO DAILY Blood thinner #180 05/12/23 tabs levothyroxine 25 mcg tablet See Rx Instructions .Route 06/11/23 .COMPLEX #90 tabs ibuprofen 800 mg tablet 800 mg PO TID PRN pain 7 days #20 06/18/23 tabs cyclobenzaprine 5 mg tablet 5 mg PO TID PRN muscle spasm 5 07/12/23 days #15 tabs gabapentin 300 mg capsule 300 mg PO TID pain #90 caps 07/12/23 hydrocodone 5 mg-acetaminophen 325 1 tab PO Q6H PRN pain #20 tabs 08/04/23 mg tablet divalproex 250 mg tablet,delayed See Rx Instructions .Route 09/14/23 release .COMPLEX #90 tabs docusate sodium 100 mg capsule See Rx Instructions .Route 09/14/23 .COMPLEX #60 caps methocarbamol 500 mg tablet 1,000 mg (2 x 500 mg) PO Q8H PRN 09/17/23 muscle spasm #90 tabs Allergies Allergy/AdvReac Type Severity Reaction Status Date / Time No Known Allergies Allergy Verified 09/06/23 12:18 [facility] <Fritz Klein MD - Last Filed: 09/17/23 14:14> [facility] Disclaimer: The information contained in this section may have been updated after the patient was seen, as this information can be updated by other users. 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 Musculoskeletal chest pain Gallbladder mass Anxiety Hypertension Hypothyroidism Pneumonia Surgical History History of cholecystectomy Family History Other Cancer Diabetes Social History Smoking Status: Never smoker second hand exposure: No alcohol intake: never substance use type: denies use current occupational status: retired Travel in the last 8 weeks: None household members: spouse housing: house current occupational exposures/hazards: No caffeine: Yes <Fritz Klein MD - Last Filed: 09/17/23 14:14> ROS Obtained: Yes All systems reviewed & no additional complaints except as documented Physical Exam <Fritz Klein MD - Last Filed: 09/17/23 14:14> General General appearance: alert and in no apparent distress Neck Neck exam: Present tenderness (Significant midline cervical spine tenderness no soft tissue swelling bruits hematomas etc.) Respiratory Respiratory exam: Present normal lung sounds bilaterally Cardiovascular Cardiovascular exam: Present regular rate and normal rhythm Neurological Exam Neurological exam: Present alert, oriented X3, CN II-XII intact and normal gait; Absent motor sensory deficit Medical Decision Making <Fritz Klein MD - Last Filed: 09/17/23 14:14> [place] Inquiry Pt receiving controlled substance: No Vital Signs: 09/17/23 13:52 09/17/23 13:58 09/17/23 14:01 Temperature 98.1 F Temperature Source Oral Pulse Rate 104 H 100 H Pulse Rate [Right] 81 Respiratory Rate 20 Blood Pressure 159/98 H 148/97 H Blood Pressure [Right Arm] 168/89 H Blood Pressure Mean Blood Pressure Mean [Right Arm] 115 02 Sat by Pulse Oximetry 90 L 88 L 90 L Oxygen Delivery Method Room Air 09/17/23 14:30 09/17/23 15:13 09/17/23 15:30 Temperature Temperature Source Pulse Rate 86 80 75 Pulse Rate [Right] Respiratory Rate Blood Pressure 148/78 H 132/75 138/75 Blood Pressure [Right Arm] Blood Pressure Mean 96 Blood Pressure Mean [Right Arm] 02 Sat by Pulse Oximetry 91 L 91 L 88 L Oxygen Delivery Method Room Air Room Air 09/17/23 16:00 Temperature Temperature Source Pulse Rate 86 Pulse Rate [Right] Respiratory Rate Blood Pressure 141/86 H Blood Pressure [Right Arm] Blood Pressure Mean Blood Pressure Mean [Right Arm] 02 Sat by Pulse Oximetry 95 Oxygen Delivery Method Room Air Lab Data Lab Results 09/17/23 13:58: WBC 10.5, RBC 5.34, Hgb 17.1, Hct 51.3, MCV 96.1 H, MCH 32.0 H, MCHC 33.3, RDW 14.5, Plt Count 186, MPV 7.6, Neut % (Auto) 66.5, Lymph % (Auto) 24.0, [place] % (Auto) 7.7, Eos % (Auto) 1.2, Baso % (Auto) 0.5, Neut # (Auto) 7.0, Lymph # (Auto) 2.5, [place] # (Auto) 0.8, Eos # (Auto) 0.1, Baso # (Auto) 0.1, PT 14.4 H, INR 1.36 H, APTT 27.3, Sodium 138, Potassium 4.2, Chloride 106, Carbon Dioxide 23, Anion Gap 13.2, BUN 16, Creatinine 0.90, Estimated Creat Clear 65, Estimated GFR 81, Est GFR ( Amer) 98, Glucose 111 H, Calcium 10.0, Total Bilirubin 1.7 H, AST 50, ALT 53, Alkaline Phosphatase 76, Total Protein 8.4 H D, Albumin 4.6, Globulin 3.8 H, Albumin/Globulin Ratio 1.2 09/17/23 13:58 09/17/23 13:58 Orders (Tests/Meds): ED MEDICATIONS Generic Name Dose Route Start Last Admin Trade Name Freq PRN Reason Stop Dose Admin Sodium Chloride 10 ml 09/17/23 14:58 09/17/23 14:59 Sodium Chloride 0.9% 10ml Syr (Rad Only) IV 10/17/23 14:57 10 ml NEEDED PRN Administration Maintain IV Site Discontinued Medications Generic Name Dose Route Start Last Admin Trade Name Freq PRN Reason Stop Dose Admin Lactated Ringer's 500 mls @ 999 mls/hr 09/17/23 14:15 09/17/23 14:13 Lactated Ringer's 1000 Ml Bag IV 09/17/23 14:45 999 mls/hr .Q31M TARA Administration Iopamidol 100 ml 09/17/23 14:58 09/17/23 14:59 Iopamidol-370 (76%);100ml Bottle IV 09/17/23 14:59 100 ml ONCE ONE Administration Morphine Sulfate 2 mg 09/17/23 14:08 09/17/23 14:13 Morphine 4mg/Ml Syringe IV 09/17/23 14:09 2 mg ONCE ONE Administration Sodium Chloride 50 ml 09/17/23 14:58 09/17/23 14:59 0.9 % Sodium Chloride 50 Ml Vial IV 09/17/23 14:59 50 ml ONCE ONE Administration ORDERS Category Date Time Status CT angio head Stat Cat Scan 09/17/23 14:[address] angio neck Stat Cat Scan 09/17/23 14:[address] head/brain wo con Stat Cat Scan 09/17/23 14:08 Completed CBC w/Auto Diff [Complete Blood Count Auto Diff] Stat Lab 09/17/23 13:58 Completed CMP [Comprehensive Metabolic Panel] Stat Lab 09/17/23 13:58 Completed PT/PTT Stat Lab 09/17/23 13:58 Completed Medical Decision Narrative: 77-year-old male presents today with localized neck pain in the midline following the cervical spine manipulation from a chiropractic visit on of this week. He has an objectively normal neurologic exam however given his significant amount of pain and mechanism we will get angiography imaging of the head and neck to rule out any type of vascular injury. CT scans are pending. Patient is on Coumadin therefore will avoid NSAID medications in this particular patient and administer morphine and IV fluids and will reassess. Care will be transitioned to Dr. Pepe Agosto for final evaluation and management of this patient. <Tino Agosto MD - Last Filed: 09/17/23 16:38> Vital Signs: 09/17/23 13:52 09/17/23 13:58 09/17/23 14:01 Temperature 98.1 F Temperature Source Oral Pulse Rate 104 H 100 H Pulse Rate [Right] 81 Respiratory Rate 20 Blood Pressure 159/98 H 148/97 H Blood Pressure [Right Arm] 168/89 H Blood Pressure Mean Blood Pressure Mean [Right Arm] 115 02 Sat by Pulse Oximetry 90 L 88 L 90 L Oxygen Delivery Method Room Air 09/17/23 14:30 09/17/23 15:13 09/17/23 15:30 Temperature Temperature Source Pulse Rate 86 80 75 Pulse Rate [Right] Respiratory Rate Blood Pressure 148/78 H 132/75 138/75 Blood Pressure [Right Arm] Blood Pressure Mean 96 Blood Pressure Mean [Right Arm] 02 Sat by Pulse Oximetry 91 L 91 L 88 L Oxygen Delivery Method Room Air Room Air 09/17/23 16:00 Temperature Temperature Source Pulse Rate 86 Pulse Rate [Right] Respiratory Rate Blood Pressure 141/86 H Blood Pressure [Right Arm] Blood Pressure Mean Blood Pressure Mean [Right Arm] 02 Sat by Pulse Oximetry 95 Oxygen Delivery Method Room Air Lab Data Lab Results 09/17/23 13:58: WBC 10.5, RBC 5.34, Hgb 17.1, Hct 51.3, MCV 96.1 H, MCH 32.0 H, MCHC 33.3, RDW 14.5, Plt Count 186, MPV 7.6, Neut % (Auto) 66.5, Lymph % (Auto) 24.0, [place] % (Auto) 7.7, Eos % (Auto) 1.2, Baso % (Auto) 0.5, Neut # (Auto) 7.0, Lymph # (Auto) 2.5, [place] # (Auto) 0.8, Eos # (Auto) 0.1, Baso # (Auto) 0.1, PT 14.4 H, INR 1.36 H, APTT 27.3, Sodium 138, Potassium 4.2, Chloride 106, Carbon Dioxide 23, Anion Gap 13.2, BUN 16, Creatinine 0.90, Estimated Creat Clear 65, Estimated GFR 81, Est GFR ( Amer) 98, Glucose 111 H, Calcium 10.0, Total Bilirubin 1.7 H, AST 50, ALT 53, Alkaline Phosphatase 76, Total Protein 8.4 H D, Albumin 4.6, Globulin 3.8 H, Albumin/Globulin Ratio 1.2 Orders (Tests/Meds): ED MEDICATIONS Generic Name Dose Route Start Last Admin Trade Name Freq PRN Reason Stop Dose Admin Sodium Chloride 10 ml 09/17/23 14:58 09/17/23 14:59 Sodium Chloride 0.9% 10ml Syr (Rad Only) IV 10/17/23 14:57 10 ml NEEDED PRN Administration Maintain IV Site Discontinued Medications Generic Name Dose Route Start Last Admin Trade Name Freq PRN Reason Stop Dose Admin Lactated Ringer's 500 mls @ 999 mls/hr 09/17/23 14:15 09/17/23 14:13 Lactated Ringer's 1000 Ml Bag IV 09/17/23 14:45 999 mls/hr .Q31M TARA Administration Iopamidol 100 ml 09/17/23 14:58 09/17/23 14:59 Iopamidol-370 (76%);100ml Bottle IV 09/17/23 14:59 100 ml ONCE ONE Administration Morphine Sulfate 2 mg 09/17/23 14:08 09/17/23 14:13 Morphine 4mg/Ml Syringe IV 09/17/23 14:09 2 mg ONCE ONE Administration Sodium Chloride 50 ml 09/17/23 14:58 09/17/23 14:59 0.9 % Sodium Chloride 50 Ml Vial IV 09/17/23 14:59 50 ml ONCE ONE Administration ORDERS Category Date Time Status CT angio head Stat Cat Scan 09/17/23 14:[address] angio neck Stat Cat Scan 09/17/23 14:[address] head/brain wo con Stat Cat Scan 09/17/23 14:08 Completed CBC w/Auto Diff [Complete Blood Count Auto Diff] Stat Lab 09/17/23 13:58 Completed CMP [Comprehensive Metabolic Panel] Stat Lab 09/17/23 13:58 Completed PT/PTT Stat Lab 09/17/23 13:58 Completed Medical Decision Narrative: 77-year-old male presents today with localized neck pain in the midline following the cervical spine manipulation from a chiropractic visit on of this week. He has an objectively normal neurologic exam however given his significant amount of pain and mechanism we will get angiography imaging of the head and neck to rule out any type of vascular injury. CT scans are pending. Patient is on Coumadin therefore will avoid NSAID medications in this particular patient and administer morphine and IV fluids and will reassess. Care will be transitioned to Dr. Pepe Agosto for final evaluation and management of this patient. Tino Agosto: Upon assumption of care patient was hemodynamically stable. Workup reviewed by me, hematologic labs are nonactionable. CT imaging no acute intracranial abnormality or evidence of dissection. There is some stenosis of vessels which is noncritical and nonactionable at this time. Upon repeat evaluation patient was on oxygen after receiving morphine which was turned off, patient maintained oxygen saturation greater than 88%, had no respiratory complaints. Patient was given a dose of Robaxin for muscle relaxation will be discharged with a course of Robaxin was given return precautions. Critical Care <Fritz Klein MD - Last Filed: 09/17/23 14:14> Critical Care Time Critical Care Time: No
[2023-09-17] MEDS: LACTATED RINGERS 1000ML 500 ML 999 ML IV (14:13)
[2023-09-17] MEDS: MORPHINE 4MG/ML SYRINGE 2 MG IV (14:13)
[2023-09-17 14:21] LABS: Basophils # 0.1 K/mm3 (0-0.2); Basophils % 0.5 % (0.1-2.0); Eosinophils # 0.1 K/mm3 (0.0-0.4); Eosinophils % 1.2 % (0.1-12.0); Hematocrit 51.3 % (42.0-52.0); Hemoglobin 17.1 g/dL (14.1-18.0); Lymphocytes # 2.5 K/mm3 (0.7-4.5); Mean Corpuscular HGB Conc 33.3 g/dL (31.8-35.4); Mean Corpuscular Volume 96.1 fl (80-94); Mean Platelet Volume 7.6 fl (7.4-10.4); Monocytes # 0.8 K/mm3 (0.1-1.0); Monocytes % 7.7 % (1.7-9.3); Neutrophils % 66.5 % (37.0-80.0); Platelet Count 186 K/mm3 (142-424); Red Blood Count 5.34 M/mm3 (4.60-6.20); Red Cell Distribution Width 14.5 % (11.5-17.5); White Blood Count 10.5 K/mm3 (4.8-10.8)
[2023-09-17 14:26] LABS: Chloride 106 mmol/L (98-107); Potassium 4.2 mmoL/L (3.5-5.1); Sodium 138 mmol/L (136-145)
[2023-09-17 14:28] LABS: Blood Urea Nitrogen 16 mg/dl (9-20); Creatinine Clearance Estimated 65 mL/min (50-200); Estimated Glomerular Filt Rate 81 ml/min (>60); GFR (African American) 98 ML/MIN (>60)
[2023-09-17 14:29] LABS: Alanine Aminotransferase 53 U/L (12-78); Albumin Level 4.6 g/dl (3.5-5.0); Albumin/Globulin Ratio 1.2 (1.1-1.8); Alkaline Phosphatase 76 U/L (38-126); Anion Gap 13.2 mEq/L (5-15); Aspartate Amino Transferase 50 U/L (17-59); Bilirubin,Total 1.7 mg/dl (0.2-1.3); Carbon Dioxide 23 mmol/L (22.0-30.0); Globulin 3.8 g/dL (1.3-3.2); Glucose 111 mg/dl (74-100); Total Protein,Serum 8.4 g/dl (6.3-8.2)
[2023-09-17 14:30] LABS: Activated Partial Thrombo Time 27.3 seconds (22.8-30.6); INR 1.36 (0.9-1.1); Prothrombin Time 14.4 seconds (10.1-12.5)
--- NOTE | 2023-09-17 14:40 | PC.NURSE ---
Patient to CT
--- NOTE | 2023-09-17 14:52 | PC.NURSE ---
Patient returned from CT
[2023-09-17] MEDS: SODIUM CHLORIDE 0.9% 10ML SYR (RAD ONLY) 10 ML IV (14:59)
[2023-09-17] MEDS: 0.9 % SODIUM CHLORIDE 50 ML VIAL IV (14:59)
[2023-09-17] MEDS: IOPAMIDOL-370 (76%);100ML BOTTLE 100 ML IV (14:59)
--- NOTE | 2023-09-17 16:32 | PC.NURSE ---
Dr. Agosto at bedside
[2023-09-17] MEDS: METHOCARBAMOL 500MG TABLET 1000 MG PO (16:45)
== END 2023-09-17 16:49 | disposition home or self-care (01) ==
PROVIDERS: Student in an Organized Health Care Education/Training Program; Emergency Provider Emergency Medicine; PCP Family Medicine
DX: M54.2 Cervicalgia (principal); I10 Essential (primary) hypertension; E03.9 Hypothyroidism, unspecified; Z79.01 Long term (current) use of anticoagulants; Z86.79 Personal history of other diseases of the circulatory system; R79.1 Abnormal coagulation profile
CPT/HCPCS: 70450; 70496; 70498; 80053; 85025; 85610; 85730; 96374; 99285; Q9967

== ENCOUNTER 2024-01-24 10:50 | Outpatient (CLI) | payer MEDICARE, MEDICAID, SELFPAY ==
[2024-01-24 20:32] LABS: Basophils % 0.4 % (0.1-2.0); Eosinophils # 0.2 K/mm3 (0.0-0.4); Eosinophils % 3.1 % (0.1-12.0); Hematocrit 48.3 % (42.0-52.0); Lymphocytes # 1.8 K/mm3 (0.7-4.5); Lymphocytes % 25.5 % (10-50); Mean Corpuscular HGB Conc 31.1 g/dL (31.8-35.4); Mean Corpuscular Volume 99.7 fl (80-94); Mean Platelet Volume 8.2 fl (7.4-10.4); Monocytes # 0.5 K/mm3 (0.1-1.0); Monocytes % 7.8 % (1.7-9.3); Neutrophils # 4.4 K/mm3 (1.8-7.8); Neutrophils % 63.2 % (37.0-80.0); Platelet Count 208 K/mm3 (142-424); Red Blood Count 4.85 M/mm3 (4.60-6.20); Red Cell Distribution Width 14.2 % (11.5-17.5); White Blood Count 6.9 K/mm3 (4.8-10.8)
[2024-01-24 20:51] LABS: Alanine Aminotransferase 25 U/L (12-78); Albumin Level 3.8 g/dl (3.5-5.0); Albumin/Globulin Ratio 1.3 (1.1-1.8); Alkaline Phosphatase 66 U/L (38-126); Aspartate Amino Transferase 28 U/L (17-59); Bilirubin,Total 0.7 mg/dl (0.2-1.3); Blood Urea Nitrogen 21 mg/dl (9-20); Calcium 9.7 mg/dl (8.4-10.2); Carbon Dioxide 26 mmol/L (22.0-30.0); Chloride 109 mmol/L (98-107); Estimated Glomerular Filt Rate 72 ml/min (>60); GFR (African American) 87 ML/MIN (>60); Glucose 83 mg/dl (74-100); Sodium 140 mmol/L (136-145); Total Protein,Serum 6.8 g/dl (6.3-8.2)
[2024-01-24 21:32] LABS: Thyroid Stimulating Hormone 3.07 uIU/mL (0.465-4.68)
[2024-01-24 21:38] LABS: Anion Gap 9.7 mEq/L (5-15); Potassium 4.7 mmoL/L (3.5-5.1)
== END 2024-01-24 23:59 | disposition home or self-care (01) ==
LOC: LAB.DROPOF 01-25 11:56
PROVIDERS: PCP Family Medicine; Visit Provider Family Medicine
DX: I10 Essential (primary) hypertension (principal); E03.9 Hypothyroidism, unspecified; Z79.01 Long term (current) use of anticoagulants
CPT/HCPCS: 80053; 84443; 85025

== ENCOUNTER 2024-04-20 08:15 | Day surgery (SDC) | payer MEDICARE, MEDICAID, SELFPAY ==
[2024-04-20 08:39] VITALS: BP 109/89; PULSE 73; RESP 16; TEMP 36.3; O2SAT 95
--- NOTE | 2024-04-20 08:40 | P.PNANES_ITS ---
[facility] Disclaimer: The information contained in this section may have been updated after the patient was seen, as this information can be updated by other users. 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 TIA (transient ischemic attack) Degenerative disc disease, lumbar Bilateral low back pain with left-sided sciatica Supratherapeutic INR Bronchitis History of ASCVD Leg pain, bilateral Contusion of toe of right foot Hyperkalemia Left knee pain History of bradycardia [facility] current use of anticoagulant Musculoskeletal chest pain Gallbladder mass Anxiety Hypertension Hypothyroidism Pneumonia Surgical History (Updated 04/20/24 @ 08:34 by Leander Krause) Hx of colonoscopy History of cholecystectomy Family History Other Cancer Diabetes Social History (Updated 04/20/24 @ 08:36 by Leander Krause) Smoking Status: Never smoker second hand exposure: No alcohol intake: never substance use type: denies use current occupational status: retired Travel in the last 8 weeks: None household members: spouse housing: house current occupational exposures/hazards: No caffeine: Yes Have you lived/traveled outside [place] in past 30 days?: No Contact w/someone who lives/traveled outside [place] past 30 days?: No Exposure to someone with infectious disease in past 14 days?: No Do you have a fever (greater than 100.4 F or 38 C)?: No Have you tested positive for COVID-19: No Exposed to someone with COVID-19 in past 14 days?: No Do you have a sore throat?: No Do you have a cough?: No Do you have any weakness?: No Do you have any diarrhea?: No Are you experiencing any unusual bleeding?: No Do you have any muscle aches/pain?: No Do you have any abdominal pain?: No Are you experiencing loss of taste or smell?: No [facility] Anesthesia Checklist Patient Identification Patient Identification: Arm Band, Family and Verbal (Name & ) Structural Data Admitted From: Home Planned Operative Procedure/s: Colonoscopy Consent for Planned Operative Procedure(s) Verified: Yes Verified Documents: Surgical Consent and History and Physical NPO Status Verified Time NPO: 07:00 Chart Verification Results Verified: CBC, BMP, ECG and Chest Xray Additional verifications Anesthesia Reactions: No Hx Blood Transfusions: No Blood Transfusion Reaction: No Previous Colonoscopy: Yes Cardiovascular Assessment Heart Sounds: S1 & S2 Pulse Rhythm: Irregular Peripheral Edema: No Airway Assessment Mallampati Score:: Class II C-Spine Mobility Assessed: Yes (Limited extension) TMJ Mobility Assessed: Yes Dentition: Dentures-good fit Neurological Assessment Level of Consciousness: Awake, Alert, Appropriate and Follows Commands Hx Seizures: Yes Numbness or tingling in extremities: Yes Anesthesia Plan Anesthesia Risk discussed: Yes Anesthesia Plan: Verified ASA Class: III Anesthesia Type: MAC
[2024-04-20] MEDS: LACTATED RINGERS 1000ML 1,000 ML 25 ML IV (08:45)
--- NOTE | 2024-04-20 10:17 | HMH.SCOPE ---
Procedure: Date: 04/20/24 Patient Date of :: 1945 Procedure Performed:: Colonoscopy with polypectomy Indications:: Patient is an 78-year-old male who presents for follow-up colonoscopy. I performed colonoscopy on 02/13/2019 at which time he had numerous polyps removed. 9 of these were tubular adenomas. He had follow-up colonoscopy along with upper endoscopy on 07/08/2020. He had some significant redundancy and atony of the sigmoid colon with pandiverticulosis. There was a sigmoid tubular adenoma. He did have fair colonic preparation at best. 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 I had subsequently performed cholecystectomy on the patient on 10/07/2020. Due to his tubular adenoma on colonoscopy from 2020 he presents for follow-up colonoscopy. Preoperatively patient stated that he had only had 1 previous colonoscopy. However he had 2 according to the record. He also states in the preoperative area during interview that he has family history in his father of colon cancer. He also states during the preoperative interview that he has had trouble moving his bowels and his bowels have not moved with the bowel prep which sounds like 2 bottles of magnesium citrate. However, he did not move his bowels and reportedly drank a bottle of prune juice. Patient expressed concern in the preoperative area that he could have an obstructing colon cancer. . Performing Provider:: Geoffrey Gomez MD Referring Provider:: Velasquez Tidwell MD . Sedation:: MAC sedation Procedure:: Patient history was obtained and appropriate physical examination was performed. Patient's medications and allergies were reviewed. Informed consent was obtained after explaining the benefits, alternatives, and risks of the procedure including, but not limited to, bleeding, perforation, missed lesions, and adverse reaction to anesthesia medications. Patient was transported to endoscopy procedure room. Patient was connected to monitoring devices. Throughout the procedure the patient's blood pressure, pulse, and oxygen saturations were monitored continuously. Patient identification and planned procedure were verified by the staff. Patient was positioned in lateral decubitus position. Digital anorectal exam was performed. Variable stiffness Olympus colonoscope was inserted and advanced under direct visualization to the cecum. Adequacy of the colonic preparation was noted. The colonoscope was then slowly withdrawn while carefully examining the color, texture, anatomy, and integrity of the mucosoa circumferentially. Within the rectum retroflexion was performed. Colonoscope was then withdrawn. Impression: Colonic preparation was very poor with thick opaque particulate stool filling the colon. This was unable to be cleared. However, the colonoscope was able to be advanced to the cecum. There was no obstructing mass. In the ascending colon there were a couple of small possibly adenomatous polyps 1 of which was removed with cold snare and 1 with biopsy forceps. Colonoscope was withdrawn but preparation was poor and visualization was poor. Findings:: Very poor colonic preparation Ascending colon polyps Recommendations:: Reschedule colonoscopy with maximum prep. Complications:: None immediately apparent Estimated blood obtained (mL): 1 Colonoscopy Component Colonoscopy Component Was a colonoscopy performed during today's procedure?: Yes Recommended follow up colonoscopy of at least 10 years?: No If no, follow up colonoscopy recommended in ___ years?: See above Reason for not recommending >/= 10 yr follow-up interval?: See above
[2024-04-20 10:33] VITALS: O2SAT 95
[2024-04-20 11:09] VITALS: BP 95/60; PULSE 56; RESP 18; O2SAT 96
[2024-04-20 11:12] VITALS: BP 82/62; PULSE 64; RESP 18; TEMP 37.1; O2SAT 94
[2024-04-20 11:19] VITALS: BP 113/70; PULSE 63; RESP 18; O2SAT 97
[2024-04-20 11:29] VITALS: BP 121/72; PULSE 58; RESP 18; O2SAT 96
== END 2024-04-20 11:29 | disposition home or self-care (01) ==
PROVIDERS: PCP Family Medicine; Visit Provider Surgery
PROC: 0DJD8ZZ Inspection of Lower Intestinal Tract, Via Natural or Artificial Opening Endoscopic (ICD-10-PCS; CPT 45380; principal; 2024-04-20 09:30)
DX: K63.5 Polyp of colon (principal); Z09 Encounter for follow-up examination after completed treatment for conditions other than malignant neoplasm; Z86.0101 Personal history of adenomatous and serrated colon polyps; Z80.0 Family history of malignant neoplasm of digestive organs
CPT/HCPCS: 45380; 45385; 88305; J7120

== ENCOUNTER 2024-06-02 08:28 | Emergency (ER) | payer MEDICARE, MEDICAID, SELFPAY ==
[2024-06-02 08:29] VITALS: BP 188/104; PULSE 102; RESP 16; TEMP 36.6; O2SAT 94; BMI 23.1
[2024-06-02 08:34] VITALS: BP 188/104; PULSE 113; O2SAT 93
--- NOTE | 2024-06-02 08:41 | PC.NURSE ---
dr ayala at bedside
--- NOTE | 2024-06-02 08:50 | ED_ITS ---
Discharge Plan Disposition Patient Disposition: Home, Self-Care Prescriptions Prescriptions: New polyethylene glycol 3350 17 gram/dose powder 17 g PO DAILY Qty: 850 3RF No Action aspirin [Adult Low Dose Aspirin] 81 mg tablet,delayed release (DR/EC) 81 mg PO DAILY Qty: 30 3RF Linzess 145 mcg capsule 145 mcg PO DAILY Qty: 30 3RF Rx Instructions: Ineffective at lower dose rosuvastatin 10 mg tablet See Rx Instructions .ROUTE .COMPLEX Qty: 90 2RF Dose Instruction: Take 1 Tablet by mouth at bedtime for cholesterol. Rx Instructions: Take 1 Tablet by mouth at bedtime for cholesterol. gabapentin 300 mg capsule 300 mg PO TID Qty: 90 2RF lisinopril 2.5 mg tablet See Rx Instructions .ROUTE .COMPLEX Qty: 30 5RF Dose Instruction: Take 1 Tablet by mouth once daily for blood pressure. Rx Instructions: Take 1 Tablet by mouth once daily for blood pressure. sucralfate 1 gram tablet See Rx Instructions .ROUTE .COMPLEX Qty: 120 3RF Dose Instruction: Take 1 Tablet by mouth before meals and at bedtime. Rx Instructions: Take 1 Tablet by mouth before meals and at bedtime. cholecalciferol (vitamin D3) 125 mcg (5,000 unit) capsule 125 mcg PO DAILY Qty: 30 0RF Rx Instructions: Take 1 Capsule by mouth once daily. clopidogrel [Plavix] 75 mg tablet 75 mg PO DAILY Qty: 90 2RF Rx Instructions: TAKE ONE TABLET BY MOUTH DAILY divalproex 250 mg tablet,delayed release (DR/EC) 250 mg PO DAILY Rx Instructions: Take 1 Tablet by mouth 3 times daily. levothyroxine [Synthroid] 25 mcg tablet 25 mcg PO DAILY Rx Instructions: Take 1 Tablet by mouth once daily for THYROID. docusate sodium 100 mg capsule 100 mg PO DAILY Rx Instructions: Take 1 Capsule by mouth twice daily as needed for constipation. Referrals Follow up/Referrals: Yaw VILLEDA MD [Primary Care Provider] - See instructions Activity Restrictions/Add. Instructions Additional Instructions/Restrictions: Call your family doctor to establish care for this visit to the emergency department and schedule follow-up within 48 hours to ensure improvement. If you have any worsening of your condition or any other concerning signs or symptoms, return to the emergency department or your primary care doctor for further evaluation. 17 g of polyethylene glycol each day. The day before colonoscopy, bowel prep as provided. Do not combine MiraLAX with red, blue or purple Gatorade, Pedialyte, etc. Stick with greens, oranges, clears. Clinical Impressions Clinical Impression: Constipation Instructions Patient Instructions: DI for Constipation Print Language Print Language: Syriac Discharge ED Provider: Young Luciano General Adult HPI General Chief complaint: Recheck/Abnormal Lab/Rx Stated complaint: constipation for a wk Time Seen by Provider: 06/02/24 08:37 Mode of Arrival: Ambulatory Source of Information: Patient Limitations: No Limitations Description of Symptoms (Recalled from ER Triage Doc. by RN): Patient reports that he hasn't had a bowel movement in 1 week. States he has been taking miralax and fibercon with no relief of his symptoms. Denies any pain, nausea or vomiting. Daughter reports that the patient has a colonoscopy scheduled for Tuesday. History of Present Illness HPI narrative: Please note that above description of symptoms, in this electronic medical record under categorization of recalled from ER triage doctor by RN are reflective of an initial nursing assessment, however, is not reflective of my full history and physical exam that was personally taken and clarified. Consequentially, this preceding description of symptoms, which may include the patient's categorized chief complaint in the EMR, do not reflect my personal clinical impression, and the ultimate description of history of present illness and patient stated complaints should be deferred to this section of the note. Unless stated otherwise or congruent with this section of the note, additional signs, symptoms, or incongruence should be interpreted as inaccurate with my clinical impression. Related Data Home Medications ?Medication ?Instructions ?Recorded ?Confirmed divalproex 250 mg tablet,delayed 250 mg PO DAILY 04/19/24 04/27/24 release docusate sodium 100 mg capsule 100 mg PO DAILY 04/19/24 04/27/24 levothyroxine 25 mcg tablet 25 mcg PO DAILY 04/19/24 04/27/24 (Synthroid) Previous Rx's ?Medication ?Instructions ?Recorded aspirin 81 mg tablet,delayed 81 mg PO DAILY splenic infarct #30 09/20/23 release (Adult Low Dose Aspirin) tabs rosuvastatin 10 mg tablet See Rx Instructions .Route 01/18/24 .COMPLEX #90 tabs gabapentin 300 mg capsule 300 mg PO TID pain #90 caps 02/21/24 lisinopril 2.5 mg tablet See Rx Instructions .Route 03/13/24 .COMPLEX #30 tabs linaclotide 145 mcg capsule 145 mcg PO DAILY #30 caps 04/27/24 (Linzess) cholecalciferol (vitamin D3) 125 125 mcg PO DAILY #30 caps 05/10/24 mcg (5,000 unit) capsule clopidogrel 75 mg tablet (Plavix) 75 mg PO DAILY #90 tabs 05/10/24 sucralfate 1 gram tablet See Rx Instructions .Route 05/10/24 .COMPLEX #120 tabs polyethylene glycol 3350 17 17 g PO DAILY #850 grams 06/02/24 gram/dose oral powder Allergies Allergy/AdvReac Type Severity Reaction Status Date / Time No Known Allergies Allergy Verified 04/27/24 11:01 [facility] Disclaimer: The information contained in this section may have been updated after the patient was seen, as this information can be updated by other users. 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 TIA (transient ischemic attack) Degenerative disc disease, lumbar Bilateral low back pain with left-sided sciatica Supratherapeutic INR Bronchitis History of ASCVD Leg pain, bilateral Contusion of toe of right foot Silvadene, cotton pledgett, candelaria tape to 3rd Hyperkalemia Left knee pain Medrol dosepack History of bradycardia nursing home current use of anticoagulant Musculoskeletal chest pain Gallbladder mass Anxiety Hypertension Hypothyroidism Pneumonia Surgical History Hx of colonoscopy History of cholecystectomy Family History Other Cancer Diabetes Social History Smoking Status: Never smoker second hand exposure: No alcohol intake: never substance use type: denies use current occupational status: retired Travel in the last 8 weeks: None household members: spouse housing: house current occupational exposures/hazards: No caffeine: Yes Have you lived/traveled outside [place] in past 30 days?: No Contact w/someone who lives/traveled outside US past 30 days?: No Exposure to someone with infectious disease in past 14 days?: No Do you have a fever (greater than 100.4 F or 38 C)?: No Have you tested positive for COVID-19: No Exposed to someone with COVID-19 in past 14 days?: No Do you have a sore throat?: No Do you have a cough?: No Do you have any weakness?: No Do you have any diarrhea?: No Are you experiencing any unusual bleeding?: No Do you have any muscle aches/pain?: No Do you have any abdominal pain?: No Are you experiencing loss of taste or smell?: No Other 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 Have you received the Flu Vaccine for this season: No Have you received the Pneumonia Vaccine: Yes ROS Obtained: Yes All systems reviewed & no additional complaints except as documented Physical Exam General General appearance: alert and in no apparent distress Head Head exam: atraumatic and normocephalic Eye Eye exam: Present normal appearance, PERRL and EOMI Neck Neck exam: Present normal inspection, full ROM and trachea midline Respiratory Respiratory exam: Absent respiratory distress, wheezes, stridor, accessory muscle use or prolonged expiratory phase Cardiovascular Cardiovascular exam: Present other (Pulses equal symmetric in upper and lower extremities) Abdominal Exam Abdominal exam: Present soft; Absent distention, tenderness or pulsatile mass Extremities Exam Extremities exam: Absent edema Neurological Exam Neurological exam: Present alert, oriented X3 and CN II-XII intact; Absent motor sensory deficit Skin Skin exam: Present warm and dry; Absent diaphoresis or erythema Medical Decision Making Medical Records Medical records reviewed: Yes I reviewed the patient's medical records. Screening: Per USPSTF and CDC recommendations, given the prevalence of disease in our [facility], it is our hospital?s policy to screen for HIV and viral Hepatitis for all patients aged 18 and over and those with ongoing risk factors. Ildefonso Inquiry Pt receiving controlled substance: No Ildefonso was queried for this patient: No Vital Signs: 06/02/24 08:29 06/02/24 08:34 06/02/24 09:00 Temperature 97.9 F Temperature Source Oral Pulse Rate 113 H 86 Pulse Rate [Radial] 102 H Respiratory Rate 16 Blood Pressure 188/104 H 133/83 Blood Pressure [Right Arm] 188/104 H Blood Pressure Mean [Right Arm] 132 Blood Pressure Source Blood Pressure Source [Right Arm] Automatic Cuff Blood Pressure Position [Right Arm] Sitting 02 Sat by Pulse Oximetry 94 L 93 L 93 L Oxygen Delivery Method Room Air Room Air Room Air 06/02/24 09:56 06/02/24 09:56 Temperature 98.2 F Temperature Source Oral Pulse Rate 75 Pulse Rate [Radial] Respiratory Rate 20 Blood Pressure 138/90 Blood Pressure [Right Arm] Blood Pressure Mean [Right Arm] Blood Pressure Source Automatic Cuff Blood Pressure Source [Right Arm] Blood Pressure Position [Right Arm] 02 Sat by Pulse Oximetry 94 L Oxygen Delivery Method Room Air Room Air Orders (Tests/Meds): ORDERS Category Date Time Status HIV Combo Stat Lab 06/02/24 08:39 Ordered Hepatitis C Ab Qual. W/ RFX Stat Lab 06/02/24 08:39 Ordered Medical Decision Narrative: 78-year-old male presenting with chief complaint of I can't shit. States that he has a colonoscopy scheduled for next Tuesday. Has been taking fiber daily, last bowel movement was 3 days ago. Since the last 3 days, has been taking 1 capful of MiraLAX daily, Ex-Lax, passing small amounts of liquidy stool as well as intermittent small, hard pebble-like stools. No abdominal pain, vomiting, fevers, chills, or any other concerns. No blood per rectum. History was obtained via conversation with patient and . On arrival, patient hemodynamically stable, alert, oriented x4, appropriate, GCS 15, moving all extremities spontaneously, pupils equal and reactive to light. Full physical exam performed and significant for very well-appearing male no acute distress. No abdominal tenderness or discomfort. Speaking in full sentences, hemodynamically stable and normal. Differential includes constipation, dehydration, adverse effect of fiber supplement, delayed colonic transit, among others. Labs were considered, patient having no systemic signs or symptoms, still passing gas, very well-appearing with completely normal physical exam, so not deemed necessary. CT of the abdomen and pelvis was also considered, but not deemed necessary given same considerations. Milk and molasses enema was administered. After about 20 minutes of retention, patient had multiple large bowel movements and felt completely relieved. Because patient at baseline without signs or symptoms of clinical decompensation, deemed appropriate for discharge. Results were relayed to patient who voiced understanding and were agreeable to outpatient management and follow up. I discussed my clinical impression with patient and answered all questions. At this time, the evidence for any other entities in the differential is insufficient to warrant any further testing or ED observation. This was explained as well. Advisory was given that persistent or worsening symptoms require further evaluation. I confirmed the understanding of this discussion. 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 Electronic medical physics researcher of the spoken language may permit errors. Although I have reviewed the note, some errors may still exist. Critical Care Critical Care Time Critical Care Time: No
[2024-06-02 09:00] VITALS: BP 133/83; PULSE 86; O2SAT 93
--- NOTE | 2024-06-02 09:15 | PC.NURSE ---
administered milk and molasses enema, pt tolerated well
[2024-06-02 09:56] VITALS: BP 138/90; PULSE 75; RESP 20; TEMP 36.8; O2SAT 94
== END 2024-06-02 09:59 | disposition home or self-care (01) ==
PROVIDERS: Emergency Provider Emergency Medicine; PCP Family Medicine
DX: K59.00 Constipation, unspecified (principal)
CPT/HCPCS: 99283

== ENCOUNTER 2024-06-08 06:51 | Day surgery (SDC) | payer MEDICARE, MEDICAID, SELFPAY ==
--- NOTE | 2024-06-07 10:07 | SUR.PREOP ---
attempted to preop pt at this time, no answer. detailed message left with callback number'
[2024-06-07 10:33] VITALS: BMI 23.1
--- NOTE | 2024-06-08 07:07 | HMH.SCOPE ---
Procedure: Date: 06/08/24 Patient Date of :: 1945 Procedure Performed:: Total colonoscopy to terminal ileum with polypectomy Indications:: Patient is an 78-year-old male who presents for attempt at repeat colonoscopy. I did colonoscopy on 02/13/2019 at which time he had numerous polyps removed 9 of these were tubular adenomas. He underwent colonoscopy as well as EGD on 07/08/2020 at which time he was noted to have pandiverticulosis and tubular adenoma with fair, at best, colonic preparation. I did perform cholecystectomy on the patient on 10/07/2020. Patient underwent colonoscopy on 04/20/2024. At that time it seemed as though the patient had undergone preparation with only 2 bottles of magnesium citrate. Findings revealed very poor colonic preparation with thick opaque particulate stool filling the colon which was unable to be cleared. The colonoscope however was able to be advanced to the cecum and there was no obstructing mass. He was noted to have a couple of tubular adenomas which were removed. Due to the poor visualization recommendations were for repeat colonoscopy with maximum prep. Patient had presented to the emergency department on 06/02/2024 due to symptomatic constipation. Patient was given milk and molasses enema and a prescription for MiraLAX. He presents for follow-up attempted colonoscopy after undergoing magnesium citrate prep again. . Performing Provider:: Geoffrey Gomez MD Referring Provider:: Velasquez Tidwell MD Sedation:: MAC sedation Procedure:: Patient history was obtained and appropriate physical examination was performed. Patient's medications and allergies were reviewed. Informed consent was obtained after explaining the benefits, alternatives, and risks of the procedure including, but not limited to, bleeding, perforation, missed lesions, and adverse reaction to anesthesia medications. Patient was transported to endoscopy procedure room. Patient was connected to monitoring devices. Throughout the procedure the patient's blood pressure, pulse, and oxygen saturations were monitored continuously. Patient identification and planned procedure were verified by the staff. Patient was positioned in lateral decubitus position. Digital anorectal exam was performed. Variable stiffness Olympus colonoscope was inserted and advanced under direct visualization to the cecum. Adequacy of the colonic preparation was noted. The colonoscope was advanced a short distance into the terminal ileum. The colonoscope was then slowly withdrawn while carefully examining the color, texture, anatomy, and integrity of the mucosoa circumferentially. Within the rectum retroflexion was performed. Colonoscope was then withdrawn. Impression: Colonic preparation was fair as there was some particulate liquid stool but this was able to be cleared for the most part with high-volume trans colonoscopic irrigation and suctioning. 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 In the ascending colon there was a small adenomatous appearing polyp removed with cold snare. At the splenic flexure there was a small adenomatous polyp removed with cold snare with another tiny diminutive polyp removed with biopsy forceps. There was sigmoid diverticulosis. He did have some redundancy and atony mostly of the sigmoid colon and there was sigmoid diverticulosis. Retroflexion revealed internal hemorrhoids with 1 hemorrhoid containing a small ulceration likely from recent constipation and administration of enemas in the emergency department. . 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 Recommendations:: Repeat colonoscopy pending pathology. Complications:: None immediately apparent Estimated blood obtained (mL): 1 Colonoscopy Component Colonoscopy Component Was a colonoscopy performed during today's procedure?: Yes Recommended follow up colonoscopy of at least 10 years?: No If no, follow up colonoscopy recommended in ___ years?: See above Reason for not recommending >/= 10 yr follow-up interval?: See above
[2024-06-08 07:14] VITALS: BP 119/89; PULSE 74; RESP 18; TEMP 37; O2SAT 95
--- NOTE | 2024-06-08 07:45 | EXP.ANES.CKL ---
[facility] Disclaimer: The information contained in this section may have been updated after the patient was seen, as this information can be updated by other users. 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 TIA (transient ischemic attack) Degenerative disc disease, lumbar Bilateral low back pain with left-sided sciatica Supratherapeutic INR Bronchitis History of ASCVD Leg pain, bilateral Contusion of toe of right foot Silvadene, cotton pledgett, candelaria tape to 3rd Hyperkalemia Left knee pain Medrol dosepack History of bradycardia residential current use of anticoagulant Musculoskeletal chest pain Gallbladder mass Anxiety Hypertension Hypothyroidism Pneumonia Surgical History Hx of colonoscopy History of cholecystectomy Family History Other Cancer Diabetes Social History Smoking Status: Never smoker second hand exposure: No alcohol intake: never substance use type: denies use current occupational status: retired Travel in the last 8 weeks: None household members: spouse housing: house current occupational exposures/hazards: No caffeine: Yes Have you lived/traveled outside [place] in past 30 days?: No Contact w/someone who lives/traveled outside US past 30 days?: No Exposure to someone with infectious disease in past 14 days?: No Do you have a fever (greater than 100.4 F or 38 C)?: No Have you tested positive for COVID-19: No Exposed to someone with COVID-19 in past 14 days?: No Do you have a sore throat?: No Do you have a cough?: No Do you have any weakness?: No Do you have any diarrhea?: No Are you experiencing any unusual bleeding?: No Do you have any muscle aches/pain?: No Do you have any abdominal pain?: No Are you experiencing loss of taste or smell?: No [facility] Anesthesia Checklist Patient Identification Patient Identification: Arm Band, Family and Verbal (Name & ) Structural Data Admitted From: Home Planned Operative Procedure/s: Colonoscopy Consent for Planned Operative Procedure(s) Verified: Yes Verified Documents: Surgical Consent and History and Physical NPO Status Verified Time NPO: 06:00 Chart Verification Results Verified: CBC, BMP, ECG and Chest Xray Additional verifications Patient : No Anesthesia Reactions: No Hx Blood Transfusions: No Blood Transfusion Reaction: No Cardiovascular Assessment Heart Sounds: S1 & S2 Pulse Rhythm: Irregular Peripheral Edema: No Airway Assessment Mallampati Score:: Class II C-Spine Mobility Assessed: Yes TMJ Mobility Assessed: Yes Dentition: Edentulous Neurological Assessment Level of Consciousness: Awake, Alert, Appropriate and Follows Commands Hx Seizures: Yes Numbness or tingling in extremities: No Anesthesia Plan Anesthesia Risk discussed: Yes Anesthesia Plan: Verified ASA Class: III Anesthesia Type: MAC
[2024-06-08 07:50] VITALS: O2SAT 95
[2024-06-08 08:29] VITALS: BP 96/64; PULSE 65; RESP 16; TEMP 36.2; O2SAT 93
[2024-06-08 08:39] VITALS: BP 108/66; PULSE 60; RESP 16; O2SAT 96
[2024-06-08 08:49] VITALS: BP 115/68; PULSE 66; RESP 16; O2SAT 96
[2024-06-08 08:59] VITALS: BP 118/76; PULSE 67; RESP 16; O2SAT 98
== END 2024-06-08 09:00 | disposition home or self-care (01) ==
PROVIDERS: PCP Family Medicine; Visit Provider Surgery
PROC: 0DJD8ZZ Inspection of Lower Intestinal Tract, Via Natural or Artificial Opening Endoscopic (ICD-10-PCS; CPT 45380; principal; 2024-06-08 08:30)
DX: K63.5 Polyp of colon (principal); K57.30 Diverticulosis of large intestine without perforation or abscess without bleeding; K63.89 Other specified diseases of intestine; K64.0 First degree hemorrhoids
CPT/HCPCS: 45380; 45385

== ENCOUNTER 2025-01-29 11:09 | Outpatient (CLI) | payer MEDICARE, MEDICAID, SELFPAY ==
[2025-01-29 15:30] LABS: Hematocrit 41.3 % (42.0-52.0); Hemoglobin 13.8 g/dL (14.1-18.0); Immature Granulocytes % 0.1 %; Mean Corpuscular HGB Conc 33.4 g/dL (31.8-35.4); Mean Corpuscular Hemoglobin 31.4 pg (27.0-31.2); Mean Corpuscular Volume 94.1 fl (80-94); Nucleated Red Blood Cells % 0 %; Platelet Count 164 K/mm3 (142-424); Red Blood Count 4.39 M/mm3 (4.60-6.20); Red Cell Distribution Width-SD 45.1 fL; White Blood Count 6.7 K/mm3 (4.8-10.8)
[2025-01-29 16:10] LABS: Albumin Level 4.1 g/dl (3.5-5.0); Chloride 104 mmol/L (98-107)
[2025-01-29 16:11] LABS: Potassium 4.7 mmoL/L (3.5-5.1); Sodium 138 mmol/L (136-145)
[2025-01-29 16:13] LABS: Alanine Aminotransferase 20 U/L (12-78); Albumin/Globulin Ratio 1.8 (1.1-1.8); Anion Gap 12.7 mEq/L (5-15); Aspartate Amino Transferase 25 U/L (17-59); Blood Urea Nitrogen 22 mg/dl (9-20); Carbon Dioxide 26 mmol/L (22.0-30.0); Creatinine,Serum 0.90 mg/dl (0.66-1.25); Estimated Glomerular Filt Rate 81 ml/min (>60); GFR (African American) 98 ML/MIN (>60); Globulin 2.3 g/dL (1.3-3.2); Total Protein,Serum 6.4 g/dl (6.3-8.2)
[2025-01-29 16:14] LABS: Alkaline Phosphatase 56 U/L (38-126); Bilirubin,Total 0.7 mg/dl (0.2-1.3); Calcium 9.5 mg/dl (8.4-10.2); Glucose 85 mg/dl (74-100)
[2025-01-29 16:41] LABS: Thyroid Stimulating Hormone 2.90 uIU/mL (0.465-4.68)
--- OUTSIDE RECORDS SUMMARY | 2025-01-30 09:42 | XMS_ITS | Encounter Summary ---
Author Organization Healthcare Address [address] [place] [address] Care Team Providers Care Risk Management Specialist Name Role Phone Galindo Tidwell MD Primary Care Provider [phone] Cherrie Nazario MD Unavailable Encounter Details Date Type Department Care Team ([facility] st Contact Info) Description 07/26/2023 Orders Only External Location [address] [place] [address] Kale Rocha DO [address] [place], [place] [id number] Social History Tobacco Use Types Packs/Day Years Used Date Smoking Tobacco: Never Assessed Sex and Gender Information Value Date Recorded Sex Assigned at Not on file Legal Sex Male 10:38 AM EDT Gender Identity Not on file Sexual Orientation Not on file documented as of this encounter Plan of Treatment Not on file documented as of this encounter Procedures Procedure Name Priority Date/Time Associated Diagnosis Comments MR OUTSIDE IMAGES 07/26/2023 7:21 AM EDT documented in this encounter Results * MR transfer of outside films (07/26/2023 7:21 AM EDT) Anatomical Region Laterality Modality Magnetic Resonan ce 07/26/2023 7:21 AM EDT Kale Rocha DO IMG MRI PROCEDURES Final Result documented in this encounter Visit Diagnoses Not on filedocumented in this encounter Care Teams Risk Management Specialist Relationship Specialty Start Date End Date Galindo Tidwell MD [address] [place], [place] [id number] PCP - General 08/30/23 Cherrie Nazario MD [address] [place] [address] Surgeon Neurosurgery 08/30/23 documented as of this encounter
--- OUTSIDE RECORDS SUMMARY | 2025-01-30 09:42 | XMS_ITS | Clinical Summary ---
Author Organization [facility] Address [address] [place] [address] Care Team Providers Care Central Supply Aide Name Role Phone Galindo Tidwell MD Primary Care Provider [phone] Cherrie Nazario MD Unavailable Allergies No known active allergies Medications divalproex (Depakote) [address] tablet .COMPLEX 01/14/2023 Active gabapentin (Neurontin) 300 MG capsule 1 capsule (300 mg). 07/12/2023 Active levothyroxine (Synthroid, Levoxyl) 25 MCG tablet TAKE 1 TABLET BY MOUTH ONCE DAILY FOR THYROID. Active lisinopril 2.5 MG tablet TAKE 1 TABLET BY MOUTH ONCE DAILY FOR BLOOD PRESSURE. Active aspirin 81 MG EC tablet Take 1 tablet (81 mg) by mouth 1 (one) time each day. Active diazePAM (Valium) 2 MG tablet Take by mouth every 8 (eight) hours if needed for anxiety. Active donepezil (Aricept) 10 MG tablet Take 1 tablet (10 mg) by mouth every night. Active warfarin (Coumadin) 3 MG tablet Take 1 tablet (3 mg) by mouth 1 (one) time each day. Take as directed per After Visit Summary. Active Social History Tobacco Use Types Packs/Day Years Used Date Smoking Tobacco: Never Smokeless Tobacco: Never Tobacco Cessation:Counseling Given: Not Answered Alcohol Use Standard Drinks/Week Comments Never 0 (1 standard drink = 0.6 oz pur e alcohol) Sex and Gender Information Value Date Recorded Sex Assigned at Not on file Legal Sex Male 10:38 AM EDT Gender Identity Not on file Sexual Orientation Not on file Last Filed Vital Signs Vital Sign Reading Time Taken Comments Blood Pressure 121/77 08/30/2023 8:16 AM EDT Pulse - - Temperature - - Respiratory Rate - - Oxygen Saturation - - Inhaled Oxygen Concentration - - Weight 80.7 kg (178 lb) 08/30/2023 8:16 AM EDT Height 188 cm (6' 2 ) 08/30/2023 8:16 AM EDT Body Mass Index 22.85 08/30/2023 8:16 AM EDT Plan of Treatment Health Maintenance Due Date Last Done Comments [facility]-Depression Screening 1945 [facility]-Medicare Annual Wellness (AWV) 1945 [facility]-/Child/Adol SDOH Screenings 1945 [id number] Vaccine (#1) 11/05/1948 [facility]- SDOH Screenings 11/05/1961 [facility]-Adult SDOH Screenings 11/05/1961 [facility]-Zoster Vaccines (1 of 2) 11/05/1993 [facility]-DTaP,Tdap,and Td Vaccines (1 - Tdap) 07/13/1996 07/12/1996 [facility]-RSV Vaccine: 60+ Years or (1 - 1-dose 75+ series) 11/05/2018 [facility]-Influenza Vaccine (#1) 2025 [facility]-Pneumococcal Vaccine: 50+ Years Completed 02/27/2021, 02/26/2020 HPV Vaccines Aged Out No longer eligi ble based on patient's age to complete this topic [facility]-HIB Vaccines Aged Out No longer e ligible based on patient's age to complete this topic [facility]-Hepatitis A Vaccines Aged Out No longer eligible based on patient's age to complete this topic [facility]Y-IPV Vaccines Aged Out No longer e ligible based on patient's age to complete this topic UKY-Rotavirus Vaccines Aged Out No lo nger eligible based on patient's age to complete this topic Insurance [facility] MEDICARE Care Teams Central Supply Aide Relationship Specialty Start Date End Date Galindo Tidwell MD [address] [place] [address] PCP - General 08/30/23 Cherrie Nazario MD [address] [facility] [address] [place] [address] Surgeon Neurosurgery 08/30/23
--- OUTSIDE RECORDS SUMMARY | 2025-01-30 09:42 | XMS_ITS | Clinical Summary ---
Author Organization [facility] Address [address] [facility] [address] [place] [address] Phone Care Team Providers Care Family Physician Name Role Phone Galindo Tidwell MD Primary Care Provider [phone] Allergies No known active allergies Medications gabapentin (NEURONTIN) 300 mg Oral Capsule Take 300 mg by mouth 3 times daily. 1 Active LEVOthyroxine (SYNTHROID) 25 mcg Oral Tablet Take 25 mcg by mouth daily. 1 Active DOK 100 mg Oral Tablet TAKE ONE CAPSULE BY MOUTH TWICE DAILY NEEDED FOR CONSTIPATION 1 Active sucralfate (CARAFATE) 1 gram Oral Tablet 1 Active diazePAM (VALIUM) 2 mg Oral Tablet Take 4 mg by mouth nightly. 1 Active metoprolol succinate (TOPROL-XL) 25 mg Oral Tablet Sustained Release 24 hr Take 25 mg by mouth daily. 1 Active rosuvastatin (CRESTOR) 10 mg Oral Tablet Take 10 mg by mouth nightly. 1 Active lisinopriL (PRINIVIL;ZESTR IL) 2.5 mg Oral Tablet Take 2.5 mg by mouth daily. 1 Active divalproex (DEPAKOTE) 250 mg Oral Tablet, Delayed Release (E.C.) 1 Active warfarin (COUMADIN) 3 mg Oral Tablet TAKE 2 TABLETS BY MOUTH EVERY TUESDAY AND 1 TABLET ON DAYS TUESDAY-Tuesday 1 Active LINZESS 145 mcg Oral CapsuleIndicati ons:Constipatio n, chronic TAKE ONE CAPSULE BY MOUTH ONCE DAILY BEFORE BREAKFAST 30 Capsule 5 2 Active Surgical History Surgery Date Site/Laterality Comments COLONOSCOPY UPPER GASTROINTESTINAL ENDOSCOPY ABDOMINAL HERNIA REPAIR 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 Date Comments Colon polyp TIA (transient ischemic attack) HTN (hypertension) Abdominal hernia Family History 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 Relation Name Comments Colon Cancer Father Stomach Cancer Paternal Grandmother Relation Name Status Comments Father Paternal Grandmother Social History Tobacco Use Types Packs/Day Years Used Date Smoking Tobacco: Former Pipe Smokeless Tobacco: Never Alcohol Use Standard Drinks/Week Comments Never 0 (1 standard drink = 0.6 oz pur e alcohol) AUDIT-C Answer Date Recorded Q1: How often do you have a drink containing alc ohol? Never 09/15/2020 Average Number of Drinks Not on file 021 Frequency of Binge Drinking Not on file 09/06 Sexually Active Control Partners Comments Never Sex and Gender Information Value Date Recorded Sex Assigned at Not on file Legal Sex Male 4:02 PM EDT Gender Identity Not on file Sexual Orientation Not on file Obstetrics History Last Filed Vital Signs Vital Sign Reading Time Taken Comments Blood Pressure 142/84 09/15/2020 9:12 AM EDT Pulse - - Temperature - - Respiratory Rate - - Oxygen Saturation - - Inhaled Oxygen Concentration - - Weight 83.6 kg (184 lb 4.8 oz) 09/15/2020 9:12 A M EDT Height 188 cm (6' 2 ) 09/15/2020 9:12 AM EDT Body Mass Index 23.66 09/15/2020 9:12 AM EDT Plan of Treatment Health Maintenance Due Date Last Done Comments Wellness Exam Medicare 11/05/1948 Zoster (1 of 2) 11/05/1993 DTaP/TDaP/Td (1 - Tdap) 07/13/1996 07/12/1996 RSV or 60+ (1 - 1-d ose 75+ series) 11/05/2018 Pneumococcal Vaccine 50+ (2 of 2 - PCV20 or PCV21) 02/25/2021 02/26/2020 COVID-19 Vaccine ( - 2023-2 5 season) 2025 Influenza Vaccine (#1) 2025 Hepatitis B Vaccine Aged Out No longe r eligible based on patient's age to complete this topic Meningococcal B Vaccine Aged Out No l onger eligible based on patient's age to complete this topic Insurance [facility] DUAL COMPLETE HMO KYDSNP Care Teams Family Physician Relationship Specialty Start Date End Date Galindo Tidwell MD [address] [facility] [address] [facility] [address] PCP - General Family Medicine 09/15/20
== END 2025-01-29 23:59 ==
LOC: LAB.DROPOF 01-30 09:35
PROVIDERS: PCP Family Medicine; Visit Provider Family Medicine
DX: E03.9 Hypothyroidism, unspecified (principal); J39.9 Disease of upper respiratory tract, unspecified; Z86.79 Personal history of other diseases of the circulatory system
CPT/HCPCS: 80053; 84443; 85025

== ENCOUNTER 2025-04-22 08:21 | Outpatient (CLI) | payer MEDICARE, MEDICAID, SELFPAY ==
[2025-04-22 20:29] LABS: Coronavirus 19, PCR Not Detected (NotDetected); Influenza A, PCR Not Detected (NotDetected); Influenza B, PCR Not Detected (NotDetected)
[2025-04-22 20:51] LABS: Hematocrit 48.2 % (42.0-52.0); Hemoglobin 16.2 g/dL (14.1-18.0); Immature Granulocytes % 0.1 %; Mean Corpuscular HGB Conc 33.6 g/dL (31.8-35.4); Mean Corpuscular Hemoglobin 31.4 pg (27.0-31.2); Mean Corpuscular Volume 93.4 fl (80-94); Nucleated Red Blood Cells % 0 %; Platelet Count 182 K/mm3 (142-424); Red Blood Count 5.16 M/mm3 (4.60-6.20); Red Cell Distribution Width-SD 46.6 fL; White Blood Count 8.0 K/mm3 (4.8-10.8)
[2025-04-22 21:46] LABS: Alanine Aminotransferase 25 U/L (12-78); Albumin Level 5.0 g/dl (3.5-5.0); Albumin/Globulin Ratio 1.5 (1.1-1.8); Alkaline Phosphatase 77 U/L (38-126); Anion Gap 15.0 mEq/L (5-15); Aspartate Amino Transferase 29 U/L (17-59); Bilirubin,Total 0.9 mg/dl (0.2-1.3); Blood Urea Nitrogen 27 mg/dl (9-20); Calcium 10.5 mg/dl (8.4-10.2); Carbon Dioxide 26 mmol/L (22.0-30.0); Chloride 104 mmol/L (98-107); Creatinine,Serum 1.20 mg/dl (0.66-1.25); Estimated Glomerular Filt Rate 58 ml/min (>60); GFR (African American) 70 ML/MIN (>60); Globulin 3.3 g/dL (1.3-3.2); Glucose 96 mg/dl (74-100); Potassium 5.0 mmoL/L (3.5-5.1); Sodium 140 mmol/L (136-145); Total Protein,Serum 8.3 g/dl (6.3-8.2)
[2025-04-22 22:16] LABS: Thyroid Stimulating Hormone 3.99 uIU/mL (0.465-4.68)
--- OUTSIDE RECORDS SUMMARY | 2025-04-24 08:25 | XMS_ITS | Clinical Summary ---
Author Organization [facility] Address [address] [place] [address] Care Team Providers Care Musical Instrument Mechanic Name Role Phone Galindo Tidwell MD Primary Care Provider [phone] Cherrie Nazario MD Unavailable Allergies No known [...] Wellness (AWV) 1945 [facility]-/Child/Adol SDOH Screenings 1945 [id number] Vaccine (#1) 05/07/1944 [facility]- SDOH Screenings 11/05/1961 [facility]-Adult SDOH Screenings 11/05/1961 [facility]-Zoster Vaccines (1 of 2) 11/05/1993 [facility]-DTaP,Tdap,and Td Vaccines (1 - Tdap) 07/13/1996 07/12/1996 [facility]-RSV Vaccine: 60+ Years or (1 - 1-dose 75+ series) 11/05/2018 [facility]-Influenza Vaccine (#1) 2025 [facility]-Pneumococcal Vaccine: 50+ Years Completed 02/27/2021, 02/26/2020 HPV Vaccines (No Doses Required) Completed [facility]-HIB Vaccines Aged Out No longer e [...] patient's age to complete this topic Insurance [facility] MEDICARE Care Teams Musical Instrument Mechanic Relationship Specialty Start Date End Date Galindo Tidwell MD [address] [place] [address] PCP - General 08/30/23 Cherrie Nazario MD [address] [place] [id number] Surgeon Neurosurgery 08/30/23
--- OUTSIDE RECORDS SUMMARY | 2025-04-24 08:25 | XMS_ITS | Clinical Summary ---
Author Organization [facility] Address [address] [facility] [address] [facility] [place] [address] Phone Care Team Providers Care Terrazzo Supervisor Name Role Phone Galindo Tidwell MD Primary Care Provider [phone] Allergies No known active allergies Medications gabapentin [...] PCV21) 02/25/2021 02/26/2020 COVID-19 Vaccine ( - 2024-2 6 season) 2025 Influenza Vaccine (#1) 2025 Hepatitis B Vaccine Aged Out No longe r eligible based on patient's age to complete this topic Meningococcal B Vaccine Aged Out No l onger eligible based on patient's age to complete this topic Insurance [facility] DUAL COMPLETE HMO KYDSNP Care Teams Terrazzo Supervisor Relationship Specialty Start Date End Date Galindo Tidwell MD [address] [facility] [address] [facility] [address] PCP - General Family Medicine 09/15/20
--- OUTSIDE RECORDS SUMMARY | 2025-04-24 08:25 | XMS_ITS | Encounter Summary ---
Author Organization Healthcare Address [address] [place] [address] Care Team Providers Care Marine Pipe Welder Name Role Phone Galindo Tidwell MD Primary Care Provider [phone] Cherrie Nazario MD Unavailable Encounter Details Date Type Department Care Team ([facility] st Contact Info) Description 07/26/2023 Orders Only External Location [address] [place] [address] Kale Rocha DO [address] [place], [place] [id number] Social History Tobacco Use Types Packs/Day Years [...] on filedocumented in this encounter Care Teams Marine Pipe Welder Relationship Specialty Start Date End Date Galindo Tidwell MD [address] [place], [place] [id number] PCP - General 08/30/23 Cherrie Nazario MD [address] [place] [address] Surgeon Neurosurgery 08/30/23 documented as of this encounter
== END 2025-04-22 23:59 | disposition home or self-care (01) ==
LOC: LAB.DROPOF 04-24 08:22
PROVIDERS: PCP Family Medicine; Visit Provider Nurse Practitioner
DX: J01.00 Acute maxillary sinusitis, unspecified (principal); R42 Dizziness and giddiness; I10 Essential (primary) hypertension; H66.91 Otitis media, unspecified, right ear; R31.9 Hematuria, unspecified
CPT/HCPCS: 80053; 84443; 85025; 87086; 87631